=== PATIENT | male | born 1960 | race Caucasian/White ===

== ENCOUNTER 2017-09-26 10:30 | Outpatient (CLI) | payer BC ==
[~2017-09-26] VITALS: Ht 180.3 cm; Wt 120.7 kg
[2017-09-26 10:44] VITALS: BP 139/93
[2017-09-26] MEDS ORDERED: LISI-552 PO (10:51)
[2017-09-26] MEDS ORDERED: AMLO10TA2 PO (10:51)
[2017-09-26] MEDS ORDERED: CLON0.1T PO (10:51)
[2017-09-26] MEDS ORDERED: HYDR-3820 PO (10:51)
[2017-09-26 11:23] LABS: BASOPHILS % (AUTO) 0 % (0-10); EOSINOPHILS # (AUTO) 0.2 10^3/uL (0.0-0.3); EOSINOPHILS % (AUTO) 3 % (0-10); HEMATOCRIT 40 % (40-54); HEMOGLOBIN 12.9 G/DL (13.3-17.7); LYMPHOCYTES # (AUTO) 1.3 X 10^3 (1.0-4.0); LYMPHOCYTES % (AUTO) 24 % (12-44); MEAN CORPUSCULAR HEMOGLOBIN 28 PG (25-34); MEAN CORPUSCULAR HGB CONC 33 G/DL (32-36); MEAN CORPUSCULAR VOLUME 86 FL (80-99); MEAN PLATELET VOLUME 8.4 FL (7.4-10.4); MONOCYTES # (AUTO) 0.4 X 10^3 (0.0-1.0); MONOCYTES % (AUTO) 7 % (0-12); NEUTROPHILS # (AUTO) 3.6 X 10^3 (1.8-7.8); NEUTROPHILS % (AUTO) 66 % (42-75); PLATELET COUNT 357 10^3/uL (130-400); RED BLOOD COUNT 4.62 10^6/uL (4.35-5.85); RED CELL DISTRIBUTION WIDTH 12.9 % (10.0-14.5); WHITE BLOOD COUNT 5.5 10^3/uL (4.3-11.0)
[2017-09-26 11:39] LABS: BUN/CREATININE RATIO 18; CARBON DIOXIDE 23 MMOL/L (21-32); CHLORIDE 106 MMOL/L (98-107); CREATININE SERUM 0.85 MG/DL (0.60-1.30); GFR ESTIMATED > 60; GLUCOSE 111 MG/DL (70-105); POTASSIUM 3.8 MMOL/L (3.6-5.0); SODIUM 138 MMOL/L (135-145)
[2017-09-26] MEDS ORDERED: FURO20TA4 PO (13:50)
== END 2017-09-26 11:15 | disposition home or self-care (01) ==
LOC: PREOP 10:30
PROVIDERS: ATTEND Orthopaedic Surgery Orthopaedic Surgery of the Spine
DX: Z01.810 Encounter for preprocedural cardiovascular examination (principal); Z01.812 Encounter for preprocedural laboratory examination; Z11.2 Encounter for screening for other bacterial diseases; M41.9 Scoliosis, unspecified
CPT/HCPCS: 36415; 80048; 85025; 86850; 86900; 86901; 87081; 93005

== ENCOUNTER 2017-12-27 09:00 | Outpatient (CLI) | payer BC ==
[~2017-12-27] VITALS: Ht 180.3 cm; Wt 120.7 kg
[~2017-12-27 09:00] MED LIST: AMLO10TA6 PO; CLON0.1T PO; FURO20TA4 PO; HYDR-3820 PO; LISI-552 PO
== END 2017-12-27 16:00 | disposition home or self-care (01) ==
LOC: PREOP 09:00
PROVIDERS: ATTEND Orthopaedic Surgery Orthopaedic Surgery of the Spine
DX: Z01.818 Encounter for other preprocedural examination (principal)

== ENCOUNTER 2018-01-07 08:44 | Inpatient (IN) | payer BC ==
[2018-01-07] VITALS (12 sets, daily range): BP systolic 96–157; BP diastolic 61–105
[~2018-01-07] VITALS: Ht 180.3 cm; Wt 120.7 kg
--- OUTSIDE RECORDS SUMMARY | 2018-01-07 08:48 | XMS REPORT | Clinical Summary ---
Author Author MD Vickie, Chente Adkins [facility], [facility] Address [address] [facility] [address] [place] [address] Phone Care Team Providers Care Cooker Sulfate Name Role Phone MD Vickie, Chente Adkins Unavailable Conditions or Problems Problem Name Problem Code Onset Date Status Entry Date Provider Comment Standard Description Annotate Scoliosis, lumbar spine 312840684 (SNOMED CT) Active Stacey Diaz Scoliosis of lumbar spine Gait postural instability 46545793 (SNOMED CT) Active Stacey Diaz Unsteady when walking Spinal stenosis, lumbar region without neurogenic claudication 60262731 ( SNOMED CT) Active Stacey Diaz Spinal stenosis of lumbar region Post-laminectomy syndrome 74927938 (SNOMED CT) Active Stacey Diaz Post-laminectomy syndrome Degenerative disc disease, lumbar spine 49502911 (SNOMED CT) Active Stacey Diaz Degeneration of lumbar intervertebral disc Back pain, low 146636306 (SNOMED CT) Active Tsacey Diaz Low back pain Medications Medication Instructions Start Date Stop Date Generic Name ND Provider AMLODIPINE BESYLATE 10 MG TABS TK 1 T PO DAILY AMLODIPINE BESYLATE [id number] Daphiney Garcia LISINOPRIL 20 MG TABS TK 1 T PO DAILY LISINOPRIL [id number] Daphiney Garcia HYDROCODONE-ACETAMINOPHEN 10-325 MG TABS TK 1 T PO Q 4 HOURS PRN FOR MODERATE PAIN. MAX DAILY AMOUNT 6 TABLETS HYDROCODONE-ACETAMINOPHEN 15234028082 Daphiney Garcia CYCLOBENZAPRINE HCL 10 MG TABS TK 1 T PO TID CYCLOBENZAPRINE HCL 71682485182 Tito Garcia CLONIDINE HCL 0.1 MG TABS TAKE 1 TABLET PO TID CLONIDINE HCL 79297872775 Tito Garcia FUROSEMIDE 20 MG TABS FUROSEMIDE 58771447202 Tito Garcia ASPIRIN EC LOW DOSE 81 MG TBEC TK 1 T PO DAILY ASPIRIN 65302298579 Tito Solvedra HYDROCODONE-ACETAMINOPHEN 7.5-325 MG TABS TK 1 T PO Q 6 HOURS PRN FOR PAIN HYDROCODONE-ACETAMINOPHEN 74714846158 Tito Solvedra MELOXICAM 7.5 MG TABS TK 1 T PO DAILY MELOXICAM 40683597704 Tito Solvedra PANTOPRAZOLE SODIUM 40 MG TBEC TK 1 T PO DAILY PANTOPRAZOLE SODIUM 02094162627 Tito Solvedra TRAMADOL HCL 50 MG TABS TK 2 TS PO Q 6 HOURS PRN TRAMADOL HCL 65852099221 Tito Solvedra DIAZEPAM 5 MG TABS TK 1 T PO NIGHTLY DIAZEPAM 72551539771 Tito Solvedra HYDROCODONE-ACETAMINOPHEN 5-325 MG TABS TK 1 T PO Q 4 H PRN P MAX 6 PER DAY HYDROCODONE-ACETAMINOPHEN 72962884532 Tito Solvedra SULFAMETHOXAZOLE-TRIMETHOPRIM 800-160 MG TABS TK 1 T PO BID FOR 7 DAYS SULFAMETHOXAZOLE-TRIMETHOPRIM 72005617030 Tito Solvedra Medications Administered No information available. Allergies, Adverse Reactions, Alerts Observed no known allergies at Results Date Name Value Unit Range Flag Description Office Visit: SPINE NEW SCOLIOSIS LUMBAR, NO INJURY OR SURGERY, PREVIOUS ROLAND... 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 Procedures Code Procedure Name Date Entry Date REF SEND LETTER TO REF CPT-72455 Lumbar Spine 4-6 Views Vital Signs Date Name Value Unit Description BMI (Body Mass Index) 36.40 kg/m2 Body Mass Index [Ratio] Height 71 [in_us] height E&M Weight Measured 261 [lb_av] weight E&M Encounters Code Encounter Date Provider Facility [id number] 76382- New Level III Chente Johnston MD [facility], [facility] Social History Concept Description Observation Name Observation Value Units Start Date Alcohol use ETOH USE No Never smoker SMOK STATUS Never smoker
--- OUTSIDE RECORDS SUMMARY | 2018-01-07 08:48 | XMS REPORT ---
Author Author SURINDER SMITH [facility] Address Unknown Care Team Providers Care Supplier Quality Engineering Manager Name Role Phone SURINDER SMITH Unavailable PROBLEMS Unknown Problems ALLERGIES No Known Allergies ENCOUNTERS Encounter Location Date Diagnosis [facility] [id number] [phone] May, Dental caries K02.9 [facility] [address] [id number] Apr, Dental examination Z01.20 IMMUNIZATIONS No Known Immunizations SOCIAL HISTORY Never Assessed REASON FOR VISIT carolyn PLAN OF CARE Activity Details Follow Up prn Reason:TE root tips #30 VITAL SIGNS Blood pressure systolic 124 mmHg 2017-04-20 Blood pressure diastolic 77 mmHg 2017-04-20 MEDICATIONS Medication Instructions Dosage Frequency Start Date End Date Duration Status Fish Oil Active Hydrocodone-Acetaminophen Active RESULTS No Results PROCEDURES Procedure Date Ordered Result Body Site LTD ORAL EVALUATION - PROBLEM FOCUS Apr 20, 2017 INTRAORL-PERIAPICAL 1 FILM [id number] Apr 20, 2017 BITEWING - SINGLE FILM Apr 20, 2017 INSTRUCTIONS MEDICATIONS ADMINISTERED No Known Medications MEDICAL (GENERAL) HISTORY Type Description Date Medical History high blood pressure Surgical History back surgery Surgical History neck surgery Hospitalization History above surgery
--- OUTSIDE RECORDS SUMMARY | 2018-01-07 08:48 | XMS REPORT | Clinical Summary ---
Author Author MD Vickie, Chente Adkins Organization [facility], [facility] Address [address] [facility] [address] [place] [address] Phone Care Team Providers Care Mill Tender Washing Name Role Phone MD Vickie, Chente Adkins Unavailable Conditions or Problems Problem Name Problem Code Onset Date Status Entry Date Provider Comment Standard Description Annotate Scoliosis, lumbar spine 690924440 (SNOMED CT) Active Stacey Diaz Scoliosis of lumbar spine Gait postural instability 89864462 (SNOMED CT) Active Stacey Diaz Unsteady when walking Spinal stenosis, lumbar region without neurogenic claudication 86669737 ( SNOMED CT) Active Stacey Diaz Spinal stenosis of lumbar region Post-laminectomy syndrome 75300411 (SNOMED CT) Active Stacey Diaz Post-laminectomy syndrome Degenerative disc disease, lumbar spine 71648670 (SNOMED CT) Active Stacey Diaz Degeneration of lumbar intervertebral disc Back pain, low 569483800 (SNOMED CT) Active Staceyhussein Diaz Low back pain Medications Medication Instructions Start Date Stop Date Generic Name [facility] Provider AMLODIPINE BESYLATE 10 MG TABS TK 1 T PO DAILY AMLODIPINE BESYLATE [id number] Daphiney Garcia LISINOPRIL 20 MG TABS TK 1 T PO DAILY LISINOPRIL 10516518697 Daphiney Garcia HYDROCODONE-ACETAMINOPHEN 10-325 MG TABS TK 1 T PO Q 4 HOURS PRN FOR MODERATE PAIN. MAX DAILY AMOUNT 6 TABLETS HYDROCODONE-ACETAMINOPHEN 11251393461 Daphiney Garcia CYCLOBENZAPRINE HCL 10 MG TABS TK 1 T PO TID CYCLOBENZAPRINE HCL 05780952040 Tito Solvedra CLONIDINE HCL 0.1 MG TABS TAKE 1 TABLET PO TID CLONIDINE HCL 17485223386 Tito Solvedra FUROSEMIDE 20 MG TABS FUROSEMIDE 89390323963 Tito Garcia ASPIRIN EC LOW DOSE 81 MG TBEC TK 1 T PO DAILY ASPIRIN 99781885997 Tito Solvedra HYDROCODONE-ACETAMINOPHEN 7.5-325 MG TABS TK 1 T PO Q 6 HOURS PRN FOR PAIN HYDROCODONE-ACETAMINOPHEN 18852717447 Tito Solvedra MELOXICAM 7.5 MG TABS TK 1 T PO DAILY MELOXICAM 97323357694 Tito Solvedra PANTOPRAZOLE SODIUM 40 MG TBEC TK 1 T PO DAILY PANTOPRAZOLE SODIUM 82670567297 Tito Solvedra TRAMADOL HCL 50 MG TABS TK 2 TS PO Q 6 HOURS PRN TRAMADOL HCL 78143389533 Tito Solvedra DIAZEPAM 5 MG TABS TK 1 T PO NIGHTLY DIAZEPAM 98243389049 Tito Solvedra HYDROCODONE-ACETAMINOPHEN 5-325 MG TABS TK 1 T PO Q 4 H PRN P MAX 6 PER DAY HYDROCODONE-ACETAMINOPHEN 02548909590 Tito Garcia SULFAMETHOXAZOLE-TRIMETHOPRIM 800-160 MG TABS TK 1 T PO BID FOR 7 DAYS SULFAMETHOXAZOLE-TRIMETHOPRIM 96690789114 Tito Garcia Medications Administered No information available. Allergies, Adverse Reactions, Alerts Observed no known allergies at Results Date Name Value Unit Range Flag Description Office Visit: SPINE NEW SCOLIOSIS LUMBAR, NO INJURY OR SURGERY, PREVIOUS ROLAND... 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 Procedures Code Procedure Name Date Entry Date REF SEND LETTER TO REF CPT-78436 Lumbar Spine 4-6 Views Vital Signs Date Name Value Unit Description BMI (Body Mass Index) 36.40 kg/m2 Body Mass Index [Ratio] Height 71 [in_us] height E&M Weight Measured 261 [lb_av] weight E&M Encounters Code Encounter Date Provider Facility CPT-34246 81616- New Level III Chente Johnston MD [facility], [facility] Social History Concept Description Observation Name Observation Value Units Start Date Alcohol use ETOH USE No Never smoker SMOK STATUS Never smoker
--- OUTSIDE RECORDS SUMMARY | 2018-01-07 08:48 | XMS REPORT ---
Author Author SURINDER SMITH [facility] Address Unknown Care Team Providers Care Product Support Technician Name Role Phone SURINDER SMITH Unavailable PROBLEMS Unknown Problems ALLERGIES No Known Allergies ENCOUNTERS Encounter Location Date Diagnosis [facility] [id number] [phone] May, Dental caries K02.9 [facility] [id number] [phone] Apr, Dental examination Z01.20 IMMUNIZATIONS No Known Immunizations SOCIAL HISTORY Never Assessed REASON FOR VISIT TE ROOT TIPS #30 PLAN OF CARE Activity Details Follow Up prn Reason:DIPTI VITAL SIGNS Blood pressure systolic 185 mmHg 2017-05-08 Blood pressure diastolic 106 second time 144 mmHg 2017-05-08 MEDICATIONS Medication Instructions Dosage Frequency Start Date End Date Duration Status Norvasc Active Lisinopril Active Lasix Active Fish Oil Active Sulfamethoxazole Active Hydrocodone-Acetaminophen Active Flexeril Active Amlodipine Besylate Active Furosemide Active Clonidine HCl Active Cyclobenzaprine HCl Active Viagra Active RESULTS No Results PROCEDURES Procedure Date Ordered Result Body Site EXTRAC ERUPTED TOOTH/EXPOSED ROOT May 08, 2017 INSTRUCTIONS MEDICATIONS ADMINISTERED No Known Medications MEDICAL (GENERAL) HISTORY Type Description Date Medical History high blood pressure Surgical History back surgery Surgical History neck surgery Hospitalization History above surgery
--- OUTSIDE RECORDS SUMMARY | 2018-01-07 08:48 | XMS REPORT | Continuity of Care Document ---
Author Author [facility] Organization [facility] Address Unknown Phone Unavailable Allergies Active Description Code Type Severity Reaction Onset Reported/Identified Relationship to Patient Clinical Status Yes No Known Drug Allergies [id number] Drug Allergy Unknown N/A 09/26/2017 Medications There is no data. Problems Date Dx Coded Attending Type Code Diagnosis Diagnosed By 12/25/2017 RAFIQ DOS SANTOS MD, Ot Z01.818 ENCOUNTER FOR OTHER PREPROCEDURAL EXAMIN 12/27/2017 RAFIQ DOS SANTOS MD, Ot Z01.818 ENCOUNTER FOR OTHER PREPROCEDURAL EXAMIN 12/28/2017 RAFIQ DOS SANTOS MD, Ot Z01.818 ENCOUNTER FOR OTHER PREPROCEDURAL EXAMIN Procedures There is no data. Results Test Result Range Complete blood count (CBC) with automated white blood cell (WBC) differential - 09/26/17 11:10 Blood leukocytes automated count (number/volume) 5.5 10*3/uL 4.3-11.0 Blood erythrocytes automated count (number/volume) 4.62 10*6/uL 4.35-5.85 Venous blood hemoglobin measurement (mass/volume) 12.9 g/dL 13.3-17.7 Blood hematocrit (volume fraction) 40 % 40-54 Automated erythrocyte mean corpuscular volume 86 [foz_us] 80-99 Automated erythrocyte mean corpuscular hemoglobin (mass per erythrocyte) 28 pg 25-34 Automated erythrocyte mean corpuscular hemoglobin concentration measurement ( mass/volume) 33 g/dL 32-36 Automated erythrocyte distribution width ratio 12.9 % 10.0-14.5 Automated blood platelet count (count/volume) 357 10*3/uL 130-400 Automated blood platelet mean volume measurement 8.4 [foz_us] 7.4-10.4 Automated blood neutrophils/100 leukocytes 66 % 42-75 Automated blood lymphocytes/100 leukocytes 24 % 12-44 Blood monocytes/100 leukocytes 7 % 0-12 Automated blood eosinophils/100 leukocytes 3 % 0-10 Automated blood basophils/100 leukocytes 0 % 0-10 Blood neutrophils automated count (number/volume) 3.6 10*3 1.8-7.8 Blood lymphocytes automated count (number/volume) 1.3 10*3 1.0-4.0 Blood monocytes automated count (number/volume) 0.4 10*3 0.0-1.0 Automated eosinophil count 0.2 10*3/uL 0.0-0.3 Automated blood basophil count (count/volume) 0.0 10*3/uL 0.0-0.1 Whole blood basic metabolic panel - 09/26/17 11:10 Serum or plasma sodium measurement (moles/volume) 138 mmol/L 135-145 Serum or plasma potassium measurement (moles/volume) 3.8 mmol/L 3.6-5.0 Serum or plasma chloride measurement (moles/volume) 106 mmol/L 98-107 Carbon dioxide 23 mmol/L 21-32 Serum or plasma anion gap determination (moles/volume) 9 mmol/L 5-14 Serum or plasma urea nitrogen measurement (mass/volume) 15 mg/dL 7-18 Serum or plasma creatinine measurement (mass/volume) 0.85 mg/dL 0.60-1.30 Serum or plasma urea nitrogen/creatinine mass ratio 18 NRG Serum or plasma creatinine measurement with calculation of estimated glomerular filtration rate > NRG Serum or plasma glucose measurement (mass/volume) 111 mg/dL 70-105 Serum or plasma calcium measurement (mass/volume) 9.0 mg/dL 8.5-10.1 Blood type T Indirect antibody screen panel - 09/26/17 11:10 ABO+Rh group AP NRG Blood group antibody screen NEGATIVE NRG Methicillin resistant Staphylococcus aureus (MRSA) screening culture - 11:10 Methicillin resistant Staphylococcus aureus (MRSA) screening culture NEG NRG Encounters ACCT No. Visit Date/Time Discharge Status Pt. Type Provider Facility Loc./Unit Complaint [id number] 10/02/2017 20:19:10 10/02/2017 23:59:59 CLS Outpatient MD Vickie, Chente Adkins [id number] 05/08/2017 15:00:00 05/08/2017 23:59:59 CLS Outpatient AFIA LAC, [facility] [id number] 12/27/2017 09:00:00 12/27/2017 16:00:00 DIS Outpatient RAFIQ DOS SANTOS MD [facility] PREOP SCOLIOSIS [id number] 10/08/2017 07:30:00 10/08/2017 23:59:59 CLS Preadmit RAFIQ DOS SANTOS MD [facility] SDC SCOLIOSIS [id number] 09/26/2017 10:30:00 09/26/2017 11:15:00 DIS Outpatient RAFIQ DOS SANTOS MD [facility] PREOP SCOLIOSIS [id number] 01/07/2018 08:44:00 ACT Inpatient RAFIQ DOS SANTOS MD [facility] 4TH SCOLIOSIS
[2018-01-07] MEDS ORDERED: VANCOMYCIN 1000 MG/VIAL ONE (09:29)
[2018-01-07] MEDS ORDERED: ceFAZolin 2 GM IV Premixed 50 ML ONE (09:30)
[2018-01-07] MEDS ORDERED: GENTAMICIN 40 MG/ML 2 ML INJ SDV ONE ×2 (09:30→16:18)
[2018-01-07 09:32] LABS: BASOPHILS % (AUTO) 0 % (0-10); EOSINOPHILS # (AUTO) 0.1 10^3/uL (0.0-0.3); EOSINOPHILS % (AUTO) 2 % (0-10); HEMATOCRIT 46 % (40-54); HEMOGLOBIN 15.1 G/DL (13.3-17.7); LYMPHOCYTES # (AUTO) 1.6 X 10^3 (1.0-4.0); LYMPHOCYTES % (AUTO) 18 % (12-44); MEAN CORPUSCULAR HEMOGLOBIN 29 PG (25-34); MEAN CORPUSCULAR HGB CONC 33 G/DL (32-36); MEAN CORPUSCULAR VOLUME 87 FL (80-99); MEAN PLATELET VOLUME 8.4 FL (7.4-10.4); MONOCYTES # (AUTO) 0.5 X 10^3 (0.0-1.0); MONOCYTES % (AUTO) 6 % (0-12); NEUTROPHILS # (AUTO) 6.3 X 10^3 (1.8-7.8); NEUTROPHILS % (AUTO) 74 % (42-75); PLATELET COUNT 383 10^3/uL (130-400); RED BLOOD COUNT 5.26 10^6/uL (4.35-5.85); WHITE BLOOD COUNT 8.6 10^3/uL (4.3-11.0)
[2018-01-07] MEDS: LACTATED RINGERS 1,000 ML IV PRN ×5 (09:37→16:45)
[2018-01-07] MEDS ORDERED: fentaNYL INJECTION 250 MCG/5 ML AMP ONE (09:37)
[2018-01-07] MEDS ORDERED: MIDAZOLAM 2 MG/2 ML (VERSED) VIAL ONE (09:37)
[2018-01-07] MEDS ORDERED: DEXMEDETOMIDINE 200 MCG/2 ML (PRECEDEX) VIAL IV ONE ×4 (10:27→16:38)
[2018-01-07] MEDS ORDERED: DEXAMETHASONE 10 MG/ML (DECADRON) 1 ML VIAL ONE (10:27)
[2018-01-07] MEDS ORDERED: SEVOFLURANE (ULTANE) 15 ML INHAL SOLN ONE ×17 (10:27→17:37)
[2018-01-07] MEDS ORDERED: ROCURONIUM 10 MG/ML 5 ML SYRINGE IV ONE ×3 (10:27→14:31)
[2018-01-07] MEDS ORDERED: ONDANSETRON 4 MG/2 ML (SDV) Z0FRAN ONE (10:27)
[2018-01-07] MEDS ORDERED: TRANEXAMIC ACID 100 MG/ML 10 ML INJECTION IV ONE ×2 (10:27→13:32)
[2018-01-07] MEDS ORDERED: SUCCINYLCHOLINE INJ 100 MG/5 ML SYR ONE (10:27)
[2018-01-07] MEDS ORDERED: fentaNYL INJECTION 100 MCG/2 ML AMP ONE ×5 (12:11→15:24)
[2018-01-07] MEDS ORDERED: ceFAZolin 1,000 MG/10 ML (ANCEF) VIAL ONE ×4 (13:32→17:11)
[2018-01-07] MEDS ORDERED: ceFAZolin 1,000 MG/10 ML (ANCEF) VIAL IV ONE ×2 (13:45→17:15)
[2018-01-07] MEDS ORDERED: morphine INJ 10 MG/ML 1ML (SYR OR VIAL) ONE ×3 (15:18→19:53)
[2018-01-07] MEDS ORDERED: MEPERIDINE (DEMEROL) INJ 50 MG/ML ONE (15:25)
[2018-01-07] MEDS ORDERED: proPOfol 200 MG/20 ML (DIPRIVAN) VIAL IV ONE ×2 (17:37)
--- NOTE | 2018-01-07 18:03 | Progress Note-Post Operative ---
Post-Operative Progess Note Surgeon (s)/Gasoline Power Shovel Operator (s) Surgeon RAFIQ DOS SANTOS MD Gasoline Power Shovel Operator: TYRONE Duran Pre-Operative Diagnosis Stenosis, scoliosis Post-Operative Diagnosis Same Procedure & Operative Findings Date of Procedure 01/07/18 Procedure Performed/Findings T6-Pelvis AP fusion Anesthesia Type GETA Estimated Blood Loss Estimated blood loss (mL): 1300 Specimens/Packing Specimens Removed None RAFIQ DOS SANTOS MD Jan 07, 2018 6:03 pm
--- NOTE | 2018-01-07 18:53 | Diagnostic Imaging Report ---
INDICATION: Undergoing multilevel interbody fusion. TECHNIQUE: Intraprocedural images thoracolumbar spine, 11:07 AM through 5:53 PM CORRELATION STUDY: None FINDINGS: Fluoroscopy utilized by Dr. Roman for extensive thoracolumbar spine surgery including multilevel interbody fusion and extensive posterior thoracolumbar fusion. Fluoroscopy time: 2 minutes 14 seconds IMPRESSION: 1. Extensive thoracolumbar sacral spine fusion Dictated by: Dictated on workstation # [id number]
[2018-01-07] MEDS ORDERED: PROMETHAZINE 25 MG (PHENERGAN) TAB PO PRN (19:00)
[2018-01-07] MEDS ORDERED: ONDANSETRON 4 MG/2 ML (SDV) Z0FRAN IV PRN (19:00)
[2018-01-07] MEDS ORDERED: BISACODYL 10 MG SUPP (DULCOLAX) PR PRN (19:00)
[2018-01-07] MEDS ORDERED: ACETAMINOPHEN 325 MG TABLET PO PRN (19:00)
[2018-01-07] MEDS: morphine INJ 10 MG/ML 1ML (SYR OR VIAL) IVP PRN ×2 (20:52→23:36)
[2018-01-07] MEDS: DOCUSATE SODIUM 100 MG (COLACE) CAP PO SCH (21:22)
[2018-01-07] MEDS: NS IV 1000 ML 1,000 ML IV SCH (21:22)
[2018-01-07] MEDS: SENNOSIDES 8.6 MG (SENOKOT) TAB PO SCH (21:22)
[2018-01-07] MEDS: oxyCODONE/APAP 10/325MG (PERCOCET 10) TABLET PO PRN (21:22)
[2018-01-07] MEDS: POLYETHYLENE GLYCOL 17 GM (MIRALAX) PACK PO SCH (21:29)
[2018-01-07] MEDS ORDERED: ceFAZolin INJECTION 2,000 MG in NS (IVPB) 50 ML IV SCH (23:00)
[2018-01-07] MEDS: ceFAZolin 2 GM IV Premixed 50 ML IV SCH (23:00)
[2018-01-08] VITALS (21 sets, daily range): BP systolic 95–177; BP diastolic 59–108
[2018-01-08] MEDS: morphine INJ 10 MG/ML 1ML (SYR OR VIAL) IVP PRN (01:13)
[2018-01-08] MEDS: oxyCODONE/APAP 10/325MG (PERCOCET 10) TABLET PO PRN ×4 (01:13→17:05)
[2018-01-08] MEDS: fentaNYL INJECTION 100 MCG/2 ML AMP IV PRN ×7 (02:59→23:34)
--- NOTE | 2018-01-08 02:59 | OPERATIVE REPORT ---
DATE OF SERVICE: 01/07/2018 PREOPERATIVE DIAGNOSES: 1. Post-laminectomy syndrome, progressive idiopathic scoliosis, severe lumbar neural foraminal stenosis due to disk and osseous structures and slippage. 2. Lumbar radiculopathy. POSTOPERATIVE DIAGNOSES: 1. Post-laminectomy syndrome, progressive idiopathic scoliosis, severe lumbar neural foraminal stenosis due to disk and osseous structures and slippage. 2. Lumbar radiculopathy. PROCEDURES PERFORMED: 1. L4-L5 and L5-S1 anterior lumbar interbody fusions for deformity as well as L1-L2, L2-L3 and L3-L4 left-sided anterolateral transpsoas interbody fusions for deformity totalling 5 levels of anterior interbody fusion for deformity. 2. L1-L2, L2-L3, L3-L4, L4-L5 and L5-S1 interbody cage instrumentation without interval fixation. 3. L5-S1 anterior plate instrumentation. 4. T6 to the pelvis posterior spinal fusion for deformity (13 Levels). 5. T6 to the pelvis posterior segmental instrumentation. 6. Pelvic fixation at the caudal end of a construct. 7. Revision bilateral L3-L4 laminectomy, medial facetectomy, foraminotomy. 8. Revision L2-L3 laminectomy, medial facetectomy, foraminotomy. 9. L1-L2 laminectomy, bilateral medial facetectomy, foraminotomy, partially a revision. 10. Allograft for spine surgery morcellized autograft for spine surgery with local. DATE AND TIME OF SURGERY: Please see anesthesia record. IMPLANTS USED: K2M Selby pedicle screw system with marifer-to-marifer connectors, K2M Point Arena lateral cages, K2M [place] 2-hole and 1-hole plates, 4web ALIF spacers, Medtronic Magnifuse bone graft K2M [place] bone graft. SURGEON: Rafiq Dos Santos MD. ELECTRICAL INSTALLER: TAZ Duran. ROLE OF INSURANCE AGENT: Aid in retraction of the procedure, aid in implantation incisional closure. ANESTHESIA: General endotracheal. ESTIMATED BLOOD LOSS: 1300 mL. INTRAVENOUS FLUIDS: Please see anesthesia record. ANTIBIOTICS: Ancef in repeated doses. COMPLICATIONS: None. INDICATIONS FOR PROCEDURE: The patient is a 57-year-old male with progressive degenerative scoliosis, severe neural foraminal stenosis collapse, progressive deformity, had a decompression up at with worsening of his symptoms, worsening of his stenosis, failed conservative therapy, desires operative treatment. NEUROMONITORING: Standard intraoperative neurophysiologic monitoring carried out by means of real time continuous high quality bidirectional mode, audio and visual communication to both the batch room technician and surgeon by Dr. Dangelo was performed. SSEPS, EMGs, TcMEPs, TOFs were carried out continuously throughout the procedure stable. DESCRIPTION OF PROCEDURE: The patient was taken from preoperative holding area and brought back to the operative suite. After adequate induction of general anesthetic, preoperative antibiotics, placed supine on the OR table. Abdomen was prepped and draped in a left-sided retroperitoneal exposure of the 4-5 and 5-1 levels, carried out without difficulty. Once appropriate level was confirmed starting at 4-5, vessels retracted, anterior diskectomy was carried out. Disk decompression all the way back to posterior annulus performed. Deformity correction was achieved and then a 4Web cage filled Allograft bone was impacted into position with great fit achieved at this level. A 1-hole Point Arena plate was affixed to the spine to prevent back out of the cage. Procedure was then carried out at the 5-1 level in a similar manner and a similar 12-degree 4Web cage was impacted at this level and a 2-hole plate securely affixing L5-S1 was performed. Once that was performed, the wound was closed in layers. The patient placed in lateral decubitus position. Standard transpsoas approach to the 1-2, 2-3, and 3-4 levels was carried out utilizing the K2M Point Arena lateral retractor set. Starting at 3-4, disk was prepped. Trial spacer was utilized and the appropriate sized 10 tall Point Arena cage filled allograft bone was impacted into position with great deformity correction achieved. 1-2 was then performed in a similar manner and then 2-3 was inspected and it was easily accessed and therefore the lateral osteophyte was removed and deformity correction at 2-3 was achieved as well with a similar cage. Once all three levels had been treated laterally for treatment from L1-S1 in an anterolateral deformity correction manner, wound was closed in layers. The patient was turned prone on the Montez table, careful padding to all extremities, sterilely prepped and draped posterior thoracic and lumbar and pelvic spine. Incision was made from T6 to pelvis. Full exposure was carried out. Dissection out through the previous scar tissue and once full exposure and levels confirmed, a revision laminectomy of 2-3, 3-4, and then partial revision at 1-2, which had already been approached, but was still quite stenotic decompressing the left lateral recess and foramen of these levels and centrally at 1-2. Once full and adequate revision decompression was achieved, hemostasis achieved, attention directed to placement of screws. Bilateral T6 through S1 screws, except for the right T12, which was skipped, were placed in the bilateral pelvic. S2A1 screws were placed, checked on imaging, checked with neuro monitoring. Rods were contoured and fit and fashioned. Left-sided titanium marifer was placed. Right-sided holding cobalt chrome marifer was placed and then a third cobalt chrome marifer was placed on the left side as well. High speed jennifer was used to decorticate all of the posterior elements from T6 to the pelvis after copious Pulsavac irrigation was utilized and then a combination of autograft and allograft bone was packed posteriorly for the fusion portion of procedure. Deep drain was placed. Wound was closed in layers and the patient was transferred to recovery room in stable condition having tolerated the procedure well with stable spinal monitoring. Job ID: [id number] DocumentID: [id number] Dictated Date: 01/07/2018 18:02:56 Dramatic Director Date: 01/08/2018 02:58:16 Dictated By: RAFIQ DOS SANTOS MD [facility]
[2018-01-08] MEDS: NS IV 1000 ML 1,000 ML IV SCH ×4 (04:01→20:10)
[2018-01-08 04:46] LABS: ALBUMIN 4.1 GM/DL (3.2-4.5); BILIRUBIN,TOTAL 0.5 MG/DL (0.1-1.0); CALCIUM 8.6 MG/DL (8.5-10.1); CREATININE SERUM 1.78 MG/DL (0.60-1.30); MAGNESIUM 2.2 MG/DL (1.8-2.4); PHOSPHORUS 6.6 MG/DL (2.3-4.7); POTASSIUM 5.1 MMOL/L (3.6-5.0); TOTAL PROTEIN 6.3 GM/DL (6.4-8.2)
[2018-01-08 06:06] LABS: HEMOGLOBIN 12.5 G/DL (13.3-17.7); MEAN PLATELET VOLUME 8.8 FL (7.4-10.4); RED BLOOD COUNT 4.42 10^6/uL (4.35-5.85); WHITE BLOOD COUNT 25.1 10^3/uL (4.3-11.0)
--- NOTE | 2018-01-08 06:23 | Progress Note (SOAP) ---
Subjective Date Seen by a Provider: Jan 08, 2018 Time Seen by a Provider: 06:20 Subjective/Events-last exam Awake, very conversant, pain moderate, not well controlled Objective Exam Vital Signs Date Time Temp Pulse Resp B/P (MAP) Pulse Ox O2 Delivery O2 Flow Rate FiO2 01/08/18 06:00 112 10 111/67 (82) 94 Nasal Cannula 3.00 01/08/18 05:00 114 9 102/68 (79) 93 Nasal Cannula 3.00 01/08/18 04:00 120 21 100/71 (81) 91 Nasal Cannula 3.00 01/08/18 04:00 97.6 01/08/18 04:00 97 Nasal Cannula 3.00 01/08/18 03:00 115 10 116/79 (91) 94 Nasal Cannula 3.00 01/08/18 02:00 109 10 108/67 (81) 94 Nasal Cannula 3.00 01/08/18 01:00 107 11 111/70 (84) 95 Nasal Cannula 3.00 01/08/18 01:00 107 01/08/18 00:30 105 11 109/75 (86) 95 Nasal Cannula 3.00 01/08/18 00:00 97.5 01/08/18 00:00 97 Nasal Cannula 3.00 01/07/18 23:42 110 12 124/69 (87) 96 Nasal Cannula 3.00 01/07/18 23:30 102 14 112/77 (89) 98 OxyMask 6.00 01/07/18 23:00 117 12 120/75 (90) 95 OxyMask 6.00 01/07/18 22:30 116 20 119/82 (94) 98 OxyMask 6.00 01/07/18 22:00 100 14 105/70 (82) 95 OxyMask 6.00 01/07/18 21:30 93 16 107/64 (78) 95 OxyMask 6.00 01/07/18 21:00 78 14 109/61 (77) 98 OxyMask 6.00 01/07/18 20:45 80 20 98/63 (75) 94 OxyMask 6.00 01/07/18 20:30 74 12 96/62 (73) 95 OxyMask 6.00 01/07/18 20:22 95 OxyMask 8.00 11/5/18 20:15 77 25 101/65 (77) 93 OxyMask 6.00 01/07/18 20:04 72 25 101/62 (75) 96 OxyMask 6.00 01/07/18 20:00 98.2 01/07/18 20:00 98 OxyMask 6.00 01/07/18 19:00 84 01/07/18 09:20 97.7 94 20 157/105 (122) 99 Room Air I & O 01/08/18 07:00 Intake Total 4350 ml Output Total 2465 ml Balance 1885 ml Capillary Refill : General Appearance: Mild Distress Neck: Non Tender, Supple Respiratory: No Accessory Muscle Use, No Respiratory Distress Cardiovascular: Normal Peripheral Pulses, Tachycardia Gastrointestinal: non tender, soft Extremity: Normal Capillary Refill, No Calf Tenderness Neurologic/Psychiatric: Alert, Oriented x3, No Motor/Sensory Deficits Skin: Normal Color, Warm/Dry Results Lab Laboratory Tests 01/07/18 09:27: White Blood Count 8.6, Red Blood Count 5.26, Hemoglobin 15.1, Hematocrit 46, Mean Corpuscular Volume 87, Mean Corpuscular Hemoglobin 29, Mean Corpuscular Hemoglobin Concent 33, Red Cell Distribution Width 14.0, Platelet Count 383, Mean Platelet Volume 8.4, Neutrophils (%) (Auto) 74, Lymphocytes (%) (Auto) 18, Monocytes (%) (Auto) 6, Eosinophils (%) (Auto) 2, Basophils (%) (Auto) 0, Neutrophils # (Auto) 6.3, Lymphocytes # (Auto) 1.6, Monocytes # (Auto) 0.5, Eosinophils # (Auto) 0.1, Basophils # (Auto) 0.0 01/08/18 04:15: Sodium Level 140, Potassium Level 5.1H, Chloride Level 108H, Carbon Dioxide Level 15L, Anion Gap 17H, Blood Urea Nitrogen 25H, Creatinine 1.78H, Estimat Glomerular Filtration Rate 40, BUN/Creatinine Ratio 14, Glucose Level 149H, Calcium Level 8.6, Corrected Calcium 8.5, Phosphorus Level 6.6H, Magnesium Level 2.2, Total Bilirubin 0.5, Aspartate Amino Transf (AST/SGOT) 41H, Alanine Aminotransferase (ALT/SGPT) 26, Alkaline Phosphatase 84, Total Protein 6.3L, Albumin 4.1 11/6/18 05:56: White Blood Count 25.1H, Red Blood Count 4.42, Hemoglobin 12.5L, Hematocrit 40, Mean Corpuscular Volume 89, Mean Corpuscular Hemoglobin 28, Mean Corpuscular Hemoglobin Concent 32, Red Cell Distribution Width 14.0, Platelet Count 465H, Mean Platelet Volume 8.8 Assessment/Plan Assessment/Plan Assess & Plan/Chief Complaint Scoliosis Post Laminectomy Syndrome Lumbar Stenosis, neural canal and neuroforaminal Hyperkalemia Acute Renal insufficiency Plan: D/W Dr Corley who will assist in care Pain control, medical management Mob[employer]ize RAFIQ DOS SANTOS MD Jan 08, 2018 06:23
[2018-01-08] MEDS: ceFAZolin 2 GM IV Premixed 50 ML IV SCH ×2 (06:34→15:26)
[2018-01-08] MEDS ORDERED: SODIUM BICARB 8.4% 50 MEQ/50 ML (ABBOTT) SYR ONE (06:48)
--- NOTE | 2018-01-08 06:49 | Pulmonary Consultation ---
History of Present Illness History of Present Illness Date of Consultation 01/08/18 06:44 Time Seen by Provider: 06:58 Date of Admission History of Present Illness 57yo with hx Scoliosis with Lumbar stenosis s/p surgery. Pt was admitted to ICU post surgery for close monitoring. Pt complains of moderate back pain from surgery however pain meds are controlling pain. I am consulted for ICU management. Allergies and Home Medications Allergies Coded Allergies: No Known Drug Allergies (Unverified , 09/26/17) Home Medications Amlodipine Besylate 10 Mg Tablet, 10 MG PO DAILY, (Reported) Clonidine HCl 0.1 Mg Tablet, 0.1 MG PO TID, (Reported) Docusate Sodium 100 Mg Capsule, 100 MG PO BID Prescribed by: RAFIQ DOS SANTOS on 01/15/18 0649 Furosemide 20 Mg Tablet, 20 MG PO DAILY PRN for SWELLING IN FEET, (Reported) Lisinopril 20 Mg Tablet, 20 MG PO DAILY, (Reported) Oxycodone HCl 20 Mg Tab.er.12h, 20 MG PO TID Prescribed by: RAFIQ DOS SANTOS on 01/15/18 0649 Oxycodone HCl/Acetaminophen 1 Each Tablet, 1-2 TAB PO Q4H PRN for PAIN-MODERATE Prescribed by: RAFIQ DOS SANTOS on 01/15/18 0649 Sennosides 8.6 Mg Tablet, 8.6 MG PO BID Prescribed by: RAFIQ DOS SANTOS on 01/15/18 0649 Tizanidine HCl 4 Mg Tablet, 4 MG PO TID PRN for SPASMS Prescribed by: RAFIQ DOS SANTOS on 01/15/18 0649 Past Lglhszl-Pxqtyy-Wapxvu Hx Patient Social History Alcohol Use: Denies Use Recreational Drug Use: No Smoking Status: Never a Smoker Recent Foreign Travel: No Contact w/Someone Who Travel: No Recent Infectious Disease Expo: No Recent Hopitalizations: No Seasonal Allergies Seasonal Allergies: No Past Medical History Surgeries: Yes (Left hip replaced, neck fusion, back sx) Respiratory: No Cardiac: Yes Neurological: No Sexually Transmitted Disease: No HIV/AIDS: No Genitourinary: No Gastrointestinal: No Musculoskeletal: Yes Arthritis, Back Injury, Scoliosis Endocrine: No HEENT: Yes ([place]) Loss of Vision: Denies Hearing Impairment: Denies Cancer: No Psychosocial: No Integumentary: No Blood Disorders: No Adverse Reaction/Blood Tranf: No (N/A) Family Medical History Cardiovascular disease 19 FATHER Myocardial infarction 19 FATHER Review of Systems Time Seen by Provider: 06:58 Constitutional: Weakness; No: Fever, Chills, Sweats, Malaise, Other Eyes: No: Pain, Vision change, Conjunctivae inflammation, Eyelid inflammation, Other, Redness ENT: No: Ear pain, Ear discharge, Nose pain, Nose discharge, Nose congestion, Mouth pain, Mouth swelling, Throat pain, Throat swelling, Other Respiratory: No: Cough, Dry, Shortness of breath, SOB with excertion, Wheezing , Hemoptysis, Pleuritic Pain, Sputum, Wheezing, Other Cardiovascular: No: Chest Pain, Palpitations, Orthopnea, Paroxysmal Noc. Dyspnea, Edema, Lt Headedness, Other Sepsis Event Evaluation Height, Weight, BMI Height: 5'11.00" Weight: 266lbs. 0.0oz. 120.435478sk; 37.1 BMI Method: Exam Exam Vital Signs Date Time Temp Pulse Resp B/P (MAP) Pulse Ox O2 Delivery O2 Flow Rate FiO2 01/08/18 06:00 112 10 111/67 (82) 94 Nasal Cannula 3.00 01/08/18 05:00 114 9 102/68 (79) 93 Nasal Cannula 3.00 01/08/18 04:00 120 21 100/71 (81) 91 Nasal Cannula 3.00 01/08/18 04:00 97.6 01/08/18 04:00 97 Nasal Cannula 3.00 01/08/18 03:00 115 10 116/79 (91) 94 Nasal Cannula 3.00 01/08/18 02:00 109 10 108/67 (81) 94 Nasal Cannula 3.00 01/08/18 01:00 107 11 111/70 (84) 95 Nasal Cannula 3.00 01/08/18 01:00 107 01/08/18 00:30 105 11 109/75 (86) 95 Nasal Cannula 3.00 01/08/18 00:00 97.5 01/08/18 00:00 97 Nasal Cannula 3.00 01/07/18 23:42 110 12 124/69 (87) 96 Nasal Cannula 3.00 01/07/18 23:30 102 14 112/77 (89) 98 OxyMask 6.00 01/07/18 23:00 117 12 120/75 (90) 95 OxyMask 6.00 01/07/18 22:30 116 20 119/82 (94) 98 OxyMask 6.00 01/07/18 22:00 100 14 105/70 (82) 95 OxyMask 6.00 01/07/18 21:30 93 16 107/64 (78) 95 OxyMask 6.00 01/07/18 21:00 78 14 109/61 (77) 98 OxyMask 6.00 01/07/18 20:45 80 20 98/63 (75) 94 OxyMask 6.00 01/07/18 20:30 74 12 96/62 (73) 95 OxyMask 6.00 01/07/18 20:22 95 OxyMask 8.00 01/07/18 20:15 77 25 101/65 (77) 93 OxyMask 6.00 01/07/18 20:04 72 25 101/62 (75) 96 OxyMask 6.00 01/07/18 20:00 98.2 01/07/18 20:00 98 OxyMask 6.00 01/07/18 19:00 84 01/07/18 09:20 97.7 94 20 157/105 (122) 99 Room Air I & O 01/08/18 07:00 Intake Total 4350 ml Output Total 2465 ml Balance 1885 ml Height & Weight Height: 5'11.00" Weight: 266lbs. 0.0oz. 120.230562rg; 37.1 BMI Method: General Appearance: Anxious, Mild Distress Neck: Non Tender, Supple Respiratory: No Accessory Muscle Use, No Respiratory Distress Cardiovascular: Normal Peripheral Pulses, Tachycardia Gastrointestinal: non tender, soft Extremity: Normal Capillary Refill, No Calf Tenderness Neurologic/Psychiatric: Alert, Oriented x3, No Motor/Sensory Deficits Skin: Normal Color, Warm/Dry Results Lab Laboratory Tests 01/07/18 09:27 01/08/18 04:15 01/08/18 05:56 Assessment/Plan Assessment/Plan Scoliosis with Lumbar stenosis s/p surgery Acute renal failure with hyperkalemia -Will give a 1 liter bolus of NS -Continue IVF at 150cc/hr NS -Give 2 amps of bicarb -Repeat Labs at 10am Metabolic acidosis -IVF -2amps of bicarb -check LA with next labs Sinus tach -IVF -restart home meds Hx of HTN -Restart home meds after they have been verified -PT was on clonidine BRIGHT RIZO DO Jan 08, 2018 06:49
[2018-01-08] MEDS: PANTOPRAZOLE 40 MG (PROTONIX) TAB PO SCH (06:57)
[2018-01-08] MEDS: MULTIVIT W/MINERALS TAB (THERAGRAN M) PO SCH (06:58)
[2018-01-08] MEDS ORDERED: NS IV 1000 ML 1,000 ML IV SCH ×2 (07:00→10:45)
[2018-01-08] MEDS: oxyCODONE ER 20 MG (OxyCONTIN CR) TAB PO SCH ×3 (08:01→20:03)
[2018-01-08] MEDS: DOCUSATE SODIUM 100 MG (COLACE) CAP PO SCH ×2 (08:01→20:03)
[2018-01-08] MEDS: DIAZEPAM 5 MG (VALIUM) TABLET PO PRN ×3 (08:01→23:34)
[2018-01-08] MEDS: SENNOSIDES 8.6 MG (SENOKOT) TAB PO SCH ×2 (08:01→20:03)
--- NOTE | 2018-01-08 09:20 | Physical Therapy Evaluation ---
PT Evaluation-General Medical Diagnosis Admission Date Jan 07, 2018 at 08:44 Medical Diagnosis: T6 - Pelvis, AP Fusion Onset Date: Jan 07, 2018 Therapy Diagnosis Therapy Diagnosis: Weakness, Debility Height/Weight Height (Feet): 5 Height (Inches): 11.00 Weight (Pounds): 266 Weight (Ounces): 0.0 Precautions Precautions/Isolations: Fall Prevention, Standard Precautions Weight Bear Status Right Lower Extremity: Right Weight Bearing/Tolerated Left Lower Extremity: Left Weight Bearing/Tolerated Referral Physician: Claude Christopher Reason for Referral: Evaluation/Treatment (sc) Medical History Additional Medical History Scoliosis, Lumbar stenosis, Hyperkalemia, Acute Renal Insufficiency Current History Patient admitted to ICU following surgery on thoracic and lumbar spine. Social History Home: Multilevel Current Living Status: Friend Entry Into Home: Stairs With Railing PT Steps Into Home: 2 PT Steps Inside Home: 2 Prior/Core FIM Prior Level of Function Functional [place] Measure 0=Not Assessed/NA 4=Minimal Assistance 1=Total Assistance 5=Supervision or Setup 2=Maximal Assistance 6=Modified [place] 3=Moderate Assistance 7=Complete IndependenceIRFPAI Quality Coding Scale 6 Independent with activity with or without an assistive device 5 Patient requires set up or clean up by helper. Patient completes activity by themselves 4 Supervision or touching assist (CGA). [place] provide cues , steadying assist 3 The helper provides less than half the effort to complete the activity 2 The helper provides more than half the effort to complete the activity 1 Dependent. The helper does all the effort to complete an activity 7 Patient refused to complete or attempt activity 9 The patient did not perform the activity before the current illness or injury 88 Not attempted due to Medical conditions or safety concerns Bed Mobility: 6 Transfers (B,C,W/C) (FIM): 6 Gait: 6 Stairs: 6 Prior Equipment Used: Single point cane PT Evaluation-Current Subjective Pt awake in bed when PT arrived. Patient initially stated that he would not be moving but eventually agreed to PT evaluation. Pain Numeric Pain Scale: 8 Objective Patient Orientation: Mumbles, Normal For Age Problem Solving: Fair Attachments: Faith Catheter, IV ROM/Strength ROM Upper Extremities WNL ROM Lower Extremities WNL Strength Upper Extremities WNL Strength Lower Extremities WNL Integumentary/Posture Bowel Incontinence: No Bladder Incontinence: No Neuromuscular (Tone, Coordination, Reflexes) NT Sensory Vision: Functional Hearing: Functional Sensation Right Upper Extremit: Intact Sensation Left Upper Extremity: Intact Sensation Right Lower Extremit: Intact Sensation Left Lower Extremity: Intact Transfers Functional [place] Measure 0=Not Assessed/NA 4=Minimal Assistance 1=Total Assistance 5=Supervision or Setup 2=Maximal Assistance 6=Modified [place] 3=Moderate Assistance 7=Complete [place] Transfers (B, C, W/C) (FIM): 4 Scootin Rollin Supine to/from Sit: 4 Sit to/from Stand: 4 Gait Mode of Locomotion: Walk Anticipated Mode of Locomotion: Walk Gait (FIM): 1 Distance (FIM): 1=up to 49 ft Distance: 5' Gait Level of Assist: 4 Gait Persons Needed: 1 Gait Assistive Device: FWW Balance Sitting Static: Normal Sitting Dynamic: Normal Standing Static: Good Standing Dynamic: Good Assessment/Needs Patient was able to sit up right in bed with Min A from the PT. Patient uses a clam shell brace when upright and had C/O of dizziness when sitting upright. Pt symptoms improved and was able to stand up and transfer to bedside chair with a FWW requiring CGA. Patient was left with call light, phone and with needs met before PT left room. Patient will benefit from PT to improve overall function for when he returns home. Rehab Potential: Good PT Linseed Oil Boiler Goals Linseed Oil Boiler Goals PT Linseed Oil Boiler Goals Time Frame: Jan 15, 2018 Transfers (B,C,W/C) (FIM): 6 Gait (FIM): 6 Gait distance (FIM): 3=150 ft Distance: 150' Gait Level of Assist: 6 Gait Assistive Device: FWW PT Plan Problem List Problem List: Activity Tolerance, Functional Strength, Balance, Gait, Transfer , Bed Mobility Treatment/Plan Treatment Plan: Continue Plan of Care Treatment Plan: Bed Mobility, Education, Functional Strength, Gait, Safety, Therapeutic Exercise, Transfers Treatment Duration: Jan 15, 2018 Frequency: 11 times per week Estimated Hrs Per Day: .5 hour per day Patient and/or Family Agrees t: Yes Discharge Recommendations Therapy D/C Recommendations: Home w/ Family Support Time/GCodes Time In: 831 Time Out: 849 Total Billed Treatment Time: 18 Total Billed Treatment 1 visit, EVModC - 18 mins CAMILO GUAMAN PT Jan 08, 2018 09:20
[2018-01-08] MEDS ORDERED: SODIUM BICARB 8.4% 50 MEQ/50 ML (ABBOTT) SYR IV ONE (10:00)
--- NOTE | 2018-01-08 10:14 | Anesthesia-General Post-Op ---
General Patient Condition Mental Status/LOC: Same as Preop Cardiovascular: Satisfactory Nausea/Vomiting: Absent Respiratory: Satisfactory Pain: Controlled Complications: Absent Post Op Complications Complications None Follow Up Care/Instructions Patient Instructions None needed. Anesthesia/Patient Condition Patient Condition Patient is doing well, no complaints, stable vital signs, no apparent adverse anesthesia problems. No complications reported per nursing. REYNOLD VILLALOBOS CRNA Jan 08, 2018 10:14
[2018-01-08 10:36] LABS: CALCIUM 8.1 MG/DL (8.5-10.1); CREATININE SERUM 2.19 MG/DL (0.60-1.30); POTASSIUM 5.3 MMOL/L (3.6-5.0)
--- NOTE | 2018-01-08 10:41 | Consultation-Hospitalist ---
DANIEL FOSTER 01/08/18 1041: HPI History of Present Illness: HPI/Chief Complaint CC: s/p spine surgery uncomplicated by Dr Roman POD # 1 HPI: This is a 57yoWM clinic patient of Dr Campuzano in [facility] who presents after an extensive spine surgery per Dr Roman. He has been monitored overnight in the ICU and has done well. Pt reports pain is moderate to severe and overall doing ok as expected. Checked meds and labs. Patient did have elevated creatinine and metabolic acidosis so Dr Corley has ordered IVF with bicarb. Source: patient Exam Limitations: no limitations Date Seen 01/08/18 Attending Physician Sedrick Roman MD PCP Natalio Campuzano MD Referring Physician Date of Admission Jan 07, 2018 at 08:44 Home Medications & Allergies Home Medications Reviewed patient Home Medication Reconciliation performed by pharmacy medication reconciliations research and development technician and/or nursing. Patients Allergies have been reviewed. Allergies Allergies Coded Allergies No Known Drug Allergies (Unverified09/26/17) Past Rqcbqrc-Vxopal-Sonxbq Hx Past Med/Social Hx: Reviewed Nursing Past Med/Soc Hx, Reviewed and Corrections made Patient Social History Marrital Status: Alcohol Use: Denies Use Recreational Drug Use: No Smoking Status: Never a Smoker Physical Abuse Screen: No Sexual Abuse: No Recent Foreign Travel: No Contact w/other who traveled: No Recent Hopitalizations: No Recent Infectious Disease Expo: No Seasonal Allergies Seasonal Allergies: No Past Medical History Surgeries: Orthopedic Cardiac: High Cholesterol, Hypertension Sexually Transmitted Disease: No HIV/AIDS: No Musculoskeletal: Arthritis, Back Injury, Scoliosis Loss of Vision: Denies Hearing Impairment: Denies History of Blood Disorders: No Adverse Reaction to Blood Obrien: No (N/A) Family History Cardiovascular disease 19 FATHER Myocardial infarction 19 FATHER Hypertension Review of Systems Constitutional: see HPI EENTM: no symptoms reported Respiratory: no symptoms reported Cardiovascular: no symptoms reported Gastrointestinal: no symptoms reported Genitourinary: no symptoms reported Musculoskeletal: back pain Skin: no symptoms reported Psychiatric/Neurological: No Symptoms Reported All Other Systems Reviewed Negative Unless Noted: Yes Physical Exam Physical Exam Vital Signs Vital Signs - First Documented 01/07/18 09:20 Temp 97.7 Pulse 94 Resp 20 B/P (MAP) 157/105 (122) Pulse Ox 99 O2 Delivery Room Air Capillary Refill : Height, Weight, BMI Height: 5'11.00" Weight: 266lbs. 0.0oz. 120.004624ei; 37.1 BMI Method: General Appearance: No Apparent Distress, WD/WN, Chronically ill, Obese Eyes: Bilateral Eye Normal Inspection, Bilateral Eye PERRL HEENT: PERRL/EOMI, Normal ENT Inspection, Pharynx Normal Neck: Full Range of Motion, Normal Inspection, Non Tender, Supple, Carotid Bruit Respiratory: Chest Non Tender, Lungs Clear, Normal Breath Sounds, No Accessory Muscle Use, No Respiratory Distress Cardiovascular: Regular Rate, Rhythm, No Edema, No Gallop, No JVD, No Murmur, Normal Peripheral Pulses Gastrointestinal: Normal Bowel Sounds, No Organomegaly, No Pulsatile Mass, Non Tender, Soft Back: Decreased Range of Motion Extremity: Normal Capillary Refill, Normal Inspection, Normal Range of Motion, Non Tender, No Calf Tenderness, No Pedal Edema Neurologic/Psychiatric: Alert, Oriented x3, No Motor/Sensory Deficits, Normal Mood/Affect Skin: Normal Color, Warm/Dry Lymphatic: No Adenopathy Results Results/Procedures Labs Laboratory Tests 01/07/18 09:27 01/08/18 04:15 01/08/18 05:56 01/08/18 10:11 01/08/18 13:06 Patient resulted labs reviewed. Assessment/Plan Assessment and Plan Assess & Plan/Chief Complaint Assessment: Extensive spine surgery uncomplicated by Dr Roman POD # 1 Leukocytosis Metabolic acidosis s/p bicarb infusion ARF HTN Obesity Chronic lower extremity edema Suspected DERIC Plan: Catheter BM regimen Pain control Hold BP meds due to mild hypotension IVF Bicarb Diagnosis/Problems Diagnosis/Problems (1) S/P spinal surgery Status: Acute (2) Leukocytosis Status: Acute Qualifiers: Leukocytosis type: leukemoid reaction Qualified Codes: D72.823 - Leukemoid reaction (3) Metabolic acidosis Status: Acute (4) Renal failure Status: Acute Qualifiers: Renal failure chronicity: acute Acute renal failure type: unspecified Qualified Codes: N17.9 - Acute kidney failure, unspecified (5) Hyperkalemia Status: Acute (6) Hypertension Status: Chronic Qualifiers: Hypertension type: essential hypertension Qualified Codes: I10 - Essential (primary) hypertension (7) Edema Status: Chronic Qualifiers: Edema type: localized Qualified Codes: R60.0 - Localized edema (8) Obesity Status: Chronic Qualifiers: Obesity type: due to excess calories Obesity classification: adult class 2 (BMI 35 - 39.9) Serious obesity comorbidity presence: with serious comorbidity Body mass index: BMI 37.0-37.9 Qualified Codes: E66.01 - Morbid (severe) obesity due to excess calories; Z68.37 - Body mass index (bmi) 37.0- 37.9, adult AYANA GONZALES MED STUDENT 01/08/18 1107: HPI History of Present Illness: HPI/Chief Complaint CC: Scoliosis HPI: This is a 57 year old male who is obviously uncomfortable and in significant pain due to recovery from recent spinal surgery. He is alert and oriented and seems to have a positive outlook for his recovery. He complains of no symptoms other than pain from the surgery. He has not been using his inspirometer but states that he will today. Source: patient Home Medications & Allergies Home Medications Active Scripts Medications Dose Route/Sig Max Daily Dose Days Date Category Furosemide 20 Mg Tablet 20 Mg PO DAILY PRN 09/26/17 Reported Hydrocodon-Acetaminophn 10-325 (Hydrocodone/Acetaminophen) 1 Each Tablet 1 Each PO Q4H PRN 09/26/17 Reported Clonidine HCl 0.1 Mg Tablet 0.1 Mg PO TID 09/26/17 Reported Lisinopril 20 Mg Tablet 20 Mg PO DAILY 09/26/17 Reported Amlodipine Besylate 10 Mg Tablet 10 Mg PO DAILY 09/26/17 Reported Allergies Allergies: NKDA Past Mbwgtsc-Afkyky-Msjimf Hx Past Medical History Musculoskeletal: Arthritis, Back Injury, Scoliosis Family History Cardiovascular disease 19 FATHER Myocardial infarction 19 FATHER Review of Systems Constitutional: no symptoms reported EENTM: no symptoms reported Respiratory: no symptoms reported Cardiovascular: no symptoms reported Gastrointestinal: no symptoms reported Genitourinary: no symptoms reported Musculoskeletal: back pain Skin: no symptoms reported Psychiatric/Neurological: No Symptoms Reported Physical Exam Physical Exam General Appearance: No Apparent Distress, WD/WN Respiratory: Chest Non Tender, Lungs Clear, Normal Breath Sounds, No Accessory Muscle Use, No Respiratory Distress Cardiovascular: Regular Rate, Rhythm, No Edema, No Gallop, No JVD, No Murmur, Normal Peripheral Pulses Neurologic/Psychiatric: Alert, Oriented x3, No Motor/Sensory Deficits, Normal Mood/Affect Skin: Normal Color, Warm/Dry Assessment/Plan Assessment and Plan Assess & Plan/Chief Complaint Assessment: 1) Post spinal surgery pain Plan: 1) Monitor in ICU 2) Continue pain medications DANIEL FOSTER DO Jan 08, 2018 10:41 AYANA GONZALES MED STUDENT Jan 08, 2018 11:07
[2018-01-08] MEDS ORDERED: inSUlin (REGULAR) HUMAN 1 UNIT/0.01 ML (CHARGE PER UNIT) IV NR (10:45)
[2018-01-08] MEDS ORDERED: DEXTROSE 50% 50 ML (IMS) SYR IV NR (10:45)
[2018-01-08] MEDS ORDERED: SODIUM BICARB 8.4% 50 MEQ/50 ML (ABBOTT) SYR IV NR (10:45)
--- NOTE | 2018-01-08 11:04 | Occupational Therapy Eval ---
OT Evaluation-General/PLF Medical Diagnosis Admission Date Jan 07, 2018 at 08:44 Medical Diagnosis: T6 - Pelvis, AP Fusion Onset Date: Jan 07, 2018 Therapy Diagnosis Therapy Diagnosis: decr self care, decr funct mobility Height/Weight Height (Feet): 5 Height (Inches): 11.00 Weight (Pounds): 266 Weight (Ounces): 0.0 Precautions Precautions/Isolations: Fall Prevention, Standard Precautions Safety Interventions: None Weight Bear Status Clam shell brace on when up Referral Physician: Claude Christopher Referral Reason: Evaluation/Treatment Medical History Pertinent Medical History: HTN Additional Medical History L RAJAN, neck fusion, back surgery. Cardiac Social History Home: Multilevel Current Living Status: Friend Entry Into Home: Stairs With Railing Steps Into Home: 2 Steps Inside Home: 2 ADL-Prior Level of Function Functional [place] Measure 0=Not Assessed/NA 4=Minimal Assistance 1=Total Assistance 5=Supervision or Setup 2=Maximal Assistance 6=Modified [place] 3=Moderate Assistance 7=Complete [place] ADL PLOF Comments pt reported that he has been able to manage his basic ADLs except for putting on his socks and sometimes having difficulty stepping in/out of bathtub. He also does things at home and mows the yard. He still drives and works installing custom windows. Self Care Functional Cognition Functional Cognition: no problems DME/Equipment: Tub/Shower OT Current Status Subjective Pt seen in room, up in recliner, agreeable to OT. Reported pain and nursing checking on pain meds Appearance Alert, cooperative Current Glasses/Contacts: Yes Hand Dominance: Right Upper Extremity ROM Grossly WFL bilat Upper Extremity Sensation No problems per patient report Upper Extremity Strength Grossly 5/5 bilat ADL-Treatment ADL-Current P got up to EOB with min assist and transferred to recliner with CGA, FWW per PT eval. Reported he has been able to feed himself today. Functional [place] Measure 0=Not Assessed/NA 4=Minimal Assistance 1=Total Assistance 5=Supervision or Setup 2=Maximal Assistance 6=Modified [place] 3=Moderate Assistance 7=Complete IndependenceIRFPAI Quality Coding Scale 6 Independent with activity with or without an assistive device 5 Patient requires set up or clean up by helper. Patient completes activity by themselves 4 Supervision or touching assist (CGA). [place] provide cues , steadying assist 3 The helper provides less than half the effort to complete the activity 2 The helper provides more than half the effort to complete the activity 1 Dependent. The helper does all the effort to complete an activity 7 Patient refused to complete or attempt activity 9 The patient did not perform the activity before the current illness or injury 88 Not attempted due to Medical conditions or safety concerns Education OT Patient Education: Purpose of tx/functional activities, Rehab process Teaching Recipient: Patient Teaching Methods: Discussion Response to Teaching: Verbalize Understanding OT Litigation Associate Goals Litigation Associate Goals Time Frame: Jan 15, 2018 Eating (FIM): 6 Grooming(FIM): 6 Bathing(FIM): 5 Upper Body Dressing(FIM): 5 Lower Body Dressing(FIM): 5 Toileting(FIM): 5 Toilet/Commode Transfer(FIM): 5 Shower Transfer(FIM): 5 Additional Goals: 1-Demonstrate ADL Tasks, 2-Verbalize Understanding, 3- ImproveStrength/Dot 1=Demonstrate adherence to instructed precautions during ADL tasks. 2=Patient will verbalize/demonstrate understanding of assistive devices/ modifications for ADL. 3=Patient will improve strength/tolerance for activity to enable patient to perform ADL's. OT Education/Plan Problem List/Assessment Assessment: Decreased Activ Tolerance, Dependent Transfers, Impaired Self-Care Skills Pt would benefit from skilled OT to increase his independence in basic self care to allow him to safely return home Discharge Recommendations Plan/Recommendations: Continue POC Therapy D/C Recommendations: Home w/ Family Support Treatment Plan/Plan of Care Treatment,Training & Education: Yes Patient would benefit from OT for education, treatment and training to promote independence in ADL's, mobility, safety and/or upper extremity function for ADL' s. Plan of Care: ADL Retraining, Functional Mobility, UE Funct Exercise/Act Treatment Duration: Jan 15, 2018 Frequency: 5 times per week Estimated Hrs Per Day: .5 hour per day Agreement: Yes Rehab Potential: Good Time/GCodes Start Time: 10:35 Stop Time: 10:50 Total Time Billed (hr/min): 15 Billed Treatment Time visit, 15 minutes evaluation low intensity GOLDIE VINSON OT Jan 08, 2018 11:04
[2018-01-08] MEDS ORDERED: NS IV 1000 ML 1,000 ML IV ONE (11:30)
--- NOTE | 2018-01-08 13:07 | Diagnostic Imaging Report ---
Indication: PICC line placement Portable chest 12:53 PM Left upper extremity PICC line tip projects over the SVC. Heart size and pulmonary vascularity are normal. Lungs are clear. There are no effusions or pneumothoraces. The patient has Zari rods in the thoracolumbar spine. Impression: No acute abnormalities in the chest. Dictated by: Dictated on workstation # [id number]
[2018-01-08 13:31] LABS: CALCIUM 7.6 MG/DL (8.5-10.1); CREATININE SERUM 1.83 MG/DL (0.60-1.30); POTASSIUM 4.3 MMOL/L (3.6-5.0)
--- NOTE | 2018-01-08 13:46 | Physical Therapy Daily Note ---
PT Daily Note-Current Subjective Pt awake in bed when PT arrived. Pt resists getting up for a walk with PT initially before agreeing to get up. Pain Numeric Pain Scale: 10-Worst Possible Pain Location: Medial, Upper, Lower Location Body Site: Back Pain Description: Acute Comment: with meds issued Mental Status Patient Orientation: Mumbles, Normal For Age Attachments: Faith Catheter, IV Transfers Functional [place] Measure 0=Not Assessed/NA 4=Minimal Assistance 1=Total Assistance 5=Supervision or Setup 2=Maximal Assistance 6=Modified [place] 3=Moderate Assistance 7=Complete IndependenceIRFPAI Quality Coding Scale 6 Independent with activity with or without an assistive device 5 Patient requires set up or clean up by helper. Patient completes activity by themselves 4 Supervision or touching assist (CGA). Joanna provide cues , steadying assist 3 The helper provides less than half the effort to complete the activity 2 The helper provides more than half the effort to complete the activity 1 Dependent. The helper does all the effort to complete an activity 7 Patient refused to complete or attempt activity 9 The patient did not perform the activity before the current illness or injury 88 Not attempted due to Medical conditions or safety concerns Transfers (B, C, W/C) (FIM): 4 Scootin Rollin Supine to/from Sit: 5 Sit to/from Stand: 4 Weight Bearing Right Lower Extremity: Right Weight Bearing/Tolerated Left Lower Extremity: Left Weight Bearing/Tolerated Gait Training Gait (FIM): 2 Distance (FIM): 0=681-57 ft (100) Distance: 100' Gait Level of Assist: 4 Gait Persons Needed: 1 Gait Assistive Device: FWW Assessment Patient was able to ambulate 100' with a FWW requiring CGA. Patient did not show signs of fatigue but reported feeling dizzy and nauseous while walking. Patient needed cueing when getting back into bed to return to supine. Pt will continue to benefit from ambulation to maintain current strength and prevent patient from developing pneumonia. PT Drive Away Driver Goals Drive Away Driver Goals PT Usp Goals Time Frame: Jan 15, 2018 Transfers (B,C,W/C) (FIM): 6 Gait (FIM): 6 Gait distance (FIM): 3=150 ft Distance: 150' Gait Level of Assist: 6 Gait Assistive Device: FWW PT Plan Problem List Problem List: Activity Tolerance, Functional Strength, Safety, Balance, Gait, Transfer, Bed Mobility Treatment/Plan Treatment Plan: Continue Plan of Care Treatment Plan: Bed Mobility, Education, Functional Strength, Gait, Safety, Therapeutic Exercise, Transfers Treatment Duration: Jan 15, 2018 Frequency: 11 times per week Estimated Hrs Per Day: .5 hour per day Patient and/or Family Agrees t: Yes Time/GCodes Time In: 1312 Time Out: 1330 Total Billed Treatment Time: 18 Total Billed Treatment 1 visit FA 18' CAMILO GUAMAN PT Jan 08, 2018 13:46
[2018-01-08] MEDS ORDERED: FLU QUADRIvalent (5+ YOA) 2018-2019 (AFLURIA) 0.5 ML IM ONE (19:15)
[2018-01-08] MEDS: POLYETHYLENE GLYCOL 17 GM (MIRALAX) PACK PO SCH (20:04)
[2018-01-09] VITALS (24 sets, daily range): BP systolic 98–167; BP diastolic 61–99
[2018-01-09] MEDS: fentaNYL INJECTION 100 MCG/2 ML AMP IV PRN ×2 (01:10→06:16)
[2018-01-09] MEDS: oxyCODONE/APAP 10/325MG (PERCOCET 10) TABLET PO PRN ×4 (01:10→17:48)
[2018-01-09] MEDS: NS IV 1000 ML 1,000 ML IV SCH ×3 (02:54→17:49)
[2018-01-09 03:17] LABS: BASOPHILS % (AUTO) 0 % (0-10); EOSINOPHILS % (AUTO) 0 % (0-10); HEMATOCRIT 28 % (40-54); HEMOGLOBIN 9.4 G/DL (13.3-17.7); LYMPHOCYTES # (AUTO) 0.9 X 10^3 (1.0-4.0); LYMPHOCYTES % (AUTO) 5 % (12-44); MEAN CORPUSCULAR HEMOGLOBIN 29 PG (25-34); MEAN CORPUSCULAR HGB CONC 33 G/DL (32-36); MEAN CORPUSCULAR VOLUME 89 FL (80-99); MEAN PLATELET VOLUME 8.5 FL (7.4-10.4); MONOCYTES # (AUTO) 1.6 X 10^3 (0.0-1.0); MONOCYTES % (AUTO) 9 % (0-12); NEUTROPHILS # (AUTO) 16.6 X 10^3 (1.8-7.8); NEUTROPHILS % (AUTO) 87 % (42-75); PLATELET COUNT 327 10^3/uL (130-400); RED CELL DISTRIBUTION WIDTH 14.1 % (10.0-14.5); WHITE BLOOD COUNT 19.1 10^3/uL (4.3-11.0)
[2018-01-09 03:38] LABS: CALCIUM 7.8 MG/DL (8.5-10.1); CREATININE SERUM 1.27 MG/DL (0.60-1.30); MAGNESIUM 1.7 MG/DL (1.8-2.4); PHOSPHORUS 2.5 MG/DL (2.3-4.7); POTASSIUM 4.2 MMOL/L (3.6-5.0)
[2018-01-09] MEDS: MAGNESIUM 1 GM/100 ML IVPB 100 ML IV SCH ×6 (05:13→20:21)
[2018-01-09] MEDS: POTASSIUM CL 10MEQ/50ML IVPB 50 ML IV SCH (05:13)
[2018-01-09] MEDS: KCL 20 MEQ TAB (K-DUR) PO SCH (05:14)
--- NOTE | 2018-01-09 05:41 | Pulmonary Progress Note ---
Subjective Time Seen by a Provider: 05:41 Subjective/Events-last exam PT appears improved. complains of pain. Sepsis Event Evaluation Height, Weight, BMI Height: 5'11.00" Weight: 266lbs. 0.0oz. [id number]; 37.1 BMI Method: Focused Exam Lactate Level 01/08/18 10:11: Lactic Acid Level 4.84*H 01/08/18 12:20: Lactic Acid Level 5.00*H 01/08/18 19:48: Lactic Acid Level 1.77 Exam Exam Vital Signs Date Time Temp Pulse Resp B/P (MAP) Pulse Ox O2 Delivery O2 Flow Rate FiO2 01/09/18 05:00 116 16 145/75 (98) 98 Nasal Cannula 3.00 01/09/18 04:00 98.3 01/09/18 04:00 116 18 138/77 (97) 96 Nasal Cannula 3.00 01/09/18 04:00 Nasal Cannula 3.00 01/09/18 03:00 128 20 137/77 (97) 95 Nasal Cannula 3.00 01/09/18 02:00 124 19 143/69 (93) 95 Nasal Cannula 3.00 01/09/18 01:00 128 18 167/87 (113) 94 Nasal Cannula 3.00 01/09/18 01:00 128 01/09/18 00:00 Nasal Cannula 3.00 01/09/18 00:00 97.0 01/09/18 00:00 128 13 143/78 (99) 95 Nasal Cannula 3.00 01/08/18 23:00 109 13 177/82 (113) 96 Nasal Cannula 3.00 01/08/18 22:00 109 14 157/95 (115) 96 Nasal Cannula 3.00 01/08/18 21:00 Nasal Cannula 3.00 01/08/18 21:00 120 22 164/87 (112) 94 Nasal Cannula 3.00 01/08/18 20:00 96.7 01/08/18 20:00 112 14 163/80 (107) 96 Nasal Cannula 3.00 01/08/18 19:00 110 01/08/18 19:00 110 12 175/108 (130) 96 Nasal Cannula 3.00 01/08/18 17:00 104 20 111/77 (88) 95 Nasal Cannula 3.00 01/08/18 16:00 104 10 150/80 (103) 96 Nasal Cannula 3.00 01/08/18 15:30 Nasal Cannula 3.00 01/08/18 15:27 96.5 01/08/18 15:00 101 9 96 Nasal Cannula 3.00 01/08/18 14:26 96 Nasal Cannula 3.00 01/08/18 14:00 110 25 94 Nasal Cannula 3.00 01/08/18 13:00 105 01/08/18 13:00 105 11 142/87 (105) 96 Nasal Cannula 3.00 01/08/18 12:00 110 15 124/79 (94) 95 Nasal Cannula 3.00 01/08/18 11:30 Nasal Cannula 3.00 01/08/18 11:30 96.7 01/08/18 11:00 105 7 104/59 (74) Nasal Cannula 3.00 01/08/18 10:00 112 11 117/70 (86) Nasal Cannula 3.00 01/08/18 09:00 108 141/99 (113) Nasal Cannula 3.00 01/08/18 08:00 98.1 01/08/18 08:00 114 10 107/71 (83) Nasal Cannula 3.00 01/08/18 08:00 Nasal Cannula 3.00 01/08/18 07:00 115 9 95/72 (80) Nasal Cannula 3.00 01/08/18 07:00 115 01/08/18 06:00 112 10 111/67 (82) 94 Nasal Cannula 3.00 I & O 01/09/18 07:00 Intake Total 6220 ml Output Total 1175 ml Balance 5045 ml Height & Weight Height: 5'11.00" Weight: 266lbs. 0.0oz. 120.670266kq; 37.1 BMI Method: General Appearance: No Apparent Distress, WD/WN, Chronically ill, Obese HEENT: PERRL/EOMI, Normal ENT Inspection, Pharynx Normal Neck: Full Range of Motion, Normal Inspection, Non Tender, Supple, Carotid Bruit Respiratory: Chest Non Tender, Lungs Clear, Normal Breath Sounds, No Accessory Muscle Use, No Respiratory Distress Cardiovascular: Regular Rate, Rhythm, No Edema, No Gallop, No JVD, No Murmur, Normal Peripheral Pulses Gastrointestinal: non tender, soft Extremity: Normal Capillary Refill, Normal Inspection, Normal Range of Motion, Non Tender, No Calf Tenderness, No Pedal Edema Neurologic/Psychiatric: Alert, Oriented x3, No Motor/Sensory Deficits, Normal Mood/Affect Skin: Normal Color, Warm/Dry Lymphatic: No Adenopathy Results Lab Laboratory Tests 01/07/18 09:27 01/08/18 04:15 01/08/18 05:56 01/08/18 10:11 01/08/18 13:06 01/09/18 03:00 Assessment/Plan Assessment/Plan Scoliosis with Lumbar stenosis s/p surgery Acute renal failure with hyperkalemia -Continue IVF at 150cc/hr NS Metabolic acidosis -- improving -IVF Sinus tach with HTN --Restart home clonidine -IVF -restart home meds Hx of HTN BRIGHT RIZO DO Jan 09, 2018 05:41
--- NOTE | 2018-01-09 05:47 | Progress Note (SOAP) ---
Subjective Date Seen by a Provider: Jan 09, 2018 Time Seen by a Provider: 05:42 Subjective/Events-last exam POD #2, s/p L4-S1 ALIF, L1-4 DLIF, T6-S2 PSF with L1-3 laminectomy Complains of back pain Denies abdominal pain No flatus Review of Systems General: No Chills Pulmonary: No Cough Cardiovascular: No: Chest Pain Gastrointestinal: No: Vomiting, Abdominal Pain Musculoskeletal: back pain; No: leg pain Neurological: No: Weakness, Numbness, Confusion Focused Exam Lactate Level 01/08/18 10:11: Lactic Acid Level 4.84*H 01/08/18 12:20: Lactic Acid Level 5.00*H 01/08/18 19:48: Lactic Acid Level 1.77 Objective Exam Vital Signs Date Time Temp Pulse Resp B/P (MAP) Pulse Ox O2 Delivery O2 Flow Rate FiO2 01/09/18 05:00 116 16 145/75 (98) 98 Nasal Cannula 3.00 01/09/18 04:00 98.3 01/09/18 04:00 116 18 138/77 (97) 96 Nasal Cannula 3.00 01/09/18 04:00 Nasal Cannula 3.00 01/09/18 03:00 128 20 137/77 (97) 95 Nasal Cannula 3.00 01/09/18 02:00 124 19 143/69 (93) 95 Nasal Cannula 3.00 01/09/18 01:00 128 18 167/87 (113) 94 Nasal Cannula 3.00 01/09/18 01:00 128 01/09/18 00:00 Nasal Cannula 3.00 01/09/18 00:00 97.0 01/09/18 00:00 128 13 143/78 (99) 95 Nasal Cannula 3.00 01/08/18 23:00 109 13 177/82 (113) 96 Nasal Cannula 3.00 01/08/18 22:00 109 14 157/95 (115) 96 Nasal Cannula 3.00 01/08/18 21:00 Nasal Cannula 3.00 01/08/18 21:00 120 22 164/87 (112) 94 Nasal Cannula 3.00 01/08/18 20:00 96.7 01/08/18 20:00 112 14 163/80 (107) 96 Nasal Cannula 3.00 01/08/18 19:00 110 01/08/18 19:00 110 12 175/108 (130) 96 Nasal Cannula 3.00 01/08/18 17:00 104 20 111/77 (88) 95 Nasal Cannula 3.00 01/08/18 16:00 104 10 150/80 (103) 96 Nasal Cannula 3.00 01/08/18 15:30 Nasal Cannula 3.00 01/08/18 15:27 96.5 01/08/18 15:00 101 9 96 Nasal Cannula 3.00 01/08/18 14:26 96 Nasal Cannula 3.00 01/08/18 14:00 110 25 94 Nasal Cannula 3.00 01/08/18 13:00 105 01/08/18 13:00 105 11 142/87 (105) 96 Nasal Cannula 3.00 01/08/18 12:00 110 15 124/79 (94) 95 Nasal Cannula 3.00 01/08/18 11:30 Nasal Cannula 3.00 01/08/18 11:30 96.7 01/08/18 11:00 105 7 104/59 (74) Nasal Cannula 3.00 01/08/18 10:00 112 11 117/70 (86) Nasal Cannula 3.00 01/08/18 09:00 108 141/99 (113) Nasal Cannula 3.00 01/08/18 08:00 98.1 01/08/18 08:00 114 10 107/71 (83) Nasal Cannula 3.00 01/08/18 08:00 Nasal Cannula 3.00 01/08/18 07:00 115 9 95/72 (80) Nasal Cannula 3.00 01/08/18 07:00 115 01/08/18 06:00 112 10 111/67 (82) 94 Nasal Cannula 3.00 I & O 01/09/18 07:00 Intake Total 6220 ml Output Total 1175 ml Balance 5045 ml Capillary Refill : General Appearance: No Apparent Distress Neck: Non Tender Respiratory: No Accessory Muscle Use, No Respiratory Distress Cardiovascular: Normal Peripheral Pulses Gastrointestinal: non tender, other (No [place]'s or Grimm-Henning's ) Extremity: Non Tender, No Calf Tenderness Neurologic/Psychiatric: Alert, Oriented x3, No Motor/Sensory Deficits, Normal Mood/Affect, stain wiper II-XII Norm as Tested Skin: Normal Color, Warm/Dry Results Lab Laboratory Tests 01/08/18 05:56: White Blood Count 25.1H, Red Blood Count 4.42, Hemoglobin 12.5L, Hematocrit 40, Mean Corpuscular Volume 89, Mean Corpuscular Hemoglobin 28, Mean Corpuscular Hemoglobin Concent 32, Red Cell Distribution Width 14.0, Platelet Count 465H, Mean Platelet Volume 8.8 01/08/18 10:11: Sodium Level 140, Potassium Level 5.3H, Chloride Level 105, Carbon Dioxide Level 20L, Anion Gap 15H, Blood Urea Nitrogen 31H, Creatinine 2.19H, Estimat Glomerular Filtration Rate 31, BUN/Creatinine Ratio 14, Glucose Level 181H, Lactic Acid Level 4.84*H, Calcium Level 8.1L, Magnesium Level 2.0 01/08/18 12:20: Lactic Acid Level 5.00*H 01/08/18 13:06: Sodium Level 140, Potassium Level 4.3, Chloride Level 106, Carbon Dioxide Level 20L, Anion Gap 14, Blood Urea Nitrogen 31H, Creatinine 1.83H, Estimat Glomerular Filtration Rate 39, BUN/Creatinine Ratio 17, Glucose Level 176H, Calcium Level 7.6L 01/08/18 19:48: Lactic Acid Level 1.77 01/09/18 03:00: White Blood Count 19.1H, Red Blood Count 3.20L, Hemoglobin 9.4#L, Hematocrit 28L , Mean Corpuscular Volume 89, Mean Corpuscular Hemoglobin 29, Mean Corpuscular Hemoglobin Concent 33, Red Cell Distribution Width 14.1, Platelet Count 327, Mean Platelet Volume 8.5, Neutrophils (%) (Auto) 87H, Lymphocytes (%) (Auto) 5L , Monocytes (%) (Auto) 9, Eosinophils (%) (Auto) 0, Basophils (%) (Auto) 0, Neutrophils # (Auto) 16.6H, Lymphocytes # (Auto) 0.9L, Monocytes # (Auto) 1.6H, Eosinophils # (Auto) 0.0, Basophils # (Auto) 0.0, Sodium Level 137, Potassium Level 4.2, Chloride Level 105, Carbon Dioxide Level 24, Anion Gap 8, Blood Urea Nitrogen 31H, Creatinine 1.27, Estimat Glomerular Filtration Rate 59, BUN/ Creatinine Ratio 24, Glucose Level 129H, Calcium Level 7.8L, Phosphorus Level 2.5, Magnesium Level 1.7L Microbiology 01/07/18 MRSA Screen - Final, Complete MRSA not isolated Assessment/Plan Assessment/Plan Assess & Plan/Chief Complaint Lumbar stenosis with radiculopathy Thoracolumbar scoliosis s/p L4-S1 ALIF, L1-4 DLIF, T6-S2 PSF with L1-3 laminectomy Volume depletion Tachycardia Continue fluid replacement Resume Clonidine LUIS JOHNSON Jan 09, 2018 05:47
[2018-01-09] MEDS: MULTIVIT W/MINERALS TAB (THERAGRAN M) PO SCH (08:12)
[2018-01-09] MEDS: SENNOSIDES 8.6 MG (SENOKOT) TAB PO SCH ×2 (08:13→21:03)
[2018-01-09] MEDS: oxyCODONE ER 20 MG (OxyCONTIN CR) TAB PO SCH ×3 (08:13→21:03)
[2018-01-09] MEDS: DIAZEPAM 5 MG (VALIUM) TABLET PO PRN ×2 (08:13→21:03)
[2018-01-09] MEDS: cloNIDine 0.1 MG (CATAPRES) TAB PO SCH ×3 (08:13→21:02)
[2018-01-09] MEDS: PANTOPRAZOLE 40 MG (PROTONIX) TAB PO SCH (08:13)
[2018-01-09] MEDS: DOCUSATE SODIUM 100 MG (COLACE) CAP PO SCH ×2 (08:13→21:02)
--- NOTE | 2018-01-09 11:01 | Progress Note-Hospitalist ---
Subjective HPI/CC On Admission Date Seen by Provider: Jan 09, 2018 Time Seen by Provider: 10:30 CC: s/p spine surgery uncomplicated by Dr Roman POD # 1 HPI: This is a 57yoWM clinic patient of Dr Campuzano in [facility] who presents after an extensive spine surgery per Dr Roman. He has been monitored overnight in the ICU and has done well. Pt reports pain is moderate to severe and overall doing ok as expected. Checked meds and labs. Patient did have elevated creatinine and metabolic acidosis so Dr Corley has ordered IVF with bicarb. Subjective/Events-last exam Patient very sore today Maintained in ICU for another day due to the complexity of the spine surgery and the elevated lactic acid that required IV fluid resuscitation with bicarbonate drip Using incentive spirometer Catheter still in place No bowel movement yet but passing gas Checked meds and labs Has no other concerns Review of Systems Musculoskeletal: back pain Focused Exam Lactate Level 01/08/18 10:11: Lactic Acid Level 4.84*H 01/08/18 12:20: Lactic Acid Level 5.00*H 01/08/18 19:48: Lactic Acid Level 1.77 Objective Exam Vital Signs Vital Signs Date Time Temp Pulse Resp B/P (MAP) Pulse Ox O2 Delivery O2 Flow Rate FiO2 01/09/18 11:00 116 32 149/86 (107) 99 Nasal Cannula 3.00 01/09/18 04:00 98.3 Capillary Refill : General Appearance: No Apparent Distress, WD/WN, Obese Respiratory: Chest Non Tender, Lungs Clear, Normal Breath Sounds, No Accessory Muscle Use, No Respiratory Distress Cardiovascular: Regular Rate, Rhythm, No Edema, No Gallop, No JVD, No Murmur, Normal Peripheral Pulses Back: Decreased Range of Motion Neurologic/Psychiatric: Alert, Oriented x3, No Motor/Sensory Deficits, Normal Mood/Affect Skin: Normal Color, Warm/Dry Results/Procedures Lab Laboratory Tests 01/08/18 13:06 01/09/18 03:00 Patient resulted labs reviewed. Assessment/Plan Assessment and Plan Assess & Plan/Chief Complaint Assessment: Extensive spine surgery uncomplicated by Dr Roman POD # 2 Leukocytosis improved Metabolic acidosis s/p bicarb infusion now resolved ARF now resolved I suspect CRI mild HTN Obesity Chronic lower extremity edema Suspected DERIC Plan: Catheter BM regimen Pain control Hold BP meds due to mild hypotension IVF decrease Add back in Norvasc home med Diagnosis/Problems Diagnosis/Problems (1) S/P spinal surgery Status: Acute (2) Leukocytosis Status: Acute Qualifiers: Leukocytosis type: leukemoid reaction Qualified Codes: D72.823 - Leukemoid reaction (3) Metabolic acidosis Status: Resolved (4) Renal failure Status: Resolved Qualifiers: Renal failure chronicity: acute Acute renal failure type: unspecified Qualified Codes: N17.9 - Acute kidney failure, unspecified (5) Hyperkalemia Status: Resolved (6) Hypertension Status: Chronic Qualifiers: Hypertension type: essential hypertension Qualified Codes: I10 - Essential (primary) hypertension (7) Edema Status: Chronic Qualifiers: Edema type: localized Qualified Codes: R60.0 - Localized edema (8) Obesity Status: Chronic Qualifiers: Obesity type: due to excess calories Obesity classification: adult class 2 (BMI 35 - 39.9) Serious obesity comorbidity presence: with serious comorbidity Body mass index: BMI 37.0-37.9 Qualified Codes: E66.01 - Morbid (severe) obesity due to excess calories; Z68.37 - Body mass index (bmi) 37.0- 37.9, adult DANIEL FOSTER DO Jan 09, 2018 11:01
--- NOTE | 2018-01-09 11:44 | Physical Therapy Daily Note ---
PT Daily Note-Current Subjective Pt asleep in bed when PT arrived. Pt was woken by PT and he agreed to PT after encouragement. Pain Numeric Pain Scale: 5-Moderate Pain Location: Posterior Location Body Site: Back Pain Description: Acute Appearance Pt sitting upright in chair with phone, call light and belongings when PT left room. Mental Status Patient Orientation: Confused, Mumbles Attachments: Oxygen, Faith Catheter, IV TLSO Transfers Functional [place] Measure 0=Not Assessed/NA 4=Minimal Assistance 1=Total Assistance 5=Supervision or Setup 2=Maximal Assistance 6=Modified [place] 3=Moderate Assistance 7=Complete IndependenceIRFPAI Quality Coding Scale 6 Independent with activity with or without an assistive device 5 Patient requires set up or clean up by helper. Patient completes activity by themselves 4 Supervision or touching assist (CGA). [place] provide cues , steadying assist 3 The helper provides less than half the effort to complete the activity 2 The helper provides more than half the effort to complete the activity 1 Dependent. The helper does all the effort to complete an activity 7 Patient refused to complete or attempt activity 9 The patient did not perform the activity before the current illness or injury 88 Not attempted due to Medical conditions or safety concerns Transfers (B, C, W/C) (FIM): 3 Scootin Rollin Supine to/from Sit: 3 Sit to/from Stand: 5 Weight Bearing Right Lower Extremity: Right Weight Bearing/Tolerated Left Lower Extremity: Left Weight Bearing/Tolerated Gait Training Gait (FIM): 1 Distance (FIM): 1=up to 49 ft Distance: 25' Gait Level of Assist: 4 Gait Persons Needed: 1 Gait Assistive Device: FWW Treatments bed mobility and transfers, ambulation Assessment Current Status: Poor Progress Pt was able to ambulate for 25' with a FWW requiring CGA. Patient reported dizzy like symptoms that persisted throughout ambulation. Patient will continue to benefit from therapy to maintain current strength for daily functional demands. PT Correction Goals Correction Goals PT Alumni Secretary Goals Time Frame: Jan 15, 2018 Transfers (B,C,W/C) (FIM): 6 Gait (FIM): 6 Gait distance (FIM): 3=150 ft Distance: 150' Gait Level of Assist: 6 Gait Assistive Device: FWW PT Plan Problem List Problem List: Activity Tolerance, Functional Strength, Safety, Balance, Gait, Transfer, Bed Mobility, ROM Treatment/Plan Treatment Plan: Continue Plan of Care Treatment Plan: Bed Mobility, Education, Functional Activity Dot, Functional Strength, Gait, Safety, Therapeutic Exercise, Transfers Treatment Duration: Jan 15, 2018 Frequency: 11 times per week Estimated Hrs Per Day: .5 hour per day Patient and/or Family Agrees t: Yes Safety Risks/Education Patient Education: Gait Training, Transfer Techniques, Correct Positioning, Reviewed Don/Doff Brace, Safety Issues Teaching Recipient: Patient Teaching Methods: Demonstration, Discussion Response to Teaching: Reinforcement Needed Time/GCodes Time In: 1100 Time Out: 1118 Total Billed Treatment Time: 18 Total Billed Treatment 1 visit GT- 18' VIRGINIA MAYER PT Jan 09, 2018 11:44
[2018-01-09] MEDS ORDERED: amLODIPine 5 MG (NORVASC) TAB PO NR (11:45)
--- NOTE | 2018-01-09 14:08 | Occupational Ther Daily Note ---
OT Current Status-Daily Note Subjective Pt seen in room, up in bed, reluctantly agreeable to OT. Just getting pain meds. Mental Status/Objective Functional [place] Measure 0=Not Assessed/NA 4=Minimal Assistance 1=Total Assistance 5=Supervision or Setup 2=Maximal Assistance 6=Modified [place] 3=Moderate Assistance 7=Complete [place] Other Treatment Pt had difficulty reaching forward (up to ceiling), supine in bed. Tending to be protective of UE movement. Able to do 10 reps with increasing ease. Also did 10 reps reaching over head (shoulder flex), each arm done separately. Unable to clasp hands together to do sh flex due to back discomfort. Pt encouraged to do these two ex on his own to increase functional use of UEs for transfers and ADLs. Pt was given a couple drinks while in bed and had a little difficulty clearing them so head of bed elevated and he was able to clear it. Nursing notified. Pt left up in bed, all needs met. Education OT Patient Education: Exercise program, Purpose of tx/functional activities Teaching Recipient: Patient Teaching Methods: Demonstration, Discussion Response to Teaching: Verbalize Understanding, Return Demonstration OT Short Term Goals Short Term Goals 1=Demonstrate adherence to instructed precautions during ADL tasks. 2=Patient will verbalize/demonstrate understanding of assistive devices/ modifications for ADL. 3=Patient will improve strength/tolerance for activity to enable patient to perform ADL's. OT Community Development Planner Goals Usp Goals Time Frame: Jan 15, 2018 Eating (FIM): 6 Grooming(FIM): 6 Bathing(FIM): 5 Upper Body Dressing(FIM): 5 Lower Body Dressing(FIM): 5 Toileting(FIM): 5 Toilet/Commode Transfer(FIM): 5 Shower Transfer(FIM): 5 Additional Goals: 1-Demonstrate ADL Tasks, 2-Verbalize Understanding, 3- ImproveStrength/Dot 1=Demonstrate adherence to instructed precautions during ADL tasks. 2=Patient will verbalize/demonstrate understanding of assistive devices/ modifications for ADL. 3=Patient will improve strength/tolerance for activity to enable patient to perform ADL's. OT Education/Plan Problem List/Assessment Pt would benefit from skilled OT to increase his independence in basic self care to allow him to safely return home Discharge Recommendations Plan/Recommendations: Continue POC Treatment Plan/Plan of Care Patient would benefit from OT for education, treatment and training to promote independence in ADL's, mobility, safety and/or upper extremity function for ADL' s. Plan of Care: ADL Retraining, Functional Mobility, UE Funct Exercise/Act Treatment Duration: Jan 15, 2018 Frequency: 5 times per week Estimated Hrs Per Day: .5 hour per day Agreement: Yes Rehab Potential: Good Time/GCodes Start Time: 13:40 Stop Time: 13:50 Total Time Billed (hr/min): 10 Billed Treatment Time visit, 10 minutes exercise GOLDIE VINSON OT Jan 09, 2018 14:07
--- NOTE | 2018-01-09 15:56 | Physical Therapy Daily Note ---
PT Daily Note-Current Subjective Pts nurse informs this HEDGE TRIMMER that pt. has struggled with pain a great deal today. States pt. sat up after his morning PT for a few hours and did well but while getting back in bed pt. had a great deal of pain and has finally gotten a handle on that and she doesnt want him to get in the pain cycle again. Pt. hesitant to participate and states he will participate in supine bed exercises and try log rolling but not sure pain will allow him to. Pt. c/o pain at 9/10 with attempt to roll toward right with mod to max assist and then declined rolling to left Pain Numeric Pain Scale: 9 Location: Medial Location Body Site: Back Pain Description: Stabbing Mental Status Patient Orientation: Normal For Age Attachments: Faith Catheter, IV Transfers Functional [place] Measure 0=Not Assessed/NA 4=Minimal Assistance 1=Total Assistance 5=Supervision or Setup 2=Maximal Assistance 6=Modified [place] 3=Moderate Assistance 7=Complete IndependenceIRFPAI Quality Coding Scale 6 Independent with activity with or without an assistive device 5 Patient requires set up or clean up by helper. Patient completes activity by themselves 4 Supervision or touching assist (CGA). [place] provide cues , steadying assist 3 The helper provides less than half the effort to complete the activity 2 The helper provides more than half the effort to complete the activity 1 Dependent. The helper does all the effort to complete an activity 7 Patient refused to complete or attempt activity 9 The patient did not perform the activity before the current illness or injury 88 Not attempted due to Medical conditions or safety concerns Rollin pt. was assisted with partial rolling to the right using bed pad and assist both sides, this was with poor tolerance Weight Bearing Right Lower Extremity: Right Weight Bearing/Tolerated Left Lower Extremity: Left Weight Bearing/Tolerated Exercises Supine Ex: Ankle pumps, Quad Set, Rolling (see above), Glut sets, Heel Slides, Hip abd/add (assist) Supine Reps: 15 Assessment Current Status: Fair Progress pain limits participation PT Alf Goals Alf Goals PT Alf Goals Time Frame: Jan 15, 2018 Transfers (B,C,W/C) (FIM): 6 Rollin Gait (FIM): 6 Gait distance (FIM): 3=150 ft Distance: 150' Gait Level of Assist: 6 Gait Assistive Device: FWW PT Plan Treatment/Plan Treatment Plan: Continue Plan of Care Treatment Plan: Bed Mobility, Education, Functional Activity Dot, Functional Strength, Gait, Safety, Therapeutic Exercise, Transfers Treatment Duration: Jan 15, 2018 Frequency: 11 times per week Estimated Hrs Per Day: .5 hour per day Patient and/or Family Agrees t: Yes Safety Risks/Education Patient Education: Transfer Techniques (rolling), Correct Positioning, Disease Process Teaching Recipient: Patient Response to Teaching: Verbalize Understanding, Reinforcement Needed Time/GCodes Time In: 1535 Time Out: 1558 Total Billed Treatment Time: 23 Total Billed Treatment 1,EX15,FA8 G Codes Necessary: TRINO Abdi HEDGE TRIMMER Jan 09, 2018 15:56
[2018-01-09 16:03] LABS: BUN/CREATININE RATIO 27; CALCIUM 6.5 MG/DL (8.5-10.1); CARBON DIOXIDE 21 MMOL/L (21-32); CHLORIDE 113 MMOL/L (98-107); CREATININE SERUM 0.74 MG/DL (0.60-1.30); GFR ESTIMATED > 60; GLUCOSE 106 MG/DL (70-105); MAGNESIUM 1.6 MG/DL (1.8-2.4); POTASSIUM 3.4 MMOL/L (3.6-5.0); SODIUM 139 MMOL/L (135-145)
[2018-01-09] MEDS ORDERED: POTASSIUM PHOSPHATE INJ 30 MM in NS (IVPB) 250 ML IV ONE (17:30)
[2018-01-09] MEDS: POLYETHYLENE GLYCOL 17 GM (MIRALAX) PACK PO SCH (21:02)
[2018-01-10] VITALS (15 sets, daily range): BP systolic 115–139; BP diastolic 70–92
[2018-01-10] MEDS: oxyCODONE/APAP 10/325MG (PERCOCET 10) TABLET PO PRN (04:14)
[2018-01-10 04:19] LABS: BASOPHILS % (AUTO) 0 % (0-10); EOSINOPHILS # (AUTO) 0.1 10^3/uL (0.0-0.3); EOSINOPHILS % (AUTO) 1 % (0-10); HEMATOCRIT 26 % (40-54); HEMOGLOBIN 8.3 G/DL (13.3-17.7); LYMPHOCYTES # (AUTO) 0.8 X 10^3 (1.0-4.0); LYMPHOCYTES % (AUTO) 6 % (12-44); MEAN CORPUSCULAR HEMOGLOBIN 29 PG (25-34); MEAN CORPUSCULAR HGB CONC 32 G/DL (32-36); MEAN CORPUSCULAR VOLUME 90 FL (80-99); MEAN PLATELET VOLUME 8.3 FL (7.4-10.4); MONOCYTES # (AUTO) 1.1 X 10^3 (0.0-1.0); MONOCYTES % (AUTO) 8 % (0-12); NEUTROPHILS # (AUTO) 11.7 X 10^3 (1.8-7.8); NEUTROPHILS % (AUTO) 85 % (42-75); PLATELET COUNT 299 10^3/uL (130-400); RED CELL DISTRIBUTION WIDTH 14.4 % (10.0-14.5); WHITE BLOOD COUNT 13.7 10^3/uL (4.3-11.0)
[2018-01-10 04:34] LABS: BUN/CREATININE RATIO 20; CALCIUM 8.2 MG/DL (8.5-10.1); CARBON DIOXIDE 21 MMOL/L (21-32); CHLORIDE 106 MMOL/L (98-107); CREATININE SERUM 0.88 MG/DL (0.60-1.30); GFR ESTIMATED > 60; GLUCOSE 109 MG/DL (70-105); MAGNESIUM 2.7 MG/DL (1.8-2.4); PHOSPHORUS 1.6 MG/DL (2.3-4.7); POTASSIUM 4.2 MMOL/L (3.6-5.0); SODIUM 137 MMOL/L (135-145)
--- NOTE | 2018-01-10 05:29 | Pulmonary Progress Note ---
Subjective Time Seen by a Provider: 06:36 Subjective/Events-last exam Pt is doing better. Sepsis Event Evaluation Height, Weight, BMI Height: 5'11.00" Weight: 266lbs. 0.0oz. 120.031978mu; 37.1 BMI Method: Focused Exam Lactate Level 01/08/18 10:11: Lactic Acid Level 4.84*H 01/08/18 12:20: Lactic Acid Level 5.00*H 01/08/18 19:48: Lactic Acid Level 1.77 Exam Exam Vital Signs Date Time Temp Pulse Resp B/P (MAP) Pulse Ox O2 Delivery O2 Flow Rate FiO2 01/10/18 04:00 96.9 01/10/18 04:00 112 19 132/88 (103) 96 Nasal Cannula 3.00 01/10/18 03:00 105 26 129/82 (98) 94 Nasal Cannula 3.00 01/10/18 02:00 105 20 126/92 (103) 94 Nasal Cannula 3.00 01/10/18 01:00 105 19 119/81 (94) 98 Nasal Cannula 3.00 01/10/18 01:00 105 01/10/18 00:00 97.6 01/10/18 00:00 Nasal Cannula 3.00 01/10/18 00:00 105 18 128/81 (97) 96 Nasal Cannula 3.00 01/09/18 23:00 101 23 130/81 (97) 97 Nasal Cannula 3.00 01/09/18 23:00 Nasal Cannula 3.00 01/09/18 22:00 105 32 119/83 (95) 96 Nasal Cannula 3.00 01/09/18 21:00 Nasal Cannula 3.00 01/09/18 21:00 116 25 134/83 (100) 96 Nasal Cannula 3.00 01/09/18 20:00 112 26 134/99 (111) 96 Nasal Cannula 3.00 01/09/18 19:54 97.5 Nasal Cannula 3.00 01/09/18 19:00 112 01/09/18 19:00 114 27 98/61 (73) 94 Nasal Cannula 3.00 01/09/18 18:00 121 33 134/73 (93) 94 Nasal Cannula 3.00 01/09/18 17:00 123 18 154/68 (96) 94 Nasal Cannula 3.00 01/09/18 16:00 120 25 128/78 (95) 96 Nasal Cannula 3.00 01/09/18 15:00 115 18 133/72 (92) 96 Nasal Cannula 3.00 01/09/18 14:00 120 26 132/73 (92) 95 Nasal Cannula 3.00 01/09/18 13:00 115 22 116/73 (87) Nasal Cannula 3.00 01/09/18 13:00 115 01/09/18 12:00 123 26 162/85 (110) 96 Nasal Cannula 3.00 01/09/18 11:00 116 32 149/86 (107) 99 Nasal Cannula 3.00 01/09/18 10:00 120 25 144/77 (99) Nasal Cannula 3.00 01/09/18 09:03 Nasal Cannula 3.00 01/09/18 09:00 126 31 148/84 (105) Nasal Cannula 3.00 01/09/18 08:52 Nasal Cannula 3.00 01/09/18 08:00 122 24 155/96 (115) Nasal Cannula 3.00 01/09/18 07:00 114 25 148/76 (100) Nasal Cannula 3.00 01/09/18 07:00 114 01/09/18 06:00 115 21 148/73 (98) 95 Nasal Cannula 3.00 I & O 01/10/18 07:00 Intake Total 1630 ml Output Total 1820 ml Balance -190 ml Height & Weight Height: 5'11.00" Weight: 266lbs. 0.0oz. 120.416304cr; 37.1 BMI Method: General Appearance: No Apparent Distress, WD/WN, Obese HEENT: PERRL/EOMI, Normal ENT Inspection, Pharynx Normal Neck: Non Tender Respiratory: Chest Non Tender, Lungs Clear, Normal Breath Sounds, No Accessory Muscle Use, No Respiratory Distress Cardiovascular: Regular Rate, Rhythm, No Edema, No Gallop, No JVD, No Murmur, Normal Peripheral Pulses Gastrointestinal: non tender, other (No Schriever's or Grimm-Henning's ) Extremity: Non Tender, No Calf Tenderness Neurologic/Psychiatric: Alert, Oriented x3, No Motor/Sensory Deficits, Normal Mood/Affect Skin: Normal Color, Warm/Dry Lymphatic: No Adenopathy Results Lab Laboratory Tests 01/08/18 05:56 01/08/18 10:11 01/08/18 13:06 01/09/18 03:00 01/09/18 14:25 01/10/18 04:10 Assessment/Plan Assessment/Plan Scoliosis with Lumbar stenosis s/p surgery Acute renal failure with hyperkalemia -Continue IVF at 150cc/hr NS Metabolic acidosis -- improving -IVF Sinus tach with HTN --Restart home clonidine -IVF -restart home meds Hx of HTN BRIGHT RIZO DO Jan 10, 2018 05:29
[2018-01-10] MEDS: POTASSIUM CL 10MEQ/50ML IVPB 50 ML IV SCH (05:45)
[2018-01-10] MEDS: MAGNESIUM 1 GM/100 ML IVPB 100 ML IV SCH (05:45)
[2018-01-10] MEDS: KCL 20 MEQ TAB (K-DUR) PO SCH (05:45)
[2018-01-10] MEDS ORDERED: SODIUM PHOSPHATE INJ 30 MM in NS (IVPB) 250 ML IV NR (06:45)
[2018-01-10] MEDS: amLODIPine 5 MG (NORVASC) TAB PO SCH (08:12)
[2018-01-10] MEDS: PANTOPRAZOLE 40 MG (PROTONIX) TAB PO SCH (08:12)
[2018-01-10] MEDS: DOCUSATE SODIUM 100 MG (COLACE) CAP PO SCH ×2 (08:12→20:04)
[2018-01-10] MEDS: cloNIDine 0.1 MG (CATAPRES) TAB PO SCH ×3 (08:12→20:03)
[2018-01-10] MEDS: SENNOSIDES 8.6 MG (SENOKOT) TAB PO SCH ×3 (08:12→20:04)
[2018-01-10] MEDS: MULTIVIT W/MINERALS TAB (THERAGRAN M) PO SCH (08:12)
[2018-01-10] MEDS: oxyCODONE ER 20 MG (OxyCONTIN CR) TAB PO SCH ×3 (08:13→20:04)
[2018-01-10] MEDS: NS IV 1000 ML 1,000 ML IV SCH ×2 (08:13→21:06)
--- NOTE | 2018-01-10 09:45 | Progress Note-Hospitalist ---
DANIEL FOSTER 01/10/18 0945: Subjective HPI/CC On Admission Date Seen by Provider: Jan 10, 2018 Time Seen by Provider: 09:30 CC: s/p spine surgery uncomplicated by Dr Roman POD # 1 HPI: This is a 57yoWM clinic patient of Dr Campuzano in [facility] who presents after an extensive spine surgery per Dr Roman. He has been monitored overnight in the ICU and has done well. Pt reports pain is moderate to severe and overall doing ok as expected. Checked meds and labs. Patient did have elevated creatinine and metabolic acidosis so Dr Corley has ordered IVF with bicarb. Subjective/Events-last exam Patient doing better just slow recovery due to severe pain No BM yet Catheter still in place Hgb decreased explaining his dizziness when ambulating Review of Systems Gastrointestinal: Constipation Musculoskeletal: back pain Focused Exam Lactate Level 01/08/18 10:11: Lactic Acid Level 4.84*H 01/08/18 12:20: Lactic Acid Level 5.00*H 01/08/18 19:48: Lactic Acid Level 1.77 Objective Exam Vital Signs Vital Signs Date Time Temp Pulse Resp B/P (MAP) Pulse Ox O2 Delivery O2 Flow Rate FiO2 01/10/18 08:00 102 29 121/86 (98) 97 Nasal Cannula 3.00 01/10/18 04:00 96.9 Capillary Refill : General Appearance: No Apparent Distress, WD/WN Respiratory: Chest Non Tender, Lungs Clear, Normal Breath Sounds, No Accessory Muscle Use, No Respiratory Distress Cardiovascular: Regular Rate, Rhythm, No Edema, No Gallop, No JVD, No Murmur, Normal Peripheral Pulses Gastrointestinal: Normal Bowel Sounds, Soft Neurologic/Psychiatric: Alert, Oriented x3, No Motor/Sensory Deficits, Normal Mood/Affect Skin: Normal Color, Warm/Dry Results/Procedures Lab Laboratory Tests 01/09/18 14:25 01/10/18 04:10 Patient resulted labs reviewed. Assessment/Plan Assessment and Plan Assess & Plan/Chief Complaint Assessment: Extensive spine surgery uncomplicated by Dr Roman POD # 3 Leukocytosis improved Metabolic acidosis s/p bicarb infusion now resolved ARF now resolved I suspect CRI mild HTN Obesity Chronic lower extremity edema Suspected DERIC Plan: Catheter BM regimen Pain control Added back in [facility] home med Diagnosis/Problems Diagnosis/Problems (1) S/P spinal surgery Status: Acute (2) Leukocytosis Status: Acute Qualifiers: Leukocytosis type: leukemoid reaction Qualified Codes: D72.823 - Leukemoid reaction (3) Metabolic acidosis Status: Resolved (4) Renal failure Status: Resolved Qualifiers: Renal failure chronicity: acute Acute renal failure type: unspecified Qualified Codes: N17.9 - Acute kidney failure, unspecified (5) Hyperkalemia Status: Resolved (6) Hypertension Status: Chronic Qualifiers: Hypertension type: essential hypertension Qualified Codes: I10 - Essential (primary) hypertension (7) Edema Status: Chronic Qualifiers: Edema type: localized Qualified Codes: R60.0 - Localized edema (8) Obesity Status: Chronic Qualifiers: Obesity type: due to excess calories Obesity classification: adult class 2 (BMI 35 - 39.9) Serious obesity comorbidity presence: with serious comorbidity Body mass index: BMI 37.0-37.9 Qualified Codes: E66.01 - Morbid (severe) obesity due to excess calories; Z68.37 - Body mass index (bmi) 37.0- 37.9, adult AYANA GONZALES MED STUDENT 01/10/18 1005: Subjective Subjective/Events-last exam Patient is feeling better today He states that he still has not had a BM Patient reports feeling lightheaded with ambulation Patient has been using inspirometer intermittently - he agreed to use it more today He reports no other symptoms Objective Exam General Appearance: No Apparent Distress, WD/WN Respiratory: Chest Non Tender, Lungs Clear, Normal Breath Sounds, No Accessory Muscle Use, No Respiratory Distress Cardiovascular: Regular Rate, Rhythm, No Edema, No Gallop, No JVD, No Murmur, Normal Peripheral Pulses Neurologic/Psychiatric: Alert, Oriented x3, No Motor/Sensory Deficits, Normal Mood/Affect Skin: Normal Color, Warm/Dry Assessment/Plan Assessment and Plan Assess & Plan/Chief Complaint Assessment: 1) Post-operative recovery from back surgery 2) Pain due to surgery 3) Obesity Plan: 1) Continue to monitor in ICU 2) Continue to manage pain 3) Physical rehabilitation DANIEL FOSTER DO Jan 10, 2018 09:45 AYANA GONZALES MED STUDENT Jan 10, 2018 10:05
--- NOTE | 2018-01-10 10:10 | Physical Therapy Daily Note ---
PT Daily Note-Current Subjective Patient in bed pre tx, agrees to PT with encouragement, has 9/10 pain in back. He states he has been having some cramping/spasms in right leg. Appearance Patient in recliner post tx with nurse call, phone, tray, all needs met. Mental Status Patient Orientation: Person, Place, Situation Attachments: Oxygen, Drains, Faith Catheter, IV TLSO Transfers Functional [place] Measure 0=Not Assessed/NA 4=Minimal Assistance 1=Total Assistance 5=Supervision or Setup 2=Maximal Assistance 6=Modified [place] 3=Moderate Assistance 7=Complete IndependenceIRFPAI Quality Coding Scale 6 Independent with activity with or without an assistive device 5 Patient requires set up or clean up by helper. Patient completes activity by themselves 4 Supervision or touching assist (CGA). [place] provide cues , steadying assist 3 The helper provides less than half the effort to complete the activity 2 The helper provides more than half the effort to complete the activity 1 Dependent. The helper does all the effort to complete an activity 7 Patient refused to complete or attempt activity 9 The patient did not perform the activity before the current illness or injury 88 Not attempted due to Medical conditions or safety concerns Transfers (B, C, W/C) (FIM): 2 Scootin Rollin Supine to/from Sit: 2 Sit to/from Stand: 4 Bed to/from Chair: 4 Max assist for bed mobility, supine to sit, and scooting, min assist for sit to stand and transfers. Patient was trained on how to perform a log roll. Weight Bearing Right Lower Extremity: Right Weight Bearing/Tolerated Left Lower Extremity: Left Weight Bearing/Tolerated Gait Training Gait (FIM): 1 Distance: 5' Gait Level of Assist: 4 Gait Persons Needed: 1 Gait Assistive Device: FWW Slow, antalgic ambulation. Patient developed dizziness after ambulating a few feet and had to sit down. He did not stand abruptly and start walking but sat at the edge of the bed for a few minutes and then stood for a couple of minutes before ambulating. Exercises Seated Therapy Exercises: Ankle pumps, Long arc quads Seated Reps: 15 Treatments bed mobility and transfers, ambulation, AROM Assessment Current Status: Poor Progress Slow declining ambulation, and supine to sit PT Shelter Goals Shelter Goals PT Gaming Host Goals Time Frame: Jan 15, 2018 Transfers (B,C,W/C) (FIM): 6 Gait (FIM): 6 Gait distance (FIM): 3=150 ft Distance: 150' Gait Level of Assist: 6 Gait Assistive Device: FWW PT Plan Problem List Problem List: Activity Tolerance, Functional Strength, Safety, Balance, Gait, Transfer, Bed Mobility, ROM Treatment/Plan Treatment Plan: Continue Plan of Care Treatment Plan: Bed Mobility, Education, Functional Activity Dot, Functional Strength, Gait, Safety, Therapeutic Exercise, Transfers Treatment Duration: Jan 15, 2018 Frequency: 11 times per week Estimated Hrs Per Day: .5 hour per day Patient and/or Family Agrees t: Yes Safety Risks/Education Patient Education: Gait Training, Transfer Techniques, Correct Positioning, Reviewed Don/Doff Brace, Safety Issues Teaching Recipient: Patient Teaching Methods: Demonstration, Discussion Response to Teaching: Reinforcement Needed Time/GCodes Time In: 30 Time Out: 0959 Total Billed Treatment Time: 29 Total Billed Treatment 1 visit FA 29' VIRGINIA MAYER PT Jan 10, 2018 10:10
--- NOTE | 2018-01-10 11:38 | Occupational Ther Daily Note ---
OT Current Status-Daily Note Subjective Pt seen in room, up in recliner, agreeable to OT. Reported he wasn't in pain Appearance Alert, cooperative but would fall asleep between exercises Mental Status/Objective Functional [place] Measure 0=Not Assessed/NA 4=Minimal Assistance 1=Total Assistance 5=Supervision or Setup 2=Maximal Assistance 6=Modified [place] 3=Moderate Assistance 7=Complete [place] Other Treatment Pt did 10 reps two different bilat UE exercises with exercise bar and 5 reps shoulder flex ex. To increase comfortable functional use UEs and increase activity tolerance. Pt's O2 sats would drop with exercise bur remained above 93 % but respirations were shallow at times. HR 106-110 throughout, decreasing with recovery periods. Nursing notified of shallow breathing. Pt left up in recliner, all needs met Education OT Patient Education: Progress toward Goal/Update tx plan, Purpose of tx/ functional activities Teaching Recipient: Patient Teaching Methods: Demonstration, Discussion Response to Teaching: Verbalize Understanding, Return Demonstration, Reinforcement Needed OT Short Term Goals Short Term Goals 1=Demonstrate adherence to instructed precautions during ADL tasks. 2=Patient will verbalize/demonstrate understanding of assistive devices/ modifications for ADL. 3=Patient will improve strength/tolerance for activity to enable patient to perform ADL's. OT Contract Forester Goals Contract Forester Goals Time Frame: Jan 15, 2018 Eating (FIM): 6 Grooming(FIM): 6 Bathing(FIM): 5 Upper Body Dressing(FIM): 5 Lower Body Dressing(FIM): 5 Toileting(FIM): 5 Toilet/Commode Transfer(FIM): 5 Shower Transfer(FIM): 5 Additional Goals: 1-Demonstrate ADL Tasks, 2-Verbalize Understanding, 3- ImproveStrength/Dot 1=Demonstrate adherence to instructed precautions during ADL tasks. 2=Patient will verbalize/demonstrate understanding of assistive devices/ modifications for ADL. 3=Patient will improve strength/tolerance for activity to enable patient to perform ADL's. OT Education/Plan Problem List/Assessment Pt would benefit from skilled OT to increase his independence in basic self care to allow him to safely return home Discharge Recommendations Plan/Recommendations: Continue POC Treatment Plan/Plan of Care Patient would benefit from OT for education, treatment and training to promote independence in ADL's, mobility, safety and/or upper extremity function for ADL' s. Plan of Care: ADL Retraining, Functional Mobility, UE Funct Exercise/Act Treatment Duration: Jan 15, 2018 Frequency: 5 times per week Estimated Hrs Per Day: .5 hour per day Agreement: Yes Rehab Potential: Good Time/GCodes Start Time: 10:40 Stop Time: 10:55 Total Time Billed (hr/min): 15 Billed Treatment Time visit, 15 minutes exercise GOLDIE VINSON OT Jan 10, 2018 11:38
--- NOTE | 2018-01-10 15:15 | Physical Therapy Daily Note ---
PT Daily Note-Current Subjective Agreeable to PT. Transfers Functional [place] Measure 0=Not Assessed/NA 4=Minimal Assistance 1=Total Assistance 5=Supervision or Setup 2=Maximal Assistance 6=Modified [place] 3=Moderate Assistance 7=Complete IndependenceIRFPAI Quality Coding Scale 6 Independent with activity with or without an assistive device 5 Patient requires set up or clean up by helper. Patient completes activity by themselves 4 Supervision or touching assist (CGA). [place] provide cues , steadying assist 3 The helper provides less than half the effort to complete the activity 2 The helper provides more than half the effort to complete the activity 1 Dependent. The helper does all the effort to complete an activity 7 Patient refused to complete or attempt activity 9 The patient did not perform the activity before the current illness or injury 88 Not attempted due to Medical conditions or safety concerns Weight Bearing Right Lower Extremity: Right Weight Bearing/Tolerated Left Lower Extremity: Left Weight Bearing/Tolerated Treatments Supine to sit EOB with max assist using log roll technique. Sit to stand with mod assist and bed elevated. Pt was able to take 4-5 steps to transfer to the chair using the FWW with close CG to min assist. Clam shell brace on with all treatment. Pt up in chair post treatment with needs met. Assessment Transfers and transitional movement slow and take extra time. Difficulty with transfers. Requires dep assist to apply clam shell brace. Pt able to stand and take steps, but does seem unsteady. PT Longterm Goals Longterm Goals PT Environmental Engineering Aide Goals Time Frame: Jan 15, 2018 Transfers (B,C,W/C) (FIM): 6 Gait (FIM): 6 Gait distance (FIM): 3=150 ft Distance: 150' Gait Level of Assist: 6 Gait Assistive Device: FWW PT Plan Problem List Problem List: Activity Tolerance, Functional Strength, Safety Treatment/Plan Treatment Plan: Continue Plan of Care Treatment Plan: Bed Mobility, Education, Functional Activity Dot, Functional Strength, Gait, Safety, Therapeutic Exercise, Transfers Treatment Duration: Jan 15, 2018 Frequency: 11 times per week Estimated Hrs Per Day: .5 hour per day Patient and/or Family Agrees t: Yes Time/GCodes Time In: 1440 Time Out: 1503 Total Billed Treatment Time: 23 Total Billed Treatment visit FA 23 KUMAR RAMOS PT Jan 10, 2018 15:15
--- NOTE | 2018-01-10 15:26 | Progress Note (SOAP) ---
Subjective Date Seen by a Provider: Jan 10, 2018 Time Seen by a Provider: 15:22 Subjective/Events-last exam POD #3 Patient evaluated on surgical floor Patient states that he is feeling better. Focused Exam Lactate Level 01/08/18 10:11: Lactic Acid Level 4.84*H 01/08/18 12:20: Lactic Acid Level 5.00*H 01/08/18 19:48: Lactic Acid Level 1.77 Objective Exam Vital Signs Date Time Temp Pulse Resp B/P (MAP) Pulse Ox O2 Delivery O2 Flow Rate FiO2 01/10/18 12:20 96.8 101 12 123/70 (87) 96 Nasal Cannula 3.00 01/10/18 11:00 105 9 131/86 (101) 97 Nasal Cannula 3.00 01/10/18 10:00 113 12 139/86 (103) 94 Nasal Cannula 3.00 01/10/18 09:00 101 26 115/80 (92) 94 Nasal Cannula 3.00 01/10/18 08:20 Nasal Cannula 3.00 01/10/18 08:00 102 29 121/86 (98) 97 Nasal Cannula 3.00 01/10/18 07:00 101 22 116/75 (89) 96 Nasal Cannula 3.00 01/10/18 07:00 101 01/10/18 06:38 Nasal Cannula 3.00 01/10/18 06:00 106 28 134/76 (95) 96 Nasal Cannula 3.00 01/10/18 05:00 105 25 132/81 (98) 96 Nasal Cannula 3.00 01/10/18 04:00 96.9 01/10/18 04:00 112 19 132/88 (103) 96 Nasal Cannula 3.00 01/10/18 03:00 105 26 129/82 (98) 94 Nasal Cannula 3.00 01/10/18 02:00 105 20 126/92 (103) 94 Nasal Cannula 3.00 01/10/18 01:00 105 19 119/81 (94) 98 Nasal Cannula 3.00 01/10/18 01:00 105 01/10/18 00:00 97.6 01/10/18 00:00 Nasal Cannula 3.00 01/10/18 00:00 105 18 128/81 (97) 96 Nasal Cannula 3.00 01/09/18 23:00 101 23 130/81 (97) 97 Nasal Cannula 3.00 01/09/18 23:00 Nasal Cannula 3.00 01/09/18 22:00 105 32 119/83 (95) 96 Nasal Cannula 3.00 01/09/18 21:00 Nasal Cannula 3.00 01/09/18 21:00 116 25 134/83 (100) 96 Nasal Cannula 3.00 01/09/18 20:00 112 26 134/99 (111) 96 Nasal Cannula 3.00 01/09/18 19:54 97.5 Nasal Cannula 3.00 01/09/18 19:00 112 01/09/18 19:00 114 27 98/61 (73) 94 Nasal Cannula 3.00 01/09/18 18:00 121 33 134/73 (93) 94 Nasal Cannula 3.00 01/09/18 17:00 123 18 154/68 (96) 94 Nasal Cannula 3.00 01/09/18 16:00 120 25 128/78 (95) 96 Nasal Cannula 3.00 I & O 01/10/18 07:00 Intake Total 1780 ml Output Total 2155 ml Balance -375 ml Capillary Refill : General Appearance: No Apparent Distress Respiratory: No Accessory Muscle Use, No Respiratory Distress Cardiovascular: No Edema, Normal Peripheral Pulses Gastrointestinal: non tender, soft, other (No Grimm-Henning's, No Montgomery's ) Extremity: Non Tender, No Calf Tenderness Neurologic/Psychiatric: Alert, Oriented x3, No Motor/Sensory Deficits, Normal Mood/Affect, leveler helper II-XII Norm as Tested Skin: Normal Color, Other (Dressing CDI) Results Lab Laboratory Tests 01/10/18 04:10: White Blood Count 13.7H, Red Blood Count 2.90L, Hemoglobin 8.3L, Hematocrit 26L , Mean Corpuscular Volume 90, Mean Corpuscular Hemoglobin 29, Mean Corpuscular Hemoglobin Concent 32, Red Cell Distribution Width 14.4, Platelet Count 299, Mean Platelet Volume 8.3, Neutrophils (%) (Auto) 85H, Lymphocytes (%) (Auto) 6L , Monocytes (%) (Auto) 8, Eosinophils (%) (Auto) 1, Basophils (%) (Auto) 0, Neutrophils # (Auto) 11.7H, Lymphocytes # (Auto) 0.8L, Monocytes # (Auto) 1.1H, Eosinophils # (Auto) 0.1, Basophils # (Auto) 0.0, Sodium Level 137, Potassium Level 4.2, Chloride Level 106, Carbon Dioxide Level 21, Anion Gap 10, Blood Urea Nitrogen 18, Creatinine 0.88, Estimat Glomerular Filtration Rate > 60, BUN/ Creatinine Ratio 20, Glucose Level 109H, Calcium Level 8.2L, Phosphorus Level 1.6L, Magnesium Level 2.7H Microbiology 01/07/18 MRSA Screen - Final, Complete MRSA not isolated Assessment/Plan Assessment/Plan Assess & Plan/Chief Complaint Lumbar stenosis with radiculopathy Thoracolumbar scoliosis s/p L4-S1 ALIF, L1-4 DLIF, T6-S2 PSF with L1-3 laminectomy LUIS JOHNOSN Jan 10, 2018 15:26
--- NOTE | 2018-01-10 19:34 | Diagnostic Imaging Report ---
INDICATION: Recent scoliosis surgery AP and lateral views of the entire spine are obtained. There is extensive posterior inner length spinal fusion extending from T6 through the upper sacrum with bilateral iliac extensions. There is slight left convexity curvature of the thoracic spine and mild right convexity curvature of lumbar spine. There is no evidence of orthopedic hardware complication. There is mild bilateral basilar atelectasis in the lungs. Radiopaque devices projecting over lower thoracic and upper lumbar spine are noted. This could be related to discectomies and possible disc prostheses. There is possible anterior displacement of the prosthetic device at the thoracolumbar junction. IMPRESSION: Extensive spinal fusion as described. Devices projecting over the anterior aspect of disc spaces in the lower thoracic and lumbar spine are noted with possible anterior displacement of device at the thoracolumbar junction although clinical correlation would be of use. Dictated by: Dictated on workstation # [id number]
[2018-01-10] MEDS: POLYETHYLENE GLYCOL 17 GM (MIRALAX) PACK PO SCH (20:04)
[2018-01-11] VITALS: BP_SYST 143; BP_SYST 85; BP_DIAS 55; BP_DIAS 78
[2018-01-11 04:00] VITALS: BP 153/82
--- NOTE | 2018-01-11 05:40 | Progress Note (SOAP) ---
Subjective Date Seen by a Provider: Jan 11, 2018 Time Seen by a Provider: 05:36 Subjective/Events-last exam POD #4 Patient states that his back is feeling better, complains of abdominal pain + Flatus, - BM Review of Systems General: No Chills Pulmonary: No Cough Gastrointestinal: Abdominal Pain; No: Nausea, Vomiting Musculoskeletal: back pain Neurological: No: Weakness, Numbness, Confusion Focused Exam Lactate Level 01/08/18 10:11: Lactic Acid Level 4.84*H 01/08/18 12:20: Lactic Acid Level 5.00*H 01/08/18 19:48: Lactic Acid Level 1.77 Objective Exam Vital Signs Date Time Temp Pulse Resp B/P (MAP) Pulse Ox O2 Delivery O2 Flow Rate FiO2 01/11/18 00:00 99.3 110 14 143/78 (99) 95 Nasal Cannula 3.00 01/10/18 20:00 Nasal Cannula 3.00 01/10/18 19:23 99.0 103 14 138/84 (102) 97 Nasal Cannula 3.00 01/10/18 15:38 98.8 101 16 137/85 (102) 97 Nasal Cannula 3.00 01/10/18 12:20 96.8 101 12 123/70 (87) 96 Nasal Cannula 3.00 01/10/18 11:00 105 9 131/86 (101) 97 Nasal Cannula 3.00 01/10/18 10:00 113 12 139/86 (103) 94 Nasal Cannula 3.00 01/10/18 09:00 101 26 115/80 (92) 94 Nasal Cannula 3.00 01/10/18 08:20 Nasal Cannula 3.00 01/10/18 08:00 102 29 121/86 (98) 97 Nasal Cannula 3.00 01/10/18 07:00 101 22 116/75 (89) 96 Nasal Cannula 3.00 01/10/18 07:00 101 01/10/18 06:38 Nasal Cannula 3.00 01/10/18 06:00 106 28 134/76 (95) 96 Nasal Cannula 3.00 I & O 01/11/18 07:00 Intake Total 2010 ml Output Total 1045 ml Balance 965 ml Capillary Refill : General Appearance: No Apparent Distress Respiratory: No Accessory Muscle Use, No Respiratory Distress Cardiovascular: Normal Peripheral Pulses Gastrointestinal: normal bowel sounds, distended; No guarding, No rebound; tenderness, other (No Grimm-Henning's or Rainer's sign) Extremity: Normal Capillary Refill, Normal Inspection Neurologic/Psychiatric: Alert, Oriented x3, No Motor/Sensory Deficits, Normal Mood/Affect, buyer assistant II-XII Norm as Tested Skin: Other (Dressing CDI ) Results Lab Microbiology 01/07/18 MRSA Screen - Final, Complete MRSA not isolated Assessment/Plan Assessment/Plan Assess & Plan/Chief Complaint Lumbar stenosis with radiculopathy Thoracolumbar scoliosis s/p L4-S1 ALIF, L1-4 DLIF, T6-S2 PSF with L1-3 laminectomy Increase bowel regimen DC LUIS Jay Jan 11, 2018 05:39
[2018-01-11] MEDS ORDERED: MILK OF MAGNESIA 400 MG/5 ML 30 ML UDC PO ONE (05:45)
[2018-01-11] MEDS: MULTIVIT W/MINERALS TAB (THERAGRAN M) PO SCH (05:46)
[2018-01-11] MEDS: PANTOPRAZOLE 40 MG (PROTONIX) TAB PO SCH (05:46)
[2018-01-11] MEDS: oxyCODONE/APAP 10/325MG (PERCOCET 10) TABLET PO PRN (05:46)
[2018-01-11] MEDS ORDERED: MILK OF MAGNESIA 400 MG/5 ML 30 ML UDC ONE (05:47)
[2018-01-11 06:09] LABS: BASOPHILS % (AUTO) 0 % (0-10); EOSINOPHILS # (AUTO) 0.2 10^3/uL (0.0-0.3); EOSINOPHILS % (AUTO) 2 % (0-10); HEMATOCRIT 26 % (40-54); LYMPHOCYTES # (AUTO) 0.7 X 10^3 (1.0-4.0); LYMPHOCYTES % (AUTO) 7 % (12-44); MEAN CORPUSCULAR HEMOGLOBIN 28 PG (25-34); MEAN CORPUSCULAR HGB CONC 31 G/DL (32-36); MEAN CORPUSCULAR VOLUME 91 FL (80-99); MEAN PLATELET VOLUME 8.6 FL (7.4-10.4); MONOCYTES # (AUTO) 0.9 X 10^3 (0.0-1.0); MONOCYTES % (AUTO) 9 % (0-12); NEUTROPHILS # (AUTO) 8.5 X 10^3 (1.8-7.8); NEUTROPHILS % (AUTO) 82 % (42-75); PLATELET COUNT 306 10^3/uL (130-400); RED BLOOD COUNT 2.82 10^6/uL (4.35-5.85); RED CELL DISTRIBUTION WIDTH 14.3 % (10.0-14.5); WHITE BLOOD COUNT 10.3 10^3/uL (4.3-11.0)
[2018-01-11 06:32] LABS: BUN/CREATININE RATIO 22; CALCIUM 8.5 MG/DL (8.5-10.1); CARBON DIOXIDE 23 MMOL/L (21-32); CHLORIDE 105 MMOL/L (98-107); CREATININE SERUM 0.79 MG/DL (0.60-1.30); GFR ESTIMATED > 60; GLUCOSE 101 MG/DL (70-105); MAGNESIUM 2.2 MG/DL (1.8-2.4); PHOSPHORUS 2.1 MG/DL (2.3-4.7); SODIUM 137 MMOL/L (135-145)
--- NOTE | 2018-01-11 06:50 | Pulmonary Progress Note ---
Subjective Time Seen by a Provider: 06:49 Subjective/Events-last exam No complications noted. Sepsis Event Evaluation Height, Weight, BMI Height: 5'11.00" Weight: 266lbs. 0.0oz. [id number]; 37.1 BMI Method: Focused Exam Lactate Level 01/08/18 10:11: Lactic Acid Level 4.84*H 01/08/18 12:20: Lactic Acid Level 5.00*H 01/08/18 19:48: Lactic Acid Level 1.77 Exam Exam Vital Signs Date Time Temp Pulse Resp B/P (MAP) Pulse Ox O2 Delivery O2 Flow Rate FiO2 01/11/18 00:00 99.3 110 14 143/78 (99) 95 Nasal Cannula 3.00 01/10/18 20:00 Nasal Cannula 3.00 01/10/18 19:23 99.0 103 14 138/84 (102) 97 Nasal Cannula 3.00 01/10/18 15:38 98.8 101 16 137/85 (102) 97 Nasal Cannula 3.00 01/10/18 12:20 96.8 101 12 123/70 (87) 96 Nasal Cannula 3.00 01/10/18 11:00 105 9 131/86 (101) 97 Nasal Cannula 3.00 01/10/18 10:00 113 12 139/86 (103) 94 Nasal Cannula 3.00 01/10/18 09:00 101 26 115/80 (92) 94 Nasal Cannula 3.00 01/10/18 08:20 Nasal Cannula 3.00 01/10/18 08:00 102 29 121/86 (98) 97 Nasal Cannula 3.00 01/10/18 07:00 101 22 116/75 (89) 96 Nasal Cannula 3.00 01/10/18 07:00 101 I & O 01/11/18 07:00 Intake Total 3085 ml Output Total 1825 ml Balance 1260 ml Height & Weight Height: 5'11.00" Weight: 266lbs. 0.0oz. [id number]; 37.1 BMI Method: General Appearance: No Apparent Distress HEENT: PERRL/EOMI, Normal ENT Inspection, Pharynx Normal Neck: Non Tender Respiratory: No Accessory Muscle Use, No Respiratory Distress Cardiovascular: Normal Peripheral Pulses Gastrointestinal: normal bowel sounds, distended; No guarding, No rebound; tenderness, other (No Grimm-Henning's or Rainer's sign) Extremity: Normal Capillary Refill, Normal Inspection Neurologic/Psychiatric: Alert, Oriented x3, No Motor/Sensory Deficits, Normal Mood/Affect, enologist II-XII Norm as Tested Skin: Other (Dressing CDI ) Lymphatic: No Adenopathy Results Lab Laboratory Tests 01/09/18 14:25 01/10/18 04:10 01/11/18 06:01 Assessment/Plan Assessment/Plan Scoliosis with Lumbar stenosis s/p surgery Acute renal failure with hyperkalemia - IVF at 150cc/hr NS -- KVO IVF Sinus tach with HTN -clonidine, lisinopril, norvask -restart home meds Hx of HTN I am going to sign off please call with any questions or concerns. BRIGHT RIZO DO Jan 11, 2018 06:50
[2018-01-11 08:38] VITALS: BP 165/77
[2018-01-11] MEDS: SENNOSIDES 8.6 MG (SENOKOT) TAB PO SCH ×2 (08:38→20:41)
[2018-01-11] MEDS: cloNIDine 0.1 MG (CATAPRES) TAB PO SCH ×3 (08:38→20:41)
[2018-01-11] MEDS: DOCUSATE SODIUM 100 MG (COLACE) CAP PO SCH ×2 (08:38→20:41)
[2018-01-11] MEDS: amLODIPine 5 MG (NORVASC) TAB PO SCH (08:38)
[2018-01-11] MEDS: oxyCODONE ER 20 MG (OxyCONTIN CR) TAB PO SCH ×3 (08:39→20:41)
[2018-01-11] MEDS: lisINopril 20 MG (PRINIVIL) TABLET PO SCH (08:44)
--- NOTE | 2018-01-11 10:44 | Progress Note-Hospitalist ---
DANIEL FOSTER 01/11/18 1044: Subjective HPI/CC On Admission Date Seen by Provider: Jan 11, 2018 Time Seen by Provider: 10:00 CC: s/p spine surgery uncomplicated by Dr Roman POD # 1 HPI: This is a 57yoWM clinic patient of Dr Campuzano in [facility] who presents after an extensive spine surgery per Dr Roman. He has been monitored overnight in the ICU and has done well. Pt reports pain is moderate to severe and overall doing ok as expected. Checked meds and labs. Patient did have elevated creatinine and metabolic acidosis so Dr Corley has ordered IVF with bicarb. Subjective/Events-last exam Patient not pleasant Pain is reported continuously No BM yet Likely will refuse BM meds and SSE Review of Systems Gastrointestinal: Constipation Musculoskeletal: back pain Focused Exam Lactate Level Objective Exam Vital Signs Vital Signs Date Time Temp Pulse Resp B/P (MAP) Pulse Ox O2 Delivery O2 Flow Rate FiO2 01/11/18 15:59 97.3 98 18 159/83 (108) 92 Room Air 01/11/18 12:00 3.00 Capillary Refill : General Appearance: No Apparent Distress, WD/WN, Chronically ill, Obese Respiratory: Chest Non Tender, Lungs Clear, Normal Breath Sounds, No Accessory Muscle Use, No Respiratory Distress Cardiovascular: Regular Rate, Rhythm, No Edema, No Gallop, No JVD, No Murmur, Normal Peripheral Pulses Neurologic/Psychiatric: Alert, Oriented x3, No Motor/Sensory Deficits, Normal Mood/Affect Skin: Normal Color, Warm/Dry Results/Procedures Lab Laboratory Tests 01/11/18 06:01 Patient resulted labs reviewed. Assessment/Plan Assessment and Plan Assess & Plan/Chief Complaint Assessment: Extensive spine surgery uncomplicated by Dr Roman POD # 4 Leukocytosis improved Metabolic acidosis s/p bicarb infusion now resolved ARF now resolved I suspect CRI mild HTN Obesity Chronic lower extremity edema Suspected DERIC Plan: Catheter BM regimen Pain control Added back in [facility] home med Diagnosis/Problems Diagnosis/Problems (1) S/P spinal surgery Status: Acute (2) Leukocytosis Status: Acute Qualifiers: Leukocytosis type: leukemoid reaction Qualified Codes: D72.823 - Leukemoid reaction (3) Metabolic acidosis Status: Resolved (4) Renal failure Status: Resolved Qualifiers: Renal failure chronicity: acute Acute renal failure type: unspecified Qualified Codes: N17.9 - Acute kidney failure, unspecified (5) Hyperkalemia Status: Resolved (6) Hypertension Status: Chronic Qualifiers: Hypertension type: essential hypertension Qualified Codes: I10 - Essential (primary) hypertension (7) Edema Status: Chronic Qualifiers: Edema type: localized Qualified Codes: R60.0 - Localized edema (8) Obesity Status: Chronic Qualifiers: Obesity type: due to excess calories Obesity classification: adult class 2 (BMI 35 - 39.9) Serious obesity comorbidity presence: with serious comorbidity Body mass index: BMI 37.0-37.9 Qualified Codes: E66.01 - Morbid (severe) obesity due to excess calories; Z68.37 - Body mass index (bmi) 37.0- 37.9, adult Clinical Quality Measures DVT/VTE Risk/Contraindication: Risk Factor Score Per Nursin RFS Level Per Nursing on Admit: 4+=Very High AYANA GONZALES MED STUDENT 01/11/18 1117: Subjective Subjective/Events-last exam Patient is obviously irritated at being questioned He reports pain and discomfort He reports a poor appetite He still has not had a BM Patient has been reluctantly ambulatory Objective Exam General Appearance: No Apparent Distress, WD/WN Respiratory: Chest Non Tender, Lungs Clear, Normal Breath Sounds, No Accessory Muscle Use, No Respiratory Distress Cardiovascular: Regular Rate, Rhythm, No Edema, No Gallop, No JVD, No Murmur Neurologic/Psychiatric: Alert, Oriented x3, No Motor/Sensory Deficits, Normal Mood/Affect Skin: Normal Color, Warm/Dry Assessment/Plan Assessment and Plan Assess & Plan/Chief Complaint Assessment: 1) Recovery from surgery 2) Back pain Plan: 1) Continue to monitor 2) Control pain 3) Physical rehabilitation DANIEL FOSTER DO Jan 11, 2018 10:44 AYANA GONZALES MED STUDENT Jan 11, 2018 11:17
[2018-01-11] MEDS ORDERED: BISACODYL 10 MG SUPP (DULCOLAX) PR NR (10:45)
[2018-01-11] MEDS: NS IV 1000 ML 1,000 ML IV SCH (10:53)
--- NOTE | 2018-01-11 11:28 | Physical Therapy Daily Note ---
PT Daily Note-Current Subjective Agrees to walk with PT. Transfers Functional [place] Measure 0=Not Assessed/NA 4=Minimal Assistance 1=Total Assistance 5=Supervision or Setup 2=Maximal Assistance 6=Modified [place] 3=Moderate Assistance 7=Complete IndependenceIRFPAI Quality Coding Scale 6 Independent with activity with or without an assistive device 5 Patient requires set up or clean up by helper. Patient completes activity by themselves 4 Supervision or touching assist (CGA). [place] provide cues , steadying assist 3 The helper provides less than half the effort to complete the activity 2 The helper provides more than half the effort to complete the activity 1 Dependent. The helper does all the effort to complete an activity 7 Patient refused to complete or attempt activity 9 The patient did not perform the activity before the current illness or injury 88 Not attempted due to Medical conditions or safety concerns Sit to stand with min assist and skilled cues for hand placement and sequencing. Weight Bearing Right Lower Extremity: Right Weight Bearing/Tolerated Left Lower Extremity: Left Weight Bearing/Tolerated Gait Training Gait (FIM): 2 Distance (FIM): 1=up to 49 ft Distance: 40 ft Gait Assistive Device: FWW Clam shell brace in situ. Treatments Gait training. Up in chair post treatment. Assessment Current Status: Good Progress Slow to complete transfers and requires cues for sequencing. Slow with gait, decreased step length, decreased foot clearance and slow. PT Longterm Goals Longterm Goals PT Band Teacher Goals Time Frame: Jan 15, 2018 Transfers (B,C,W/C) (FIM): 6 Gait (FIM): 6 Gait distance (FIM): 3=150 ft Distance: 150' Gait Level of Assist: 6 Gait Assistive Device: FWW PT Plan Problem List Problem List: Activity Tolerance, Functional Strength, Safety, Balance, Gait, Transfer, Bed Mobility Treatment/Plan Treatment Plan: Continue Plan of Care Treatment Plan: Bed Mobility, Education, Functional Activity Dot, Functional Strength, Gait, Safety, Therapeutic Exercise, Transfers Treatment Duration: Jan 15, 2018 Frequency: 11 times per week Estimated Hrs Per Day: .5 hour per day Patient and/or Family Agrees t: Yes Safety Risks/Education Patient Education: Transfer Techniques, Safety Issues Teaching Recipient: Patient Teaching Methods: Demonstration, Discussion Response to Teaching: Reinforcement Needed Time/GCodes Time In: 925 Time Out: 952 Total Billed Treatment Time: 27 Total Billed Treatment visit GT 27 KUMAR RAMOS PT Jan 11, 2018 11:28
--- NOTE | 2018-01-11 11:41 | Occupational Ther Daily Note ---
OT Current Status-Daily Note Subjective Nrsg in room. Pt transferring to toilet with nrsg. Mental Status/Objective Patient Orientation: Person, Place, Time, Situation Functional [place] Measure 0=Not Assessed/NA 4=Minimal Assistance 1=Total Assistance 5=Supervision or Setup 2=Maximal Assistance 6=Modified [place] 3=Moderate Assistance 7=Complete [place] Attachments: IV, Other-See Comments (TLSO) ADL-Treatment 2 person assist for safety for toilet transfer, pt uses FWW and grabbar to stand. CGA when ambulating and assist for IV pole and tubing. Assist x2 for toileting for safety. Assist x2 for log roll when transferring into bed. After therapy, nrsg in room to administer enema. All needs met in room. Lower Body Dressing (FIM): 2 (Assist to don/doff socks) Toileting (FIM): 1 Toilet/Commode Transfer (FIM): 1 OT Short Term Goals Short Term Goals 1=Demonstrate adherence to instructed precautions during ADL tasks. 2=Patient will verbalize/demonstrate understanding of assistive devices/ modifications for ADL. 3=Patient will improve strength/tolerance for activity to enable patient to perform ADL's. OT Fci Goals Round Boner Goals Time Frame: Jan 15, 2018 Eating (FIM): 6 Grooming(FIM): 6 Bathing(FIM): 5 Upper Body Dressing(FIM): 5 Lower Body Dressing(FIM): 5 Toileting(FIM): 5 Toilet/Commode Transfer(FIM): 5 Shower Transfer(FIM): 5 Additional Goals: 1-Demonstrate ADL Tasks, 2-Verbalize Understanding, 3- ImproveStrength/Dot 1=Demonstrate adherence to instructed precautions during ADL tasks. 2=Patient will verbalize/demonstrate understanding of assistive devices/ modifications for ADL. 3=Patient will improve strength/tolerance for activity to enable patient to perform ADL's. OT Education/Plan Problem List/Assessment Pt would benefit from skilled OT to increase his independence in basic self care to allow him to safely return home Discharge Recommendations Plan/Recommendations: Continue POC Treatment Plan/Plan of Care Patient would benefit from OT for education, treatment and training to promote independence in ADL's, mobility, safety and/or upper extremity function for ADL' s. Plan of Care: ADL Retraining, Functional Mobility, UE Funct Exercise/Act Treatment Duration: Jan 15, 2018 Frequency: 5 times per week Estimated Hrs Per Day: .5 hour per day Agreement: Yes Rehab Potential: Good Time/GCodes Start Time: 11:10 Stop Time: 11:35 Total Time Billed (hr/min): 25 Billed Treatment Time 1 visit-ADL 2 (25 min) KUMAR CRUZ Jan 11, 2018 11:41
[2018-01-11 12:00] VITALS: BP 168/84
--- NOTE | 2018-01-11 14:21 | Physical Therapy Daily Note ---
PT Daily Note-Current Subjective Patient in bed pre tx, agrees reluctantly to PT, has pain of 7/10 in his back. Patient would like to try to use the restroom after ambulation. Appearance Patient on toilet post tx, instructed to use the nurse call when done. Mental Status Patient Orientation: Person, Place Attachments: Drains, IV TLSO Transfers Functional [place] Measure 0=Not Assessed/NA 4=Minimal Assistance 1=Total Assistance 5=Supervision or Setup 2=Maximal Assistance 6=Modified [place] 3=Moderate Assistance 7=Complete IndependenceIRFPAI Quality Coding Scale 6 Independent with activity with or without an assistive device 5 Patient requires set up or clean up by helper. Patient completes activity by themselves 4 Supervision or touching assist (CGA). [place] provide cues , steadying assist 3 The helper provides less than half the effort to complete the activity 2 The helper provides more than half the effort to complete the activity 1 Dependent. The helper does all the effort to complete an activity 7 Patient refused to complete or attempt activity 9 The patient did not perform the activity before the current illness or injury 88 Not attempted due to Medical conditions or safety concerns Transfers (B, C, W/C) (FIM): 4 Scootin Rollin Supine to/from Sit: 4 Sit to/from Stand: 4 Bed to/from Chair: 4 Patient performed bed mobility and supine to sit with min assist, sit to stand with CGA. Weight Bearing Right Lower Extremity: Right Weight Bearing/Tolerated Left Lower Extremity: Left Weight Bearing/Tolerated Gait Training Gait (FIM): 1 Distance: 40' Gait Level of Assist: 4 Gait Persons Needed: 1 Gait Assistive Device: FWW CGA, slow, antalgic, no complaints of dizziness Treatments bed mobility and transfers, ambulation Assessment Current Status: Fair Progress improved bed mobility, transfers, ambulation PT Senior Living Goals Senior Living Goals PT Senior Living Goals Time Frame: Jan 15, 2018 Transfers (B,C,W/C) (FIM): 6 Gait (FIM): 6 Gait distance (FIM): 3=150 ft Distance: 150' Gait Level of Assist: 6 Gait Assistive Device: FWW PT Plan Problem List Problem List: Activity Tolerance, Functional Strength, Safety, Balance, Gait, Transfer, Bed Mobility Treatment/Plan Treatment Plan: Continue Plan of Care Treatment Plan: Bed Mobility, Education, Functional Activity Dot, Functional Strength, Gait, Safety, Therapeutic Exercise, Transfers Treatment Duration: Jan 15, 2018 Frequency: 11 times per week Estimated Hrs Per Day: .5 hour per day Patient and/or Family Agrees t: Yes Safety Risks/Education Patient Education: Gait Training, Transfer Techniques, Correct Positioning, Reviewed Don/Doff Brace, Safety Issues Teaching Recipient: Patient Teaching Methods: Demonstration, Discussion Response to Teaching: Reinforcement Needed Time/GCodes Time In: 1400 Time Out: 1415 Total Billed Treatment Time: 15 Total Billed Treatment 1 visit GT 15' VIRGINIA MAYER PT Jan 11, 2018 14:21
[2018-01-11 15:59] VITALS: BP 159/83
[2018-01-11 20:30] VITALS: BP 173/85
[2018-01-11] MEDS: POLYETHYLENE GLYCOL 17 GM (MIRALAX) PACK PO SCH (20:41)
[2018-01-12] VITALS (7 sets, daily range): BP systolic 135–177; BP diastolic 71–90
[2018-01-12] MEDS: oxyCODONE/APAP 10/325MG (PERCOCET 10) TABLET PO PRN (04:18)
[2018-01-12 04:48] LABS: BASOPHILS % (AUTO) 0 % (0-10); EOSINOPHILS # (AUTO) 0.1 10^3/uL (0.0-0.3); EOSINOPHILS % (AUTO) 1 % (0-10); HEMATOCRIT 27 % (40-54); HEMOGLOBIN 8.5 G/DL (13.3-17.7); LYMPHOCYTES # (AUTO) 0.8 X 10^3 (1.0-4.0); LYMPHOCYTES % (AUTO) 7 % (12-44); MEAN CORPUSCULAR HEMOGLOBIN 28 PG (25-34); MEAN CORPUSCULAR HGB CONC 32 G/DL (32-36); MEAN CORPUSCULAR VOLUME 90 FL (80-99); MEAN PLATELET VOLUME 8.4 FL (7.4-10.4); MONOCYTES % (AUTO) 9 % (0-12); NEUTROPHILS # (AUTO) 9.6 X 10^3 (1.8-7.8); NEUTROPHILS % (AUTO) 84 % (42-75); PLATELET COUNT 367 10^3/uL (130-400); RED CELL DISTRIBUTION WIDTH 14.5 % (10.0-14.5); WHITE BLOOD COUNT 11.5 10^3/uL (4.3-11.0)
[2018-01-12 05:08] LABS: BUN/CREATININE RATIO 24; CALCIUM 8.9 MG/DL (8.5-10.1); CARBON DIOXIDE 23 MMOL/L (21-32); CHLORIDE 103 MMOL/L (98-107); GFR ESTIMATED > 60; GLUCOSE 115 MG/DL (70-105); MAGNESIUM 1.8 MG/DL (1.8-2.4); PHOSPHORUS 2.8 MG/DL (2.3-4.7); POTASSIUM 3.8 MMOL/L (3.6-5.0); SODIUM 138 MMOL/L (135-145)
[2018-01-12] MEDS: MULTIVIT W/MINERALS TAB (THERAGRAN M) PO SCH (06:50)
[2018-01-12] MEDS: PANTOPRAZOLE 40 MG (PROTONIX) TAB PO SCH (06:50)
[2018-01-12] MEDS: SENNOSIDES 8.6 MG (SENOKOT) TAB PO SCH ×2 (08:32→21:15)
[2018-01-12] MEDS: lisINopril 20 MG (PRINIVIL) TABLET PO SCH (08:32)
[2018-01-12] MEDS: DOCUSATE SODIUM 100 MG (COLACE) CAP PO SCH ×2 (08:32→21:15)
[2018-01-12] MEDS: oxyCODONE ER 20 MG (OxyCONTIN CR) TAB PO SCH ×3 (08:33→21:15)
[2018-01-12] MEDS: amLODIPine 5 MG (NORVASC) TAB PO SCH (08:33)
[2018-01-12] MEDS: cloNIDine 0.1 MG (CATAPRES) TAB PO SCH ×3 (08:34→21:15)
--- NOTE | 2018-01-12 09:34 | Progress Note (SOAP) ---
Subjective Date Seen by a Provider: Jan 12, 2018 Time Seen by a Provider: 09:31 Subjective/Events-last exam POD #5 BM yesterday Mobility issues, secondary to pain Review of Systems General: No Chills, No Night Sweats Pulmonary: No Cough Gastrointestinal: No: Nausea, Vomiting Genitourinary: No Incontinence Musculoskeletal: back pain; No: leg pain Neurological: No: Confusion Objective Exam Vital Signs Date Time Temp Pulse Resp B/P (MAP) Pulse Ox O2 Delivery O2 Flow Rate FiO2 01/12/18 09:05 97.3 01/12/18 08:04 97.3 98 16 166/79 (108) 95 Nasal Cannula 2.00 01/12/18 04:00 98.0 98 20 177/90 (119) 96 Nasal Cannula 1.00 01/12/18 00:00 97.9 97 18 175/85 (115) 96 Nasal Cannula 2.00 01/11/18 21:00 95 Nasal Cannula 3.00 01/11/18 20:30 98.2 100 18 173/85 (114) 92 Nasal Cannula 2.00 01/11/18 15:59 97.3 98 18 159/83 (108) 92 Room Air 01/11/18 12:00 98.1 102 20 168/84 (112) 95 Nasal Cannula 3.00 01/11/18 11:13 Nasal Cannula 2.00 I & O 01/12/18 07:00 Intake Total 1240 ml Output Total 280 ml Balance 960 ml Capillary Refill : General Appearance: No No Apparent Distress Neck: Non Tender Respiratory: No Respiratory Distress Extremity: Non Tender, No Calf Tenderness Neurologic/Psychiatric: Alert, Oriented x3, No Motor/Sensory Deficits, Normal Mood/Affect Skin: Normal Color, Other (Dressing CDI, No Grimm-Henning's or Rainer's ) Results Lab Laboratory Tests 01/12/18 04:25: White Blood Count 11.5H, Red Blood Count 3.00L, Hemoglobin 8.5L, Hematocrit 27L , Mean Corpuscular Volume 90, Mean Corpuscular Hemoglobin 28, Mean Corpuscular Hemoglobin Concent 32, Red Cell Distribution Width 14.5, Platelet Count 367, Mean Platelet Volume 8.4, Neutrophils (%) (Auto) 84H, Lymphocytes (%) (Auto) 7L , Monocytes (%) (Auto) 9, Eosinophils (%) (Auto) 1, Basophils (%) (Auto) 0, Neutrophils # (Auto) 9.6H, Lymphocytes # (Auto) 0.8L, Monocytes # (Auto) 1.0, Eosinophils # (Auto) 0.1, Basophils # (Auto) 0.0, Sodium Level 138, Potassium Level 3.8, Chloride Level 103, Carbon Dioxide Level 23, Anion Gap 12, Blood Urea Nitrogen 19H, Creatinine 0.80, Estimat Glomerular Filtration Rate > 60, BUN /Creatinine Ratio 24, Glucose Level 115H, Calcium Level 8.9, Phosphorus Level 2.8, Magnesium Level 1.8 Microbiology 01/07/18 MRSA Screen - Final, Complete MRSA not isolated Assessment/Plan Assessment/Plan Assess & Plan/Chief Complaint Lumbar stenosis with radiculopathy Thoracolumbar scoliosis s/p L4-S1 ALIF, L1-4 DLIF, T6-S2 PSF with L1-3 laminectomy DC planning Obtain lumbar x-ray to evaluate L1-2 lateral hardware Clinical Quality Measures DVT/VTE Risk/Contraindication: Risk Factor Score Per Nursin RFS Level Per Nursing on Admit: 4+=Very High LUIS JOHNSON Jan 12, 2018 09:34
--- NOTE | 2018-01-12 10:57 | Diagnostic Imaging Report ---
EXAMINATION: Lumbar spine radiographs, 2 views. COMPARISON: None. HISTORY: 57-year-old male, postop. FINDINGS: There is extensive spinal hardware extending beyond the upper margin of the included [id number]. There are fixation screws extending into the iliac bones bilaterally. There is disc space material at L1-L2, L2-L3, L3-L4, L4-L5, and L5-S1. The hardware appears intact. There is no identified periprosthetic lucency. There are skin jyothi at the level of midline. There is a mild thoracolumbar dextrocurvature. The anterior to posterior alignment of the spine is grossly unremarkable. There is a partially visualized left hip prosthesis. IMPRESSION: 1. Visualized portions of the extensive hardware are intact. Dictated by: Dictated on workstation # [id number]
--- NOTE | 2018-01-12 11:37 | Physical Therapy Daily Note ---
PT Daily Note-Current Subjective Pt up in chair without thoracic brace in place. Pt rates pain 3/10, says he is "just real tired from not being able to sleep for so long before surgery". Agreeable to PT. Pt requests BR privileges during treatment. Mental Status Patient Orientation: Person, Place, Situation Attachments: Oxygen, IV Portable O2 2/min, f/u of IV and O2. Transfers Functional [place] Measure 0=Not Assessed/NA 4=Minimal Assistance 1=Total Assistance 5=Supervision or Setup 2=Maximal Assistance 6=Modified [place] 3=Moderate Assistance 7=Complete IndependenceIRFPAI Quality Coding Scale 6 Independent with activity with or without an assistive device 5 Patient requires set up or clean up by helper. Patient completes activity by themselves 4 Supervision or touching assist (CGA). [place] provide cues , steadying assist 3 The helper provides less than half the effort to complete the activity 2 The helper provides more than half the effort to complete the activity 1 Dependent. The helper does all the effort to complete an activity 7 Patient refused to complete or attempt activity 9 The patient did not perform the activity before the current illness or injury 88 Not attempted due to Medical conditions or safety concerns Min A to stand from toilet, otherwise CGA Weight Bearing Right Lower Extremity: Right Weight Bearing/Tolerated Left Lower Extremity: Left Weight Bearing/Tolerated Gait Training PT amb with O2 and FWW x 100ft, slow steady speed. BR privileges mod (I) Treatments Thoraco lumbar brace applied with total assist. Assessment Current Status: Good Progress Pt eyes closed some of the time, answering questions with eyes closed. Appeared groggy. Pt answers all appropriate but somewhat delayed at times. Pt dylon very well, increased distance walked. Pt back to chair with call light, O2 insitu and all needs met. PT Senior Care Goals Backwinder Goals PT Backwinder Goals Time Frame: Jan 15, 2018 Transfers (B,C,W/C) (FIM): 6 Gait (FIM): 6 Gait distance (FIM): 3=150 ft Distance: 150' Gait Level of Assist: 6 Gait Assistive Device: FWW PT Plan Treatment/Plan Treatment Plan: Continue Plan of Care Treatment Plan: Bed Mobility, Education, Functional Activity Dot, Functional Strength, Gait, Safety, Therapeutic Exercise, Transfers Treatment Duration: Jan 15, 2018 Frequency: 11 times per week Estimated Hrs Per Day: .5 hour per day Patient and/or Family Agrees t: Yes Time/GCodes Time In: 1025 Time Out: 1055 Total Billed Treatment Time: 30 Total Billed Treatment 1, gait x 25min, FA 5 min ROBERTA GRIFFITHS CPTA Jan 12, 2018 11:37
--- NOTE | 2018-01-12 12:14 | Progress Note-Hospitalist ---
Subjective HPI/CC On Admission Date Seen by Provider: Jan 12, 2018 Time Seen by Provider: 11:15 CC: s/p spine surgery uncomplicated by Dr Roman POD # 1 HPI: This is a 57yoWM clinic patient of Dr Campuzano in [facility] who presents after an extensive spine surgery per Dr Roman. He has been monitored overnight in the ICU and has done well. Pt reports pain is moderate to severe and overall doing ok as expected. Checked meds and labs. Patient did have elevated creatinine and metabolic acidosis so Dr Corley has ordered IVF with bicarb. Subjective/Events-last exam Patient doing a little better today More pleasant today and appreciative Small bowel movement yesterday Passing gas today Pain is still an issue Very slow recovery Review of Systems General: Fatigue Musculoskeletal: back pain Objective Exam Vital Signs Vital Signs Date Time Temp Pulse Resp B/P (MAP) Pulse Ox O2 Delivery O2 Flow Rate FiO2 01/12/18 09:05 97.3 01/12/18 09:00 95 Nasal Cannula 3.00 01/12/18 08:04 98 16 166/79 (108) Capillary Refill : General Appearance: No Apparent Distress, WD/WN, Obese Respiratory: Chest Non Tender, Lungs Clear, Normal Breath Sounds, No Accessory Muscle Use, No Respiratory Distress Cardiovascular: Regular Rate, Rhythm, No Edema, No Gallop, No JVD, No Murmur, Normal Peripheral Pulses Gastrointestinal: Normal Bowel Sounds, Non Tender, Soft Extremity: Pedal Edema Neurologic/Psychiatric: Alert, Oriented x3, No Motor/Sensory Deficits, Normal Mood/Affect Results/Procedures Lab Laboratory Tests 01/12/18 04:25 Patient resulted labs reviewed. 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 mild HTN Obesity Chronic lower extremity edema Suspected DERIC Plan: Mobility Slow recovery Diagnosis/Problems Diagnosis/Problems (1) S/P spinal surgery Status: Acute (2) Leukocytosis Status: Acute Qualifiers: Leukocytosis type: leukemoid reaction Qualified Codes: D72.823 - Leukemoid reaction (3) Metabolic acidosis Status: Resolved (4) Renal failure Status: Resolved Qualifiers: Renal failure chronicity: acute Acute renal failure type: unspecified Qualified Codes: N17.9 - Acute kidney failure, unspecified (5) Hyperkalemia Status: Resolved (6) Hypertension Status: Chronic Qualifiers: Hypertension type: essential hypertension Qualified Codes: I10 - Essential (primary) hypertension (7) Edema Status: Chronic Qualifiers: Edema type: localized Qualified Codes: R60.0 - Localized edema (8) Obesity Status: Chronic Qualifiers: Obesity type: due to excess calories Obesity classification: adult class 2 (BMI 35 - 39.9) Serious obesity comorbidity presence: with serious comorbidity Body mass index: BMI 37.0-37.9 Qualified Codes: E66.01 - Morbid (severe) obesity due to excess calories; Z68.37 - Body mass index (bmi) 37.0- 37.9, adult Clinical Quality Measures DVT/VTE Risk/Contraindication: Risk Factor Score Per Nursin RFS Level Per Nursing on Admit: 4+=Very High DANIEL FOSTER DO Jan 12, 2018 12:14
[2018-01-12] MEDS: POLYETHYLENE GLYCOL 17 GM (MIRALAX) PACK PO SCH (21:15)
[2018-01-13] VITALS: BP 169/80
[2018-01-13 04:00] VITALS: BP 183/86
[2018-01-13] MEDS: NS IV 1000 ML 1,000 ML IV SCH (04:13)
[2018-01-13 04:41] LABS: BASOPHILS % (AUTO) 0 % (0-10); EOSINOPHILS # (AUTO) 0.2 10^3/uL (0.0-0.3); EOSINOPHILS % (AUTO) 2 % (0-10); HEMATOCRIT 29 % (40-54); HEMOGLOBIN 8.9 G/DL (13.3-17.7); LYMPHOCYTES # (AUTO) 0.7 X 10^3 (1.0-4.0); LYMPHOCYTES % (AUTO) 7 % (12-44); MEAN CORPUSCULAR HEMOGLOBIN 28 PG (25-34); MEAN CORPUSCULAR HGB CONC 31 G/DL (32-36); MEAN CORPUSCULAR VOLUME 91 FL (80-99); MEAN PLATELET VOLUME 8.8 FL (7.4-10.4); MONOCYTES # (AUTO) 1.4 X 10^3 (0.0-1.0); MONOCYTES % (AUTO) 13 % (0-12); NEUTROPHILS # (AUTO) 8.6 X 10^3 (1.8-7.8); NEUTROPHILS % (AUTO) 79 % (42-75); PLATELET COUNT 368 10^3/uL (130-400); RED BLOOD COUNT 3.16 10^6/uL (4.35-5.85); RED CELL DISTRIBUTION WIDTH 14.3 % (10.0-14.5); WHITE BLOOD COUNT 10.9 10^3/uL (4.3-11.0)
[2018-01-13 05:07] LABS: BUN/CREATININE RATIO 26; CALCIUM 8.9 MG/DL (8.5-10.1); CARBON DIOXIDE 22 MMOL/L (21-32); CHLORIDE 104 MMOL/L (98-107); CREATININE SERUM 0.72 MG/DL (0.60-1.30); GFR ESTIMATED > 60; GLUCOSE 96 MG/DL (70-105); MAGNESIUM 2.1 MG/DL (1.8-2.4); PHOSPHORUS 3.2 MG/DL (2.3-4.7); SODIUM 139 MMOL/L (135-145)
[2018-01-13] MEDS: MULTIVIT W/MINERALS TAB (THERAGRAN M) PO SCH (05:50)
[2018-01-13] MEDS: PANTOPRAZOLE 40 MG (PROTONIX) TAB PO SCH (05:50)
[2018-01-13] MEDS: oxyCODONE/APAP 10/325MG (PERCOCET 10) TABLET PO PRN (05:53)
[2018-01-13 08:23] VITALS: BP 136/63
[2018-01-13] MEDS: cloNIDine 0.1 MG (CATAPRES) TAB PO SCH ×3 (09:15→20:32)
[2018-01-13] MEDS: lisINopril 20 MG (PRINIVIL) TABLET PO SCH (09:15)
[2018-01-13] MEDS: oxyCODONE ER 20 MG (OxyCONTIN CR) TAB PO SCH ×3 (09:15→20:32)
[2018-01-13] MEDS: SENNOSIDES 8.6 MG (SENOKOT) TAB PO SCH ×2 (09:15→20:32)
[2018-01-13] MEDS: DOCUSATE SODIUM 100 MG (COLACE) CAP PO SCH ×2 (09:15→20:32)
[2018-01-13] MEDS: amLODIPine 5 MG (NORVASC) TAB PO SCH (09:15)
--- NOTE | 2018-01-13 11:29 | Progress Note-Hospitalist ---
Subjective HPI/CC On Admission Date Seen by Provider: Jan 13, 2018 Time Seen by Provider: 11:00 CC: s/p spine surgery uncomplicated by Dr Roman POD # 1 HPI: This is a 57yoWM clinic patient of Dr Campuzano in [facility] who presents after an extensive spine surgery per Dr Roman. He has been monitored overnight in the ICU and has done well. Pt reports pain is moderate to severe and overall doing ok as expected. Checked meds and labs. Patient did have elevated creatinine and metabolic acidosis so Dr Corley has ordered IVF with bicarb. Subjective/Events-last exam Very slow recovery Inpatient rehabilitation eval Large bowel movement early this morning Eating a little bit more Very difficult to motivate Objective Exam Vital Signs Vital Signs Date Time Temp Pulse Resp B/P (MAP) Pulse Ox O2 Delivery O2 Flow Rate FiO2 01/13/18 11:38 Nasal Cannula 2.00 01/13/18 09:45 96.3 01/13/18 08:23 82 16 136/63 (87) 99 Capillary Refill : General Appearance: No Apparent Distress, WD/WN, Chronically ill, Obese Respiratory: Chest Non Tender, Lungs Clear, Normal Breath Sounds, No Accessory Muscle Use, No Respiratory Distress Cardiovascular: Regular Rate, Rhythm, No Edema, No Gallop, No JVD, No Murmur, Normal Peripheral Pulses Back: Decreased Range of Motion Neurologic/Psychiatric: Alert, Oriented x3, No Motor/Sensory Deficits, Normal Mood/Affect Results/Procedures Lab Laboratory Tests 01/13/18 03:02 Patient resulted labs reviewed. 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 HTN Obesity Chronic lower extremity edema Suspected DERIC Plan: Mobility Slow recovery Diagnosis/Problems Diagnosis/Problems (1) S/P spinal surgery Status: Acute (2) Leukocytosis Status: Resolved Qualifiers: Leukocytosis type: leukemoid reaction Qualified Codes: D72.823 - Leukemoid reaction (3) Metabolic acidosis Status: Resolved (4) Renal failure Status: Resolved Qualifiers: Renal failure chronicity: acute Acute renal failure type: unspecified Qualified Codes: N17.9 - Acute kidney failure, unspecified (5) Hyperkalemia Status: Resolved (6) Hypertension Status: Chronic Qualifiers: Hypertension type: essential hypertension Qualified Codes: I10 - Essential (primary) hypertension (7) Edema Status: Chronic Qualifiers: Edema type: localized Qualified Codes: R60.0 - Localized edema (8) Obesity Status: Chronic Qualifiers: Obesity type: due to excess calories Obesity classification: adult class 2 (BMI 35 - 39.9) Serious obesity comorbidity presence: with serious comorbidity Body mass index: BMI 37.0-37.9 Qualified Codes: E66.01 - Morbid (severe) obesity due to excess calories; Z68.37 - Body mass index (bmi) 37.0- 37.9, adult Clinical Quality Measures DVT/VTE Risk/Contraindication: Risk Factor Score Per Nursin RFS Level Per Nursing on Admit: 4+=Very High DANIEL FOSTER DO Jan 13, 2018 11:29
--- NOTE | 2018-01-13 12:13 | Progress Note (SOAP) ---
Subjective Date Seen by a Provider: Jan 13, 2018 Time Seen by a Provider: 12:12 Subjective/Events-last exam No complaints Objective Exam Vital Signs Date Time Temp Pulse Resp B/P (MAP) Pulse Ox O2 Delivery O2 Flow Rate FiO2 01/13/18 11:38 Nasal Cannula 2.00 01/13/18 09:45 96.3 01/13/18 09:00 Nasal Cannula 2.00 01/13/18 08:23 96.3 82 16 136/63 (87) 99 Nasal Cannula 2.00 01/13/18 04:00 97.4 96 16 183/86 (118) 98 Nasal Cannula 2.00 01/13/18 00:00 96.6 99 16 169/80 (109) 98 Nasal Cannula 2.00 01/12/18 21:00 Nasal Cannula 2.00 01/12/18 19:53 96.3 95 20 158/76 (103) 99 Nasal Cannula 2.00 01/12/18 15:13 97.3 95 18 170/82 (111) 100 Nasal Cannula 2.00 01/12/18 14:18 Nasal Cannula 2.00 I & O 01/13/18 07:00 Intake Total 710 ml Output Total 170 ml Balance 540 ml Capillary Refill : General Appearance: No Apparent Distress Respiratory: No Accessory Muscle Use, No Respiratory Distress Cardiovascular: Normal Peripheral Pulses Gastrointestinal: non tender, soft Extremity: Normal Capillary Refill, No Calf Tenderness Neurologic/Psychiatric: Alert, Oriented x3, No Motor/Sensory Deficits Results Lab Laboratory Tests 01/13/18 03:02: White Blood Count 10.9, Red Blood Count 3.16L, Hemoglobin 8.9L, Hematocrit 29L, Mean Corpuscular Volume 91, Mean Corpuscular Hemoglobin 28, Mean Corpuscular Hemoglobin Concent 31L, Red Cell Distribution Width 14.3, Platelet Count 368, Mean Platelet Volume 8.8, Neutrophils (%) (Auto) 79H, Lymphocytes (%) (Auto) 7L , Monocytes (%) (Auto) 13H, Eosinophils (%) (Auto) 2, Basophils (%) (Auto) 0, Neutrophils # (Auto) 8.6H, Lymphocytes # (Auto) 0.7L, Monocytes # (Auto) 1.4H, Eosinophils # (Auto) 0.2, Basophils # (Auto) 0.0, Sodium Level 139, Potassium Level 4.0, Chloride Level 104, Carbon Dioxide Level 22, Anion Gap 13, Blood Urea Nitrogen 19H, Creatinine 0.72, Estimat Glomerular Filtration Rate > 60, BUN /Creatinine Ratio 26, Glucose Level 96, Calcium Level 8.9, Phosphorus Level 3.2 , Magnesium Level 2.1 Microbiology 01/07/18 MRSA Screen - Final, Complete MRSA not isolated Assessment/Plan Assessment/Plan Assess & Plan/Chief Complaint Scoliosis Post Laminectomy Syndrome Lumbar Stenosis, neural canal and neuroforaminal Plan:Continue Pain control Mobilize Possible Rehab Clinical Quality Measures DVT/VTE Risk/Contraindication: Risk Factor Score Per Nursin RFS Level Per Nursing on Admit: 4+=Very High RAFIQ DOS SANTOS MD Jan 13, 2018 12:13 pm
[2018-01-13 12:47] VITALS: BP 168/75
[2018-01-13 15:36] VITALS: BP 146/67
[2018-01-13 19:18] VITALS: BP 156/81
[2018-01-13] MEDS: POLYETHYLENE GLYCOL 17 GM (MIRALAX) PACK PO SCH (20:32)
[2018-01-14] VITALS: BP 176/81
[2018-01-14] MEDS: NS IV 1000 ML 1,000 ML IV SCH ×2 (03:41→15:23)
[2018-01-14 04:00] VITALS: BP 166/77
[2018-01-14] MEDS: MULTIVIT W/MINERALS TAB (THERAGRAN M) PO SCH (05:20)
[2018-01-14] MEDS: PANTOPRAZOLE 40 MG (PROTONIX) TAB PO SCH (05:20)
[2018-01-14] MEDS: oxyCODONE/APAP 10/325MG (PERCOCET 10) TABLET PO PRN ×4 (05:24→18:46)
[2018-01-14 05:32] LABS: BASOPHILS % (AUTO) 0 % (0-10); EOSINOPHILS # (AUTO) 0.2 10^3/uL (0.0-0.3); EOSINOPHILS % (AUTO) 2 % (0-10); HEMATOCRIT 27 % (40-54); HEMOGLOBIN 8.6 G/DL (13.3-17.7); LYMPHOCYTES # (AUTO) 0.7 X 10^3 (1.0-4.0); LYMPHOCYTES % (AUTO) 7 % (12-44); MEAN CORPUSCULAR HGB CONC 32 G/DL (32-36); MEAN CORPUSCULAR VOLUME 90 FL (80-99); MEAN PLATELET VOLUME 8.2 FL (7.4-10.4); MONOCYTES % (AUTO) 10 % (0-12); NEUTROPHILS # (AUTO) 8.1 X 10^3 (1.8-7.8); NEUTROPHILS % (AUTO) 81 % (42-75); PLATELET COUNT 386 10^3/uL (130-400); RED BLOOD COUNT 3.02 10^6/uL (4.35-5.85); RED CELL DISTRIBUTION WIDTH 14.4 % (10.0-14.5); WHITE BLOOD COUNT 10.1 10^3/uL (4.3-11.0)
[2018-01-14 05:37] LABS: MEAN CORPUSCULAR HEMOGLOBIN 28 PG (25-34)
[2018-01-14 05:50] LABS: BUN/CREATININE RATIO 26; CALCIUM 8.3 MG/DL (8.5-10.1); CARBON DIOXIDE 22 MMOL/L (21-32); CHLORIDE 106 MMOL/L (98-107); CREATININE SERUM 0.74 MG/DL (0.60-1.30); GFR ESTIMATED > 60; GLUCOSE 109 MG/DL (70-105); MAGNESIUM 1.8 MG/DL (1.8-2.4); PHOSPHORUS 2.9 MG/DL (2.3-4.7); POTASSIUM 3.7 MMOL/L (3.6-5.0); SODIUM 140 MMOL/L (135-145)
--- NOTE | 2018-01-14 07:02 | Progress Note (SOAP) ---
Subjective Date Seen by a Provider: Jan 14, 2018 Time Seen by a Provider: 06:57 Subjective/Events-last exam POD #7, s/p L4-S1 ALIF, L1-4 DLIF, PSF T6-Pelvis with L1-3 laminectomy VSS Resting comfortably during exam Lumbar x-ray confirms interbodies are in good position Review of Systems General: No Chills Gastrointestinal: No: Nausea, Vomiting Musculoskeletal: back pain; No: leg pain Neurological: Weakness; No: Numbness, Confusion Objective Exam Vital Signs Date Time Temp Pulse Resp B/P (MAP) Pulse Ox O2 Delivery O2 Flow Rate FiO2 01/14/18 04:00 97.5 90 16 166/77 (106) 94 Room Air 01/14/18 00:00 96.7 88 16 176/81 (112) 94 Nasal Cannula 2.00 01/13/18 21:00 Nasal Cannula 2.00 01/13/18 19:18 96.3 91 20 156/81 (106) 95 Nasal Cannula 2.00 01/13/18 15:36 96.4 92 16 146/67 (93) 94 Nasal Cannula 2.00 01/13/18 13:31 96.2 01/13/18 12:47 96.2 95 18 168/75 (106) 94 Nasal Cannula 2.00 01/13/18 11:38 Nasal Cannula 2.00 01/13/18 09:00 Nasal Cannula 2.00 01/13/18 08:23 96.3 82 16 136/63 (87) 99 Nasal Cannula 2.00 I & O 01/14/18 07:00 Intake Total 840 ml Output Total 50 ml Balance 790 ml Capillary Refill : General Appearance: No Apparent Distress Cardiovascular: Normal Peripheral Pulses Gastrointestinal: non tender, soft Extremity: Non Tender, No Calf Tenderness Results Lab Laboratory Tests 01/14/18 05:20: White Blood Count 10.1, Red Blood Count 3.02L, Hemoglobin 8.6L, Hematocrit 27L, Mean Corpuscular Volume 90, Mean Corpuscular Hemoglobin 28, Mean Corpuscular Hemoglobin Concent 32, Red Cell Distribution Width 14.4, Platelet Count 386, Mean Platelet Volume 8.2, Neutrophils (%) (Auto) 81H, Lymphocytes (%) (Auto) 7L , Monocytes (%) (Auto) 10, Eosinophils (%) (Auto) 2, Basophils (%) (Auto) 0, Neutrophils # (Auto) 8.1H, Lymphocytes # (Auto) 0.7L, Monocytes # (Auto) 1.0, Eosinophils # (Auto) 0.2, Basophils # (Auto) 0.0, Sodium Level 140, Potassium Level 3.7, Chloride Level 106, Carbon Dioxide Level 22, Anion Gap 12, Blood Urea Nitrogen 19H, Creatinine 0.74, Estimat Glomerular Filtration Rate > 60, BUN /Creatinine Ratio 26, Glucose Level 109H, Calcium Level 8.3L, Phosphorus Level 2.9, Magnesium Level 1.8 Microbiology 01/07/18 MRSA Screen - Final, Complete MRSA not isolated Assessment/Plan Assessment/Plan Assess & Plan/Chief Complaint Lumbar stenosis with radiculopathy Thoracolumbar scoliosis s/p L4-S1 ALIF, L1-4 DLIF, T6-S2 PSF with L1-3 laminectomy DC planning Clinical Quality Measures DVT/VTE Risk/Contraindication: Risk Factor Score Per Nursin RFS Level Per Nursing on Admit: 4+=Very High LUIS JOHNSON Jan 14, 2018 07:02
[2018-01-14 08:13] VITALS: BP 173/81
[2018-01-14] MEDS: oxyCODONE ER 20 MG (OxyCONTIN CR) TAB PO SCH ×3 (08:26→20:17)
[2018-01-14] MEDS: amLODIPine 5 MG (NORVASC) TAB PO SCH (08:26)
[2018-01-14] MEDS: SENNOSIDES 8.6 MG (SENOKOT) TAB PO SCH ×2 (08:27→20:17)
[2018-01-14] MEDS: lisINopril 20 MG (PRINIVIL) TABLET PO SCH (08:27)
[2018-01-14] MEDS: DOCUSATE SODIUM 100 MG (COLACE) CAP PO SCH ×2 (08:27→20:17)
[2018-01-14] MEDS: cloNIDine 0.1 MG (CATAPRES) TAB PO SCH ×3 (08:27→20:17)
--- NOTE | 2018-01-14 09:49 | Physical Therapy Daily Note ---
PT Daily Note-Current Subjective Pt just received breakfast when PT arrived. Pt agreed to get up and work with PT after being encouraged. Pain Numeric Pain Scale: 8 Location: Posterior Location Body Site: Back Pain Description: Acute Mental Status Patient Orientation: Normal For Age Attachments: IV Transfers Functional [place] Measure 0=Not Assessed/NA 4=Minimal Assistance 1=Total Assistance 5=Supervision or Setup 2=Maximal Assistance 6=Modified [place] 3=Moderate Assistance 7=Complete IndependenceIRFPAI Quality Coding Scale 6 Independent with activity with or without an assistive device 5 Patient requires set up or clean up by helper. Patient completes activity by themselves 4 Supervision or touching assist (CGA). [place] provide cues , steadying assist 3 The helper provides less than half the effort to complete the activity 2 The helper provides more than half the effort to complete the activity 1 Dependent. The helper does all the effort to complete an activity 7 Patient refused to complete or attempt activity 9 The patient did not perform the activity before the current illness or injury 88 Not attempted due to Medical conditions or safety concerns Transfers (B, C, W/C) (FIM): 4 Scootin Rollin Supine to/from Sit: 4 Sit to/from Stand: 5 Weight Bearing Right Lower Extremity: Right Weight Bearing/Tolerated Left Lower Extremity: Left Weight Bearing/Tolerated Gait Training Gait (FIM): 2 Distance (FIM): 8=962-87 ft Distance: 125' Gait Level of Assist: 4 Gait Persons Needed: 1 Gait Assistive Device: FWW Assessment Pt was able to ambulate for 150' with a FWW requiring CGA. Patient reported a pain level of 8/10 during ambulation. Pt requested assistance to use restroom when returning to room before transferring to bedside chair to eat breakfast. He will continue to benefit from therapy to increase overall endurance and strength for daily demands. Per patient report, he has a hospital bed and commode at home for use upon dismissal. PT Results Engineer Goals Results Engineer Goals PT [facility] Goals Time Frame: Jan 15, 2018 Transfers (B,C,W/C) (FIM): 6 Gait (FIM): 6 Gait distance (FIM): 3=150 ft Distance: 150' Gait Level of Assist: 6 Gait Assistive Device: FWW PT Plan Problem List Problem List: Activity Tolerance, Functional Strength, Safety, Balance, Gait, Transfer, Bed Mobility, ROM Treatment/Plan Treatment Plan: Continue Plan of Care Treatment Plan: Bed Mobility, Education, Functional Activity Dot, Functional Strength, Gait, Safety, Therapeutic Exercise, Transfers Treatment Duration: Jan 15, 2018 Frequency: 11 times per week Estimated Hrs Per Day: .5 hour per day Patient and/or Family Agrees t: Yes Time/GCodes Time In: 846 Time Out: 909 Total Billed Treatment Time: 23 Total Billed Treatment 1 visit GT - 13 mins FA - 10 mins CAMILO GUAMAN PT Jan 14, 2018 09:49
[2018-01-14 12:00] VITALS: BP 173/81
--- NOTE | 2018-01-14 13:12 | Occupational Ther Daily Note ---
OT Current Status-Daily Note Subjective Pt alert, sitting in recliner. Pt required encouragement to participate in therapy. No c/o pain. Pt has flat affect and does not make eye contact when discussing treatment plan. Mental Status/Objective Patient Orientation: Person, Place, Time, Situation Functional [place] Measure 0=Not Assessed/NA 4=Minimal Assistance 1=Total Assistance 5=Supervision or Setup 2=Maximal Assistance 6=Modified [place] 3=Moderate Assistance 7=Complete [place] Other Treatment Pt able to complete grooming after set up. Pt then completed medium resistant theraband exercises 1 set 15 reps. Pt needed reminders for which exercises to complete. After therapy, pt sitting in recliner waiting on lunch. All needs met. OT Short Term Goals Short Term Goals 1=Demonstrate adherence to instructed precautions during ADL tasks. 2=Patient will verbalize/demonstrate understanding of assistive devices/ modifications for ADL. 3=Patient will improve strength/tolerance for activity to enable patient to perform ADL's. OT Global Clinical Leader Goals Global Clinical Leader Goals Time Frame: Jan 15, 2018 Eating (FIM): 6 Grooming(FIM): 6 Bathing(FIM): 5 Upper Body Dressing(FIM): 5 Lower Body Dressing(FIM): 5 Toileting(FIM): 5 Toilet/Commode Transfer(FIM): 5 Shower Transfer(FIM): 5 Additional Goals: 1-Demonstrate ADL Tasks, 2-Verbalize Understanding, 3- ImproveStrength/Dot 1=Demonstrate adherence to instructed precautions during ADL tasks. 2=Patient will verbalize/demonstrate understanding of assistive devices/ modifications for ADL. 3=Patient will improve strength/tolerance for activity to enable patient to perform ADL's. OT Education/Plan Problem List/Assessment Pt would benefit from skilled OT to increase his independence in basic self care to allow him to safely return home Discharge Recommendations Plan/Recommendations: Continue POC Treatment Plan/Plan of Care Patient would benefit from OT for education, treatment and training to promote independence in ADL's, mobility, safety and/or upper extremity function for ADL' s. Plan of Care: ADL Retraining, Functional Mobility, UE Funct Exercise/Act Treatment Duration: Jan 15, 2018 Frequency: 5 times per week Estimated Hrs Per Day: .5 hour per day Agreement: Yes Rehab Potential: Good Time/GCodes Start Time: 12:50 Stop Time: 13:05 Total Time Billed (hr/min): 15 Billed Treatment Time 1 visit-FA 1 (15 min) KUMAR CRUZ Jan 14, 2018 13:12
--- NOTE | 2018-01-14 14:04 | Physical Therapy Progress Note ---
Therapy Progress Note Patient declined PT reporting, "I just don't feel like it." PT attempted to educate patient on importance of mobility to prevent possible negative outcomes , however, patient continued to decline. 1 ref ([id number]) CAMILO GUAMAN PT Jan 14, 2018 14:04
[2018-01-14 16:00] VITALS: BP 160/74
[2018-01-14 19:45] VITALS: BP 143/67
[2018-01-14] MEDS: POLYETHYLENE GLYCOL 17 GM (MIRALAX) PACK PO SCH (20:17)
[2018-01-15] VITALS: BP 181/84
[2018-01-15] MEDS: oxyCODONE/APAP 10/325MG (PERCOCET 10) TABLET PO PRN ×2 (03:15→08:45)
[2018-01-15 04:00] VITALS: BP 161/77
[2018-01-15] MEDS: PANTOPRAZOLE 40 MG (PROTONIX) TAB PO SCH (06:06)
[2018-01-15] MEDS: MULTIVIT W/MINERALS TAB (THERAGRAN M) PO SCH (06:06)
[2018-01-15 06:13] LABS: BASOPHILS % (AUTO) 0 % (0-10); EOSINOPHILS # (AUTO) 0.1 10^3/uL (0.0-0.3); EOSINOPHILS % (AUTO) 2 % (0-10); HEMATOCRIT 26 % (40-54); HEMOGLOBIN 8.2 G/DL (13.3-17.7); LYMPHOCYTES % (AUTO) 12 % (12-44); MEAN CORPUSCULAR HEMOGLOBIN 28 PG (25-34); MEAN CORPUSCULAR HGB CONC 31 G/DL (32-36); MEAN CORPUSCULAR VOLUME 90 FL (80-99); MEAN PLATELET VOLUME 8.4 FL (7.4-10.4); MONOCYTES # (AUTO) 0.9 X 10^3 (0.0-1.0); MONOCYTES % (AUTO) 11 % (0-12); NEUTROPHILS # (AUTO) 6.5 X 10^3 (1.8-7.8); NEUTROPHILS % (AUTO) 76 % (42-75); PLATELET COUNT 361 10^3/uL (130-400); RED CELL DISTRIBUTION WIDTH 14.1 % (10.0-14.5); WHITE BLOOD COUNT 8.6 10^3/uL (4.3-11.0)
[2018-01-15 06:31] LABS: BUN/CREATININE RATIO 22; CALCIUM 8.3 MG/DL (8.5-10.1); CARBON DIOXIDE 26 MMOL/L (21-32); CHLORIDE 106 MMOL/L (98-107); CREATININE SERUM 0.74 MG/DL (0.60-1.30); GFR ESTIMATED > 60; GLUCOSE 105 MG/DL (70-105); MAGNESIUM 1.7 MG/DL (1.8-2.4); POTASSIUM 3.9 MMOL/L (3.6-5.0); SODIUM 140 MMOL/L (135-145)
--- NOTE | 2018-01-15 06:44 | Discharge Summary ---
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 Admitted for surgical correction. Discharge Summary Hospital Course Hospital Course Admitted to hospital, Procedure performed, to ICU, and subsequently to floor. Pain controlled, electrolytes and fluid managed Tolerating diet, BM and mobilized. Ready for d/c home Labs Laboratory Tests 01/13/18 03:02: Red Blood Count 3.16L, Hemoglobin 8.9L, Hematocrit 29L, Mean Corpuscular Hemoglobin Concent 31L, Neutrophils (%) (Auto) 79H, Lymphocytes (%) (Auto) 7L, Monocytes (%) (Auto) 13H, Neutrophils # (Auto) 8.6H, Lymphocytes # (Auto) 0.7L, Monocytes # (Auto) 1.4H, Blood Urea Nitrogen 19H 01/14/18 05:20: Red Blood Count 3.02L, Hemoglobin 8.6L, Hematocrit 27L, Neutrophils (%) (Auto) 81H, Lymphocytes (%) (Auto) 7L, Neutrophils # (Auto) 8.1H, Lymphocytes # (Auto) 0.7L, Blood Urea Nitrogen 19H, Glucose Level 109H, Calcium Level 8.3L 01/15/18 06:03: Red Blood Count 2.90L, Hemoglobin 8.2L, Hematocrit 26L, Mean Corpuscular Hemoglobin Concent 31L, Neutrophils (%) (Auto) 76H, Calcium Level 8.3L, Magnesium Level 1.7L Procedures T6-Pelvis PSF with revision laminectomy Consultations Pulmonary/Critical Care Internal Medicine/Hospitalist PT/OT Discharge Physical Examination Allergies: Coded Allergies: No Known Drug Allergies (Unverified , 09/26/17) Vitals & I&Os Vital Signs Date Time Temp Pulse Resp B/P (MAP) Pulse Ox O2 Delivery O2 Flow Rate FiO2 01/15/18 00:00 96.6 91 16 181/84 (116) 94 Room Air 01/14/18 09:00 2.00 General Appearance: Alert, Oriented X3, Cooperative Respiratory: Normal Air Movement Cardiovascular: Regular Rate Abdominal: Normal Bowel Sounds, Soft, No Tenderness Extremities: Normal Pulses, No Tenderness/Swelling Skin: No Rashes, No Breakdown Neuro: Strength at 5/5 X4 Ext Psych/Mental Status: Mental Status NL Discharge Home Medications Reviewed and agree with Discharge Medication list on patient's Discharge Instruction sheet Instructions to Patient/Family Please see electronic discharge instructions given to patient. Clinical Quality Measures DVT/VTE Risk/Contraindication: Risk Factor Score Per Nursin RFS Level Per Nursing on Admit: 4+=Very High RAFIQ DOS SANTOS MD Jan 15, 2018 06:44
[2018-01-15] MEDS ORDERED: TIZA4TAB11 PO (06:49)
[2018-01-15] MEDS ORDERED: SENN-141 PO (06:49)
[2018-01-15] MEDS ORDERED: DOCU100C37 PO (06:49)
[2018-01-15] MEDS ORDERED: OXC20TCR PO (06:49)
[2018-01-15] MEDS ORDERED: OXYC1TAB12 PO (06:49)
[2018-01-15 08:00] VITALS: BP 178/80
[2018-01-15] MEDS: SENNOSIDES 8.6 MG (SENOKOT) TAB PO SCH (08:39)
[2018-01-15] MEDS: lisINopril 20 MG (PRINIVIL) TABLET PO SCH (08:39)
[2018-01-15] MEDS: cloNIDine 0.1 MG (CATAPRES) TAB PO SCH ×2 (08:39→13:25)
[2018-01-15] MEDS: amLODIPine 5 MG (NORVASC) TAB PO SCH (08:39)
[2018-01-15] MEDS: DOCUSATE SODIUM 100 MG (COLACE) CAP PO SCH (08:39)
[2018-01-15] MEDS: oxyCODONE ER 20 MG (OxyCONTIN CR) TAB PO SCH ×2 (08:44→13:25)
--- NOTE | 2018-01-15 09:11 | Progress Note-Hospitalist ---
Subjective HPI/CC On Admission Date Seen by Provider: Jan 15, 2018 Time Seen by Provider: 09:10 CC: s/p spine surgery uncomplicated by Dr Roman POD # 1 HPI: This is a 57yoWM clinic patient of Dr Campuzano in [facility] who presents after an extensive spine surgery per Dr Roman. He has been monitored overnight in the ICU and has done well. Pt reports pain is moderate to severe and overall doing ok as expected. Checked meds and labs. Patient did have elevated creatinine and metabolic acidosis so Dr Corley has ordered IVF with bicarb. Subjective/Events-last exam Patient going home today He reports he has a walker and a hospital bed already at home Social work will touch base in case he needs anything else to support him for success at home Bowels are moving Overall flat affect but that is baseline Review of Systems Musculoskeletal: back pain Objective Exam Vital Signs Vital Signs Date Time Temp Pulse Resp B/P (MAP) Pulse Ox O2 Delivery O2 Flow Rate FiO2 01/15/18 04:00 96.5 86 16 161/77 (105) 95 Room Air 01/14/18 09:00 2.00 Capillary Refill : General Appearance: No Apparent Distress, WD/WN, Chronically ill, Obese Neurologic/Psychiatric: Alert, Oriented x3, No Motor/Sensory Deficits, Depressed Affect Results/Procedures Lab Laboratory Tests 01/15/18 06:03 Patient resulted labs reviewed. 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 mild HTN Obesity Chronic lower extremity edema Suspected DERIC Plan: ID home Diagnosis/Problems Diagnosis/Problems (1) S/P spinal surgery Status: Acute (2) Leukocytosis Status: Resolved Qualifiers: Leukocytosis type: leukemoid reaction Qualified Codes: D72.823 - Leukemoid reaction Resolution Date/Time: 01/13/18 @ 11:48 (3) Metabolic acidosis Status: Resolved Resolution Date/Time: 01/09/18 @ 11:34 (4) Renal failure Status: Resolved Qualifiers: Renal failure chronicity: acute Acute renal failure type: unspecified Qualified Codes: N17.9 - Acute kidney failure, unspecified Resolution Date/Time: 01/09/18 @ 11:34 (5) Hyperkalemia Status: Resolved Resolution Date/Time: 01/09/18 @ 11:34 (6) Hypertension Status: Chronic Qualifiers: Hypertension type: essential hypertension Qualified Codes: I10 - Essential (primary) hypertension (7) Edema Status: Chronic Qualifiers: Edema type: localized Qualified Codes: R60.0 - Localized edema (8) Obesity Status: Chronic Qualifiers: Obesity type: due to excess calories Obesity classification: adult class 2 (BMI 35 - 39.9) Serious obesity comorbidity presence: with serious comorbidity Body mass index: BMI 37.0-37.9 Qualified Codes: E66.01 - Morbid (severe) obesity due to excess calories; Z68.37 - Body mass index (bmi) 37.0- 37.9, adult Clinical Quality Measures DVT/VTE Risk/Contraindication: Risk Factor Score Per Nursin RFS Level Per Nursing on Admit: 4+=Very High DANIEL FOSTER DO Jan 15, 2018 09:11
--- NOTE | 2018-01-15 11:23 | Physical Therapy Daily Note ---
PT Daily Note-Current Subjective Pt asleep in chair and woke to PT entering room. Pt agreed to get up and walk with PT after encouragement. Pain Numeric Pain Scale: 0-No Pain Location: No Pain Reported Location Body Site: Back Pain Description: Acute Mental Status Attachments: IV Transfers Functional [place] Measure 0=Not Assessed/NA 4=Minimal Assistance 1=Total Assistance 5=Supervision or Setup 2=Maximal Assistance 6=Modified [place] 3=Moderate Assistance 7=Complete IndependenceIRFPAI Quality Coding Scale 6 Independent with activity with or without an assistive device 5 Patient requires set up or clean up by helper. Patient completes activity by themselves 4 Supervision or touching assist (CGA). [place] provide cues , steadying assist 3 The helper provides less than half the effort to complete the activity 2 The helper provides more than half the effort to complete the activity 1 Dependent. The helper does all the effort to complete an activity 7 Patient refused to complete or attempt activity 9 The patient did not perform the activity before the current illness or injury 88 Not attempted due to Medical conditions or safety concerns Weight Bearing Right Lower Extremity: Right Weight Bearing/Tolerated Left Lower Extremity: Left Weight Bearing/Tolerated Gait Training Gait (FIM): 2 Distance (FIM): 6=878-98 ft Distance: 100' Gait Level of Assist: 5 Gait Persons Needed: 1 Gait Assistive Device: FWW Assessment Pt was able to ambulate with a FWW requiring SBA. Pt is not motivated and needs encouragement to participate in therapy. Pt will continue to benefit from ambulation to maintain current function. PT Senior Living Goals Senior Living Goals PT Machine Cell Tuber Goals Time Frame: Jan 15, 2018 Transfers (B,C,W/C) (FIM): 6 Gait (FIM): 6 Gait distance (FIM): 3=150 ft Distance: 150' Gait Level of Assist: 6 Gait Assistive Device: FWW PT Plan Problem List Problem List: Activity Tolerance, Functional Strength, Safety, Balance, Gait, Transfer, Bed Mobility Treatment/Plan Treatment Plan: Continue Plan of Care Treatment Plan: Bed Mobility, Education, Functional Activity Dot, Functional Strength, Gait, Safety, Therapeutic Exercise, Transfers Treatment Duration: Jan 15, 2018 Frequency: 11 times per week Estimated Hrs Per Day: .5 hour per day Patient and/or Family Agrees t: Yes Time/GCodes Time In: 1104 Time Out: 1116 Total Billed Treatment Time: 12 Total Billed Treatment 1 Visit FA 12' ROWENA,CAMILO PT Jan 15, 2018 11:23
[2018-01-15 14:24] VITALS: BP 178/80
--- NOTE | 2018-01-15 14:40 | Occupational Ther Daily Note ---
OT Current Status-Daily Note Subjective Pt seen in room, agreeable to OT. Preparing for discharge Appearance Alert, cooperative Mental Status/Objective Functional [place] Measure 0=Not Assessed/NA 4=Minimal Assistance 1=Total Assistance 5=Supervision or Setup 2=Maximal Assistance 6=Modified [place] 3=Moderate Assistance 7=Complete [place] ADL-Treatment Pt and fiancee education on doffing and donning clamshell back brace. Recommend t shirt underneath for comfort. Discussed cleaning back brace with mild soap and water, if needed, and to keep away from hot surfaces. Return demonstration. Pt educ to push up from surfaces rather than pulling up from walker and how to put on gait belt. Verbal understanding. DC with goals met to patient satisfaction. Education OT Patient Education: Instructions to caregiver, Modified ADL techniques, Purpose of tx/functional activities Teaching Recipient: Patient, Significant Other Teaching Methods: Demonstration, Discussion Response to Teaching: Verbalize Understanding, Return Demonstration OT Short Term Goals Short Term Goals 1=Demonstrate adherence to instructed precautions during ADL tasks. 2=Patient will verbalize/demonstrate understanding of assistive devices/ modifications for ADL. 3=Patient will improve strength/tolerance for activity to enable patient to perform ADL's. OT Battalion Chief Goals Half-Way Goals Time Frame: Jan 15, 2018 Eating (FIM): 6 Grooming(FIM): 6 Bathing(FIM): 5 Upper Body Dressing(FIM): 5 Lower Body Dressing(FIM): 5 Toileting(FIM): 5 Toilet/Commode Transfer(FIM): 5 Shower Transfer(FIM): 5 Additional Goals: 1-Demonstrate ADL Tasks, 2-Verbalize Understanding, 3- ImproveStrength/Dot 1=Demonstrate adherence to instructed precautions during ADL tasks. 2=Patient will verbalize/demonstrate understanding of assistive devices/ modifications for ADL. 3=Patient will improve strength/tolerance for activity to enable patient to perform ADL's. OT Education/Plan Problem List/Assessment Pt would benefit from skilled OT to increase his independence in basic self care to allow him to safely return home Discharge Recommendations Plan/Recommendations: Discharge/Goals Met (to patient satisfaction) Treatment Plan/Plan of Care Patient would benefit from OT for education, treatment and training to promote independence in ADL's, mobility, safety and/or upper extremity function for ADL' s. Plan of Care: ADL Retraining, Functional Mobility, UE Funct Exercise/Act Treatment Duration: Jan 15, 2018 Frequency: 5 times per week Estimated Hrs Per Day: .5 hour per day Agreement: Yes Rehab Potential: Good Time/GCodes Start Time: 14:15 Stop Time: 14:30 Total Time Billed (hr/min): 15 Billed Treatment Time visit, 15 minutes GOLDIE RODNEY OT Jan 15, 2018 14:40
== END 2018-01-15 14:38 | disposition home or self-care (01) | DRG 454 ==
LOC: 4TH 08:44 → SURG 08:45 → ICU 19:56 → 4TH 01-10 12:10
PROVIDERS: ADMIT Orthopaedic Surgery Orthopaedic Surgery of the Spine; ATTEND Internal Medicine
PROC: 0SG30A0 Fusion of Lumbosacral Joint with Interbody Fusion Device, Anterior Approach, Anterior Column, Open Approach (ICD-10-PCS; 2018-01-07)
PROC: 0RG7071 Fusion of 2 to 7 Thoracic Vertebral Joints with Autologous Tissue Substitute, Posterior Approach, Posterior Column, Open Approach (ICD-10-PCS; 2018-01-07)
PROC: 0RGA071 Fusion of Thoracolumbar Vertebral Joint with Autologous Tissue Substitute, Posterior Approach, Posterior Column, Open Approach (ICD-10-PCS; 2018-01-07)
PROC: 0SG1071 Fusion of 2 or more Lumbar Vertebral Joints with Autologous Tissue Substitute, Posterior Approach, Posterior Column, Open Approach (ICD-10-PCS; 2018-01-07)
PROC: 0SG3071 Fusion of Lumbosacral Joint with Autologous Tissue Substitute, Posterior Approach, Posterior Column, Open Approach (ICD-10-PCS; 2018-01-07)
PROC: 0SB20ZZ Excision of Lumbar Vertebral Disc, Open Approach (ICD-10-PCS; 2018-01-07)
PROC: 01NB0ZZ Release Lumbar Nerve, Open Approach (ICD-10-PCS; 2018-01-07)
PROC: 0QH104Z Insertion of Internal Fixation Device into Sacrum, Open Approach (ICD-10-PCS; 2018-01-07)
PROC: 0SG10A0 Fusion of 2 or more Lumbar Vertebral Joints with Interbody Fusion Device, Anterior Approach, Anterior Column, Open Approach (ICD-10-PCS; principal; 2018-01-07 09:46)
DX: M96.1 Postlaminectomy syndrome, not elsewhere classified (principal); M51.16 Intervertebral disc disorders with radiculopathy, lumbar region; N17.9 Acute kidney failure, unspecified; E87.2 Acidosis; N28.9 Disorder of kidney and ureter, unspecified; D72.823 Leukemoid reaction; E87.5 Hyperkalemia; M19.91 Primary osteoarthritis, unspecified site; I12.9 Hypertensive chronic kidney disease with stage 1 through stage 4 chronic kidney disease, or unspecified chronic kidney disease; N18.2 Chronic kidney disease, stage 2 (mild); R00.0 Tachycardia, unspecified; E78.00 Pure hypercholesterolemia, unspecified; E66.01 Morbid (severe) obesity due to excess calories; R60.0 Localized edema; G47.33 Obstructive sleep apnea (adult) (pediatric); I95.9 Hypotension, unspecified; Z96.642 Presence of left artificial hip joint; Z98.1 Arthrodesis status; Z68.37 Body mass index [BMI] 37.0-37.9, adult
CPT/HCPCS: 36415; 36569; 71045; 72082; 72100; 76937; 80048; 80053; 83605; 83735; 84100; 85025; 85027; 86850; 86900; 86901; 87081